=== PATIENT | male | born 1955 | race Caucasian/White ===

== ENCOUNTER 2016-04-16 08:49 | Inpatient (IN) | payer MEDICARE, OTHER ==
[2016-04-16] MEDS ORDERED: IPRATROPIUM 0.5 MG/2.5 ML NEBU INHALATION STA (09:00)
[2016-04-16] MEDS ORDERED: ALBUTEROL NEBULIZED 2.5 MG/3 ML INHALATION STA (09:00)
--- NOTE | 2016-04-16 09:02 | ED ---
General Adult HPI - General Stated complaint: TAWNY Time Seen by Provider: 04/16/16 08:50 Source: RN notes reviewed - History of Present Illness Initial comments: This is a 61-year-old male with past medical history significant for some chronic cellulitis on his legs as well as COPD. Patient states he has not been using his treatments as of late because he doesn't think they work. Patient states his difficulty breathing is gotten progressively worse over the last 3 days. Patient states she's had no chest pain or palpitations. Patient states had no fever chills or cough. Patient states the difficulty breathing is getting worse particularly with movement. Patient denies any abdominal pain. Patient denies nausea vomiting or diarrhea. Patient denies headache patient denies numbness weakness. Patient denies lightheadedness dizziness or near- syncopal episode. - Related Data Home Medications Medication Instructions Recorded Confirmed ARIPiprazole [Abilify] 2 mg PO DAILY 12/08/13 03/24/16 Albuterol Inhaler [Ventolin Hfa 2 puff INHALATION RT-QID PRN 12/08/13 03/24/16 Inhaler] Lisinopril [Zestril] 20 mg PO DAILY 12/08/13 03/24/16 Theophylline 24 Hour [Mark-24] 400 mg PO HS 12/08/13 03/24/16 Venlafaxine HCl ER [Effexor XR] 150 mg PO DAILY 12/08/13 03/24/16 Hydrochlorothiazide [Hydrodiuril] 50 mg PO DAILY 07/09/15 03/24/16 Allopurinol [Zyloprim] 300 mg PO DAILY 11/11/15 03/24/16 Diphenox-Atrop 2.5-0.025 mg 2 tab PO QID PRN 11/11/15 03/24/16 [Lomotil] Furosemide [Lasix] 40 mg PO DAILY 11/11/15 03/24/16 buPROPion HCL [Wellbutrin XL] 300 mg PO DAILY 11/11/15 03/24/16 clonazePAM [KlonoPIN] 0.5 mg PO QAM 12/09/15 03/24/16 clonazePAM [KlonoPIN] 2 mg PO HS 12/09/15 03/24/16 Ergocalciferol (Vitamin D2) 50,000 unit PO Q30D 01/12/16 03/24/16 [Drisdol] Butalbit/Acetamin/Caff/Codeine 1 cap PO Q6H PRN 03/24/16 03/24/16 [Fioricet-Cod 17-767-52-30 Cap] traZODone HCL 225 mg PO HS 03/24/16 03/24/16 Previous Rx's Medication Instructions Recorded HYDROcodone/APAP 7.5-325MG [[place] 1 tab PO Q6HR PRN #30 tab 07/12/15 7.5-325] QUEtiapine [SEROquel] 100 mg PO HS tab 08/24/15 predniSONE 10 mg PO DAILY tab 11/13/15 Doxazosin [Cardura] 1 mg PO DAILY tab 12/11/15 Ipratropium-Albuterol Nebulize 3 ml INHALATION RT-QID ampul.neb 12/11/15 [Duoneb 0.5 mg-3 mg/3 ml Soln] Allergies Allergy/AdvReac Type Severity Reaction Status Date / Time No Known Allergies Allergy Verified 04/16/16 09:45 Review of Systems ROS Statement: Those systems with pertinent positive or pertinent negative responses have been documented in the HPI. ROS Other: All systems not noted in ROS Statement are negative. Past Medical History Past Medical History: Asthma, Chest Pain / Angina, COPD, Hypertension, Osteoarthritis (OA), Respiratory Disorder Additional Past Medical History / Comment(s): O2 AT HOME 5 LITERS N/C CONT, MIGRAINES, obesity, KODI LOWER LEG CELLULITIS. History of Any Multi-Drug Resistant Organisms: None Reported Past Surgical History: Appendectomy, Orthopedic Surgery Additional Past Surgical History / Comment(s): RT EYE SX, RT ANKLE BROKEN 1977 HAD ORIF PLATE/PINS Past Anesthesia/Blood Transfusion Reactions: No Reported Reaction Additional Past Anesthesia/Blood Transfusion Reaction / Comment(s): CLAUSTERPHOBIA Past Psychological History: Anxiety, Depression Additional Psychological History / Comment(s): PT CURRENTLY LIVING AT [facility]. USES WALKER/POWER CHAIR BUT STATED ONLY ABLE TO AMBULATE VERY SHORT DISTANCES AND GETS SOB WITH EXERTION. PT IS RETIRED FROM [email or web address]. Smoking Status: Former smoker Past Alcohol Use History: None Reported Additional Past Alcohol Use History / Comment(s): STARTED SMOKING AT AGE 11 SMOKED 2 PPD QUIT 2010, HAS'NT DRANK ETOH SINCE AGE 28(STATED WAS AN ALCOHOLIC FROM AGE [age]) Past Drug Use History: None Reported - Past Family History Father Family Medical History: Diabetes Mellitus Additional Family Medical History / Comment(s): IN 2004 COMPLICATIONS FROM DIABETES Mother Additional Family Medical History / Comment(s): AGE 56 OF FEMALE [place] General Exam - General Exam Comments Initial Comments: GENERAL: Patient is well-developed and well-nourished. Patient is nontoxic and well- hydrated and is in mild distress. ENT: Neck is soft and supple. No significant lymphadenopathy is noted. Oropharynx is clear. Moist mucous membranes. Neck has full range of motion without eliciting any pain. EYES: The sclera were anicteric and conjunctiva were pink and moist. Extraocular movements were intact and pupils were equal round and reactive to light. Eyelids were unremarkable. PULMONARY: Patient has diminished breath sounds with some expiratory wheezing. CARDIOVASCULAR: There is a regular rate and rhythm without any murmurs gallops or rubs. ABDOMEN: Soft and nontender with normal bowel sounds. No palpable organomegaly was noted. There is no palpable pulsatile mass. SKIN: Skin is clear with no lesions or rashes and otherwise unremarkable. NEUROLOGIC: Patient is alert and oriented x3. Cranial nerves II through XII are grossly intact. Motor and sensory are also intact. Normal speech, volume and content. Symmetrical smile. MUSCULOSKELETAL: Normal extremities with adequate strength and full range of motion. No lower extremity swelling or edema. No calf tenderness. LYMPHATICS: No significant lymphadenopathy is noted PSYCHIATRIC: Normal psychiatric evaluation. Normal interpersonal interactions appears functionally intact in deals appropriately with others. No signs of depression. No signs of anxiety. Course Vital Signs 04/16/16 04/16/16 04/16/16 09:07 09:10 09:20 Temperature 97.3 F L Pulse Rate 89 88 Respiratory 18 18 Rate Blood Pressure 134/76 O2 Sat by Pulse 97 Oximetry 04/16/16 04/16/16 09:50 10:29 Temperature Pulse Rate 91 99 Respiratory 18 Rate Blood Pressure 139/71 O2 Sat by Pulse 95 Oximetry Medical Decision Making - Medical Decision Making According to EMS he was oxygenating in the mid 80s when they found him. Patient received breathing treatments in the emergency department after the treatment she still had an x-ray recent diminished breath sounds. I spoke Dr. Boyer and he wanted the patient admitted the patient. EKG shows normal sinus rhythm at 96 bpm PA interval is on a 56 QRS is 90 QT interval 366 QTC is 462. Patient's EKG shows no ST segment elevation or depression or T wave abnormalities are noted. - Lab Data Result diagrams: 04/16/16 09:35 04/16/16 09:35 Lab Results 04/16/16 04/16/16 04/16/16 Range/Units 09:35 09:35 09:35 WBC 9.2 (3.8-10.6) k/uL RBC 5.10 (4.30-5.90) m/uL Hgb 15.4 (13.0-17.5) gm/dL Hct 48.1 (39.0-53.0) % MCV 94.4 (80.0-100.0) fL MCH 30.3 (25.0-35.0) pg MCHC 32.1 (31.0-37.0) g/dL RDW 14.4 (11.5-15.5) % Plt Count 282 (150-450) k/uL Neutrophils % 72 % Lymphocytes % 10 % Monocytes % 10 % Eosinophils % 5 % Basophils % 1 % Neutrophils # 6.6 (1.3-7.7) k/uL Lymphocytes # 0.9 L (1.0-4.8) k/uL Monocytes # 0.9 (0-1.0) k/uL Eosinophils # 0.5 (0-0.7) k/uL Basophils # 0.1 (0-0.2) k/uL PT (9.0-12.0) sec INR (<1.1) APTT (22.0-30.0) sec Sodium 137 (137-145) mmol/L Potassium 4.2 (3.5-5.1) mmol/L Chloride 98 (98-107) mmol/L Carbon Dioxide 31 H (22-30) mmol/L Anion Gap 8 mmol/L BUN 9 (9-20) mg/dL Creatinine 0.80 (0.66-1.25) mg/dL Est GFR (MDRD) Af Amer >60 (>60 ml/min/1.73 sqM) Est GFR (MDRD) Non-Af >60 (>60 ml/min/1.73 sqM) Glucose 114 H (74-99) mg/dL Calcium 9.3 (8.4-10.2) mg/dL Magnesium 2.0 (1.6-2.3) mg/dL Total Bilirubin 0.3 (0.2-1.3) mg/dL AST 28 (17-59) U/L ALT 39 (21-72) U/L Alkaline Phosphatase 79 (38-126) U/L Total Creatine Kinase 68 (55-170) U/L CK-MB (CK-2) 1.5 (0.0-2.4) ng/mL CK-MB (CK-2) Rel Index 2.2 Troponin I <0.012 (0.000-0.034) ng/mL NT-Pro-B Natriuret Pep pg/mL Total Protein 6.3 (6.3-8.2) g/dL Albumin 3.9 (3.5-5.0) g/dL 04/16/16 04/16/16 Range/Units 09:35 09:35 WBC (3.8-10.6) k/uL RBC (4.30-5.90) m/uL Hgb (13.0-17.5) gm/dL Hct (39.0-53.0) % MCV (80.0-100.0) fL MCH (25.0-35.0) pg MCHC (31.0-37.0) g/dL RDW (11.5-15.5) % Plt Count (150-450) k/uL Neutrophils % % Lymphocytes % % Monocytes % % Eosinophils % % Basophils % % Neutrophils # (1.3-7.7) k/uL Lymphocytes # (1.0-4.8) k/uL Monocytes # (0-1.0) k/uL Eosinophils # (0-0.7) k/uL Basophils # (0-0.2) k/uL PT 10.2 (9.0-12.0) sec INR 1.0 (<1.1) APTT 25.1 (22.0-30.0) sec Sodium (137-145) mmol/L Potassium (3.5-5.1) mmol/L Chloride (98-107) mmol/L Carbon Dioxide (22-30) mmol/L Anion Gap mmol/L BUN (9-20) mg/dL Creatinine (0.66-1.25) mg/dL Est GFR (MDRD) Af Amer (>60 ml/min/1.73 sqM) Est GFR (MDRD) Non-Af (>60 ml/min/1.73 sqM) Glucose (74-99) mg/dL Calcium (8.4-10.2) mg/dL Magnesium (1.6-2.3) mg/dL Total Bilirubin (0.2-1.3) mg/dL AST (17-59) U/L ALT (21-72) U/L Alkaline Phosphatase (38-126) U/L Total Creatine Kinase (55-170) U/L CK-MB (CK-2) (0.0-2.4) ng/mL CK-MB (CK-2) Rel Index Troponin I (0.000-0.034) ng/mL NT-Pro-B Natriuret Pep 139 pg/mL Total Protein (6.3-8.2) g/dL Albumin (3.5-5.0) g/dL Disposition Clinical Impression: Acute exacerbation of chronic obstructive airways disease Disposition: ADMITTED IP TO THIS HOSP Referrals: Brien Simms MD [Primary Care Provider] - 1-2 days Time of Disposition: 11:45
[2016-04-16 09:59] LABS: Basophils # (A) 0.1 k/uL (0-0.2); Basophils % (A) 1 %; CH 30.8; CHCM 32.8; Eosinophils # (A) 0.5 k/uL (0-0.7); Eosinophils % (A) 5 %; HCT 48.1 % (39.0-53.0); HDW 2.67; HGB 15.4 gm/dL (13.0-17.5); Luc # (Auto) 0.25; Luc % (Auto) 3; Lymphocytes # (A) 0.9 k/uL (1.0-4.8); Lymphocytes % (A) 10 %; MCH 30.3 pg (25.0-35.0); MCHC 32.1 g/dL (31.0-37.0); MCV 94.4 fL (80.0-100.0); Mean Platelet Volume 8.2; Monocytes # (A) 0.9 k/uL (0-1.0); Monocytes % (A) 10 %; Neutrophils # (A) 6.6 k/uL (1.3-7.7); Neutrophils % (A) 72 %; RDW 14.4 % (11.5-15.5); WBC 9.2 k/uL (3.8-10.6); WBC (Perox) 9.12
[2016-04-16 10:11] LABS: ALT 39 U/L (21-72); AST 28 U/L (17-59); Alkaline Phosphatase 79 U/L (38-126); Anion Gap 8 mmol/L; Blood Urea Nitrogen 9 mg/dL (9-20); Calcium 9.3 mg/dL (8.4-10.2); Carbon Dioxide 31 mmol/L (22-30); Chloride 98 mmol/L (98-107); Glucose 114 mg/dL (74-99); Non-African American GFR(MDRD) >60 (>60 ml/min/1.73 sqM); Potassium 4.2 mmol/L (3.5-5.1); Sodium 137 mmol/L (137-145); Total Bilirubin 0.3 mg/dL (0.2-1.3); Total Protein 6.3 g/dL (6.3-8.2)
[2016-04-16 10:14] LABS: Partial Thromboplastin Time 25.1 sec (22.0-30.0); Prothrombin Time 10.2 sec (9.0-12.0)
--- NOTE | 2016-04-16 10:17 | XR ---
EXAMINATION TYPE: XR chest 2V DATE OF EXAM: 04/16/2016 10:10 AM COMPARISON: NONE INDICATION: Difficulty breathing COPD abnormal previous TECHNIQUE: Frontal and lateral views of the chest are obtained. FINDINGS: The heart size is normal. The pulmonary vasculature is normal. There are increased lung markings to the left midlung. Nodular density somewhat better visualized on the left infrahilar region. Small left pleural effusion likely remains present. Parapharyngeal increa sed lung markings at the right lung base, milder than on the left. Overall, the bilateral lung infilt rates have improved. IMPRESSION: 1. Pleural effusions, larger on the left. 2. Bibasilar infiltrates. There may be some improvement from prior examination. 3. Nodular density in the left infrahilar region is not excluded this would measure 1 cm in transvers e dimension
[2016-04-16 10:25] LABS: Creatine Kinase 68 U/L (55-170)
[2016-04-16 10:39] LABS: Creatine Kinase MB 1.5 ng/mL (0.0-2.4); Troponin I <0.012 ng/mL (0.000-0.034)
[2016-04-16] MEDS ORDERED: IPRATROPIUM-ALBUTEROL 3 ML NEB INHALATION PRN (11:45)
[2016-04-16] MEDS: methylPREDNISolone SOD SUCCI 125 MG/2 ML VIAL IV SCH ×4 (12:38→22:52)
[2016-04-16] MEDS ORDERED: DIPHENOX-ATROP 2.5-0.025 MG 1 EACH TAB PO PRN (14:40)
[2016-04-16] MEDS ORDERED: BUTA/APAP/CAF/COD 50-325-40-30 CAP PO PRN (14:40)
[2016-04-16] MEDS: HYDROcodone/APAP 7.5-325MG 1 EACH TAB PO PRN (15:32)
[2016-04-16] MEDS: IPRATROPIUM-ALBUTEROL 3 ML NEB INHALATION SCH ×2 (15:59→20:45)
[2016-04-16] MEDS: INSULIN LISPRO (humaLOG) 300 UNIT/3 ML VIAL SQ SCH ×2 (17:29→21:23)
--- NOTE | 2016-04-16 20:23 | HP ---
DATE OF ADMISSION: 04/16/2016 CHIEF COMPLAINT: Difficulty breathing. HISTORY OF PRESENT ILLNESS: This is another admission for this 61-year-old obese male with COPD. He is very noncompliant and takes poor care of himself and frequently develops respiratory failure and comes to the emergency room. He was just in the hospital a few weeks ago. In the ER he complained of no hemoptysis, chest pain, fever, chills, nausea, vomiting, etc. The emergency room physician felt that he should be admitted. REVIEW OF SYSTEMS: Otherwise unremarkable. He is having no headaches, neurologic problems, GI problems, etc. Past medical history, family history, and personal and social histories are all otherwise unremarkable and noncontributory and unchanged. ALLERGIES: ALLOPURINOL. MEDICATIONS: 1. Seroquel 100 mg at bedtime. 2. Lisinopril 20 mg once a day. 3. Lomotil 2 q.i.d. p.r.n. 4. Lasix 40 mg once a day. 5. Fioricet p.r.n. 6. Nasal oxygen and updrafts. 7. Vicodin 7.5/325. 8. Abilify 2 mg once a day. 9. Prednisone 10 mg once a day. 10. Hydrochlorothiazide 50 mg once a day. 11. Vitamin D 50,000 units a month. 12. Cardura 1 mg once a day. 13. Symbicort 160/4.5 one puff twice a day. 14. Wellbutrin 300 mg once a day. 15. Theophylline 400 mg once a night. 16. Effexor 150 mg once a day. 17. Metronidazole cream twice a day. 18. Updrafts with DuoNeb and Ventolin HFA. Remainder of history is unremarkable. He does not smoke any longer. PHYSICAL EXAMINATION: VITAL SIGNS: Blood pressure 126/84 with a pulse of 98, respirations of 38, temperature 99.6. In general he appeared to be short of breath and in no acute distress. Skin was dry. Lymph nodes are not enlarged. Head, ears, eyes, nose, mouth and throat were normal. The chest demonstrated poor breath sounds with wheezing and rhonchi. The cardiac exam was normal except for sinus tachycardia. The abdomen is protuberant and soft. Extremities demonstrated ( ) dermatitis on the legs and there was edema. IMPRESSION: 1. Acute respiratory failure. 2. Chronic obstructive pulmonary disease. 3. Schizophrenia. PLAN: 1. Bed rest. 2. IV fluids. 3. IV and inhaled steroids. 4. Updrafts.
[2016-04-16] MEDS: SYMBICORT 160-4.5 MCG INHALER INHALATION SCH (20:45)
[2016-04-16] MEDS ORDERED: THEOPHYLLINE 24 HOUR 400 MG CAP.ER.24H PO SCH (21:00)
[2016-04-16] MEDS ORDERED: clonazePAM 1 MG TAB PO SCH (21:00)
[2016-04-16] MEDS ORDERED: traZODone HCL 100 MG TAB PO SCH (21:00)
[2016-04-16] MEDS ORDERED: QUEtiapine 100 MG TAB PO SCH (21:00)
[2016-04-16] MEDS: AMMONIUM LACTATE 12% LOTION 225 GM BTL TOPICAL SCH (22:23)
[2016-04-16] MEDS ORDERED: traZODone HCL 50 MG TAB PO PRN (23:41)
[2016-04-17] MEDS: HYDROcodone/APAP 7.5-325MG 1 EACH TAB PO PRN (00:24)
[2016-04-17] MEDS: methylPREDNISolone SOD SUCCI 125 MG/2 ML VIAL IV SCH (05:03)
[2016-04-17] MEDS: IPRATROPIUM-ALBUTEROL 3 ML NEB INHALATION SCH ×2 (06:56→10:55)
[2016-04-17] MEDS: SYMBICORT 160-4.5 MCG INHALER INHALATION SCH (06:57)
[2016-04-17 07:50] VITALS: BP 149/70; PULSE 74; RESP 21; TEMP 97
[2016-04-17] MEDS: INSULIN LISPRO (humaLOG) 300 UNIT/3 ML VIAL SQ SCH (08:04)
[2016-04-17] MEDS: AMMONIUM LACTATE 12% LOTION 225 GM BTL TOPICAL SCH (08:09)
[2016-04-17 08:48] LABS: Basophils # (A) 0.1 k/uL (0-0.2); Basophils % (A) 1 %; CH 30.7; CHCM 32.2; Eosinophils # (A) 0.4 k/uL (0-0.7); Eosinophils % (A) 3 %; HCT 46.6 % (39.0-53.0); HDW 2.52; HGB 14.5 gm/dL (13.0-17.5); Luc # (Auto) 0.41; Luc % (Auto) 3; Lymphocytes # (A) 1.3 k/uL (1.0-4.8); Lymphocytes % (A) 10 %; MCHC 31.2 g/dL (31.0-37.0); MCV 95.9 fL (80.0-100.0); Mean Platelet Volume 8.4; Monocytes # (A) 0.4 k/uL (0-1.0); Monocytes % (A) 3 %; Neutrophils % (A) 80 %; RBC 4.85 m/uL (4.30-5.90); RDW 14.6 % (11.5-15.5); WBC 12.6 k/uL (3.8-10.6); WBC (Perox) 12.62
[2016-04-17 08:57] LABS: ALT 36 U/L (21-72); AST 32 U/L (17-59); Alkaline Phosphatase 81 U/L (38-126); Anion Gap 10 mmol/L; Blood Urea Nitrogen 15 mg/dL (9-20); Calcium 9.5 mg/dL (8.4-10.2); Carbon Dioxide 33 mmol/L (22-30); Chloride 97 mmol/L (98-107); Glucose 94 mg/dL (74-99); Non-African American GFR(MDRD) >60 (>60 ml/min/1.73 sqM); Potassium 4.6 mmol/L (3.5-5.1); Sodium 140 mmol/L (137-145); Total Bilirubin 0.4 mg/dL (0.2-1.3); Total Protein 6.3 g/dL (6.3-8.2)
[2016-04-17] MEDS ORDERED: HYDROCHLOROTHIAZIDE 50 MG TAB PO SCH (09:00)
[2016-04-17] MEDS ORDERED: LISINOPRIL 20 MG TAB PO SCH (09:00)
[2016-04-17] MEDS ORDERED: VENLAFAXINE HCL ER 150 MG CAP PO SCH (09:00)
[2016-04-17] MEDS ORDERED: FUROSEMIDE 40 MG TAB PO SCH (09:00)
[2016-04-17] MEDS ORDERED: ARIPiprazole 2 MG TAB PO SCH (09:00)
[2016-04-17] MEDS ORDERED: DOXAZOSIN 1 MG TAB PO SCH (09:00)
[2016-04-17] MEDS ORDERED: buPROPion XL 300 MG TAB.ER.24H PO SCH (09:00)
[2016-04-17] MEDS ORDERED: clonazePAM 0.5 MG TAB PO SCH (09:00)
[2016-04-17] MEDS ORDERED: ALLOPURINOL 300 MG TAB PO SCH (09:00)
--- NOTE | 2016-04-17 11:18 | P.DS ---
Providers Date of admission: 04/16/16 11:45 Expected date of discharge: 04/17/16 Attending physician: Brien Meyers Primary care physician: Brien Meyers [facility] Course: 61-year-old male presented on the day of admission to the emergency room for chief complaint of shortness of breath stated has gotten progressively worse over the last several days. Patient has known severe COPD. Additionally patient has chronic cellulitis involving the bilateral lower extremities. Patient stated that he had not been using his respiratory treatments for the past several days because he didn't think they were working for him. Patient denies any fever chills or cough. Patient denies any chest pain or heart palpitation. Patient denies any nausea vomiting. Patient stated his breathing seem to be getting worse with any movement. Patient has limited mobility uses a wheelchair motorized scooter. In the emergency room there was no evidence of a temp was 97.3 patient was afebrile patient has been very noncompliant with care follow-up visits in taking medication as directed. Patient was discharged on March 25 of this year for the same symptoms shortness of breath. Patient is not follow-up in the outpatient setting. It's noted that the patient has been refusing IV Solu-Medrol as well as respiratory treatments he feels they do not help him The chest x-ray obtained in the emergency room showed bilateral effusions larger on the left but basal infiltrate some improvement from prior patient refused all care insisted on going home Impression discharge diagnosis Present on admission shortness of breath noncompliant with using respiratory treatments at home Chronic dyspnea Advanced COPD supplemental oxygen home O2 5 L [id number] Morbid obesity BMI 43 Present on admission shortness of breath acute exacerbation asthma moderate persistent unable to determine the type Chest x-ray on admission pleural effusion larger on the left Chronic hypoxic respiratory failure home O2 supplement 5 L [id number] Chronic debilitated limited mobility uses a motorized scooter suspect due to deconditioning and advanced COPD Chronic pain opiate dependency Asthma with a COPD exacerbation Echocardiogram January 2016 left ventricular systolic function normal EF 55-60% no evidence of pulmonary hypertension Acute on chronic diastolic heart failure due to hypertensive heart disease with history of hypertension Frequent reoccurring admissions within the last 60 days suspect due to issues of noncompliance Bilateral chronic stasis dermatitis involving the bilateral lower extremities Present on admission chronic stasis dermatitis involving the bilateral lower extremities History of a mood disorder suspect bipolar The above dictated assessment and findings were discussed with dr meyers . Impression and the plan of care have been dictated as directed. [facility] [place] nurse practitioner acting as a scribe for dr meyers Plan - Discharge Summary Discharge Medication List ARIPiprazole [Abilify] 2 mg PO DAILY 12/08/13 [History] Albuterol Inhaler [Ventolin Hfa Inhaler] 2 puff INHALATION RT-QID PRN 12/08/13 [ History] Lisinopril [Zestril] 20 mg PO DAILY 12/08/13 [History] Theophylline 24 Hour [Mark-24] 400 mg PO HS 12/08/13 [History] Venlafaxine HCl ER [Effexor XR] 150 mg PO DAILY 12/08/13 [History] Hydrochlorothiazide [Hydrodiuril] 50 mg PO DAILY 07/09/15 [History] HYDROcodone/APAP 7.5-325MG [[place] 7.5-325] 1 tab PO Q6HR PRN #30 tab 07/12/15 [ Rx] QUEtiapine [SEROquel] 100 mg PO HS tab 08/24/15 [Rx] Allopurinol [Zyloprim] 300 mg PO DAILY 11/11/15 [History] Diphenox-Atrop 2.5-0.025 mg [Lomotil] 2 tab PO QID PRN 11/11/15 [History] Furosemide [Lasix] 40 mg PO DAILY 11/11/15 [History] buPROPion HCL [Wellbutrin XL] 300 mg PO DAILY 11/11/15 [History] clonazePAM [KlonoPIN] 0.5 mg PO QAM 12/09/15 [History] clonazePAM [KlonoPIN] 2 mg PO HS 12/09/15 [History] Doxazosin [Cardura] 1 mg PO DAILY tab 12/11/15 [Rx] Ipratropium-Albuterol Nebulize [Duoneb 0.5 mg-3 mg/3 ml Soln] 3 ml INHALATION RT -QID ampul.neb 12/11/15 [Rx] Ergocalciferol (Vitamin D2) [Drisdol] 50,000 unit PO Q30D 01/12/16 [History] Butalbit/Acetamin/Caff/Codeine [Fioricet-Cod 32-241-07-30 Cap] 1 cap PO Q6H PRN 03/24/16 [History] Budesonide/Formoterol Fumarate [Symbicort 160-4.5 Mcg Inhaler] 2 puff INHALATION RT-BID 04/16/16 [History] traZODone HCL 300 mg PO HS 04/16/16 [History] Follow up Appointment(s)/Referral(s): Brien Meyers MD [Primary Care Provider] - 1-2 days Discharge Disposition: HOME SELF-CARE
--- NOTE | 2016-04-17 19:13 | PN ---
DATE OF SERVICE: 04/17/2016 CHIEF COMPLAINT: Exacerbation of COPD. HISTORY OF PRESENT ILLNESS: This gentleman is doing well and he feels like he is completely cleared and could go back home. PHYSICAL EXAMINATION: His chest is clear but breath sounds are diminished due to his obesity and COPD. Cardiac exam is normal. The abdomen is soft and non-tender. Lower extremities remain erythematous and edematous, which is chronic. IMPRESSION: Exacerbation of chronic obstructive pulmonary disease. PLAN: Probably home today; this will be arranged by the nurse practitioner.
[2016-05-16] MEDS ORDERED: ERGOCALCIFEROL 50,000 UNIT CAP PO SCH (12:00)
== END 2016-04-17 13:48 | disposition home health service (06) | DRG 190 ==
LOC: EC 08:49 → 4MS4W 11:45
PROVIDERS: ADMIT Family Medicine; ATTEND Family Medicine
DX: J44.1 Chronic obstructive pulmonary disease with (acute) exacerbation (principal); I50.33 Acute on chronic diastolic (congestive) heart failure; J96.21 Acute and chronic respiratory failure with hypoxia; Z68.41 Body mass index [BMI] 40.0-44.9, adult; F11.20 Opioid dependence, uncomplicated; J45.41 Moderate persistent asthma with (acute) exacerbation; Z99.81 Dependence on supplemental oxygen; E66.01 Morbid (severe) obesity due to excess calories; I11.0 Hypertensive heart disease with heart failure; G89.29 Other chronic pain; M19.90 Unspecified osteoarthritis, unspecified site; I87.2 Venous insufficiency (chronic) (peripheral); F39 Unspecified mood [affective] disorder; Z91.19 Patient's noncompliance with other medical treatment and regimen; Z71.3 Dietary counseling and surveillance; Z90.49 Acquired absence of other specified parts of digestive tract; Z87.891 Personal history of nicotine dependence; Z79.51 Long term (current) use of inhaled steroids; Z79.899 Other long term (current) drug therapy; F41.9 Anxiety disorder, unspecified; G43.909 Migraine, unspecified, not intractable, without status migrainosus
CPT/HCPCS: 36415; 71020; 80053; 82550; 82553; 83735; 83880; 84484; 85025; 85610; 85730; 87040; 93005; 94640; 96374; 99285

== ENCOUNTER 2016-04-24 23:11 | Emergency (ER) | payer MEDICARE, OTHER ==
[2016-04-24 23:16] VITALS: TEMP 98.8
[2016-04-24] MEDS ORDERED: predniSONE 20 MG TAB PO STA (23:30)
[2016-04-24] MEDS ORDERED: IPRATROPIUM-ALBUTEROL 3 ML NEB INHALATION STA (23:30)
[2016-04-24 23:47] LABS: Aty Lym Flag Slight; CH 31.2; CHCM 33.2; HCT 46.4 % (39.0-53.0); HGB 14.9 gm/dL (13.0-17.5); MCH 30.2 pg (25.0-35.0); MCHC 32.1 g/dL (31.0-37.0); MCV 94.3 fL (80.0-100.0); Mean Platelet Volume 8.4; RBC 4.92 m/uL (4.30-5.90); RDW 14.7 % (11.5-15.5); WBC 10.5 k/uL (3.8-10.6); WBC (Perox) 10.55
--- NOTE | 2016-04-24 23:54 | ED ---
SOB HPI - General Chief Complaint: Shortness of Breath Stated Complaint: TAWNY Time Seen by Provider: 04/24/16 23:20 Source: patient, RN notes reviewed Mode of arrival: ambulatory - History of Present Illness Initial Comments: This patient is a 61-year-old man with previous history of COPD who presents with the complaint that his shortness of breath and flaring up for about 3-4 days now. The patient states that he had been trying albuterol at home but it doesn't seem to be helping much. He also is on home oxygen and states that it does not seem to be helping either. The patient is denying fevers or chills. He does have a cough with some yellow sputum for the past 2-3 days. He is not seeing any blood. Patient denies chest pain. He has not noted any change in urination. He does have some bilateral leg swelling but states that he has been having a flareup of cellulitis going on for about 3 weeks now. MD Complaint: shortness of breath, cough -: days(s) Known History Of: COPD Associated Symptoms: cough, sputum production - Related Data Home Medications Medication Instructions Recorded Confirmed ARIPiprazole [Abilify] 2 mg PO DAILY 12/08/13 04/24/16 Albuterol Inhaler [Ventolin Hfa 2 puff INHALATION RT-QID PRN 12/08/13 04/24/16 Inhaler] Lisinopril [Zestril] 20 mg PO DAILY 12/08/13 04/24/16 Theophylline 24 Hour [Mark-24] 400 mg PO HS 12/08/13 04/24/16 Venlafaxine HCl ER [Effexor XR] 150 mg PO DAILY 12/08/13 04/24/16 Hydrochlorothiazide [Hydrodiuril] 50 mg PO DAILY 07/09/15 04/24/16 Allopurinol [Zyloprim] 300 mg PO DAILY 11/11/15 04/24/16 Diphenox-Atrop 2.5-0.025 mg 2 tab PO QID PRN 11/11/15 04/24/16 [Lomotil] Furosemide [Lasix] 40 mg PO DAILY 11/11/15 04/24/16 buPROPion HCL [Wellbutrin XL] 300 mg PO DAILY 11/11/15 04/24/16 clonazePAM [KlonoPIN] 0.5 mg PO QAM 12/09/15 04/24/16 clonazePAM [KlonoPIN] 2 mg PO HS 12/09/15 04/24/16 Ergocalciferol (Vitamin D2) 50,000 unit PO Q30D 01/12/16 04/24/16 [Drisdol] Butalbit/Acetamin/Caff/Codeine 1 cap PO Q6H PRN 03/24/16 04/24/16 [Fioricet-Cod 42-896-20-30 Cap] Budesonide/Formoterol Fumarate 2 puff INHALATION RT-BID 04/16/16 04/24/16 [Symbicort 160-4.5 Mcg Inhaler] traZODone HCL 300 mg PO HS 04/16/16 04/24/16 Previous Rx's Medication Instructions Recorded HYDROcodone/APAP 7.5-325MG [[place] 1 tab PO Q6HR PRN #30 tab 07/12/15 7.5-325] QUEtiapine [SEROquel] 100 mg PO HS tab 08/24/15 Doxazosin [Cardura] 1 mg PO DAILY tab 12/11/15 Ipratropium-Albuterol Nebulize 3 ml INHALATION RT-QID ampul.neb 12/11/15 [Duoneb 0.5 mg-3 mg/3 ml Soln] Levofloxacin [Levaquin] 750 mg PO DAILY #7 tab 04/25/16 predniSONE 60 mg PO DAILY #30 tab 04/25/16 Allergies Allergy/AdvReac Type Severity Reaction Status Date / Time No Known Allergies Allergy Verified 04/24/16 23:33 Review of Systems ROS Statement: Those systems with pertinent positive or pertinent negative responses have been documented in the HPI. ROS Other: All systems not noted in ROS Statement are negative. Constitutional: Denies: fever, chills Respiratory: Reports: cough, dyspnea, wheezes. Denies: hemoptysis Cardiovascular: Reports: edema. Denies: chest pain, palpitations, syncope Gastrointestinal: Denies: abdominal pain, nausea, vomiting Genitourinary: Denies: dysuria, hematuria Musculoskeletal: Denies: back pain Skin: Reports: change in color, other (States he is having a flareup of cellulitis past 3 weeks). Denies: rash Neurological: Denies: headache, weakness, numbness Past Medical History Past Medical History: Asthma, Chest Pain / Angina, COPD, Hypertension, Osteoarthritis (OA), Respiratory Disorder Additional Past Medical History / Comment(s): O2 AT HOME 5 LITERS N/C CONT, MIGRAINES, obesity, KODI LOWER LEG CELLULITIS. History of Any Multi-Drug Resistant Organisms: None Reported Past Surgical History: Appendectomy, Orthopedic Surgery Additional Past Surgical History / Comment(s): RT EYE SX, RT ANKLE BROKEN 1977 HAD ORIF PLATE/PINS Past Anesthesia/Blood Transfusion Reactions: No Reported Reaction Additional Past Anesthesia/Blood Transfusion Reaction / Comment(s): CLAUSTERPHOBIA Past Psychological History: Anxiety, Depression Additional Psychological History / Comment(s): PT CURRENTLY LIVING AT [facility]. USES WALKER/POWER CHAIR BUT STATED ONLY ABLE TO AMBULATE VERY SHORT DISTANCES AND GETS SOB WITH EXERTION. PT IS RETIRED FROM [employer]. Smoking Status: Former smoker Past Alcohol Use History: None Reported Additional Past Alcohol Use History / Comment(s): STARTED SMOKING AT AGE 11 SMOKED 2 PPD QUIT 2010, HAS'NT DRANK ETOH SINCE AGE 28(STATED WAS AN ALCOHOLIC FROM AGE [age]) Past Drug Use History: None Reported - Past Family History Father Family Medical History: Diabetes Mellitus Additional Family Medical History / Comment(s): IN 2004 COMPLICATIONS FROM DIABETES Mother Additional Family Medical History / Comment(s): AGE 56 OF FEMALE [place] General Exam General appearance: alert, obese Head exam: Present: atraumatic, normocephalic Eye exam: Present: normal appearance. Absent: scleral icterus, conjunctival injection Respiratory exam: Present: respiratory distress (Mild tachypnea), wheezes. Absent: rales, rhonchi, stridor, decreased breath sounds, prolonged expiratory Cardiovascular Exam: Present: regular rate, normal rhythm, normal heart sounds. Absent: systolic murmur, diastolic murmur, rubs, gallop GI/Abdominal exam: Present: soft. Absent: distended, tenderness, guarding Extremities exam: Present: normal capillary refill, pedal edema. Absent: normal inspection, calf tenderness Back exam: Present: normal inspection. Absent: CVA tenderness (R), CVA tenderness (L) Neurological exam: Present: alert Skin exam: Present: warm, dry, intact, erythema, other (Patient does appear to have cellulitis to the bilateral pretibial areas.) Course Vital Signs 04/24/16 04/24/16 04/25/16 23:12 23:58 00:07 Temperature 98.8 F Pulse Rate 101 H 89 92 Respiratory 24 Rate Blood Pressure 137/67 O2 Sat by Pulse 94 L Oximetry 04/25/16 04/25/16 00:15 01:35 Temperature Pulse Rate 88 94 Respiratory 20 22 Rate Blood Pressure 127/68 123/75 O2 Sat by Pulse 97 94 L Oximetry Medical Decision Making - Lab Data Result diagrams: 04/24/16 23:27 04/24/16 23:27 Lab Results 04/24/16 04/24/16 04/24/16 Range/Units 00:43 23:27 23:27 WBC 10.5 (3.8-10.6) k/uL RBC 4.92 (4.30-5.90) m/uL Hgb 14.9 (13.0-17.5) gm/dL Hct 46.4 (39.0-53.0) % MCV 94.3 (80.0-100.0) fL MCH 30.2 (25.0-35.0) pg MCHC 32.1 (31.0-37.0) g/dL RDW 14.7 (11.5-15.5) % Plt Count 234 (150-450) k/uL Neutrophils % (Manual) 73.0 % Lymphocytes % (Manual) 7.0 % Monocytes % (Manual) 20.0 % Neutrophils # (Manual) 7.7 (1.3-7.7) k/uL Lymphocytes # (Manual) 0.7 L (1.0-4.8) k/uL Monocytes # (Manual) 2.1 H (0-1.0) k/uL Nucleated RBCs 0 (0-0) /100 WBC Manual Slide Review Performed Reactive Lymphocytes Present Large Platelets Present PT (9.0-12.0) sec INR (<1.1) APTT (22.0-30.0) sec D-Dimer (<0.60) mg/L FEU Sodium (137-145) mmol/L Potassium (3.5-5.1) mmol/L Chloride (98-107) mmol/L Carbon Dioxide (22-30) mmol/L Anion Gap mmol/L BUN (9-20) mg/dL Creatinine (0.66-1.25) mg/dL Est GFR (MDRD) Af Amer (>60 ml/min/1.73 sqM) Est GFR (MDRD) Non-Af (>60 ml/min/1.73 sqM) Glucose (74-99) mg/dL Calcium (8.4-10.2) mg/dL Total Bilirubin (0.2-1.3) mg/dL AST (17-59) U/L ALT (21-72) U/L Alkaline Phosphatase (38-126) U/L Total Creatine Kinase 97 (55-170) U/L CK-MB (CK-2) 2.2 (0.0-2.4) ng/mL CK-MB (CK-2) Rel Index 2.3 Troponin I <0.012 (0.000-0.034) ng/mL NT-Pro-B Natriuret Pep pg/mL Total Protein (6.3-8.2) g/dL Albumin (3.5-5.0) g/dL Urine Color Yellow Urine Appearance Clear (Clear) Urine pH 6.0 (5.0-8.0) Ur Specific [place] 1.011 (1.001-1.035) Urine Protein Negative (Negative) Urine Glucose (UA) Negative (Negative) Urine Ketones Negative (Negative) Urine Blood Negative (Negative) Urine Nitrate Negative (Negative) Urine Bilirubin Negative (Negative) Urine Urobilinogen <2.0 (<2.0) mg/dL Ur Leukocyte Esterase Negative (Negative) 04/24/16 04/24/16 04/24/16 Range/Units 23:27 23:27 23:27 WBC (3.8-10.6) k/uL RBC (4.30-5.90) m/uL Hgb (13.0-17.5) gm/dL Hct (39.0-53.0) % MCV (80.0-100.0) fL MCH (25.0-35.0) pg MCHC (31.0-37.0) g/dL RDW (11.5-15.5) % Plt Count (150-450) k/uL Neutrophils % (Manual) % Lymphocytes % (Manual) % Monocytes % (Manual) % Neutrophils # (Manual) (1.3-7.7) k/uL Lymphocytes # (Manual) (1.0-4.8) k/uL Monocytes # (Manual) (0-1.0) k/uL Nucleated RBCs (0-0) /100 WBC Manual Slide Review Reactive Lymphocytes Large Platelets PT 10.6 (9.0-12.0) sec INR 1.1 (<1.1) APTT 24.4 (22.0-30.0) sec D-Dimer 0.71 H (<0.60) mg/L FEU Sodium 133 L (137-145) mmol/L Potassium 4.3 (3.5-5.1) mmol/L Chloride 95 L (98-107) mmol/L Carbon Dioxide 29 (22-30) mmol/L Anion Gap 9 mmol/L BUN 17 (9-20) mg/dL Creatinine 0.90 (0.66-1.25) mg/dL Est GFR (MDRD) Af Amer >60 (>60 ml/min/1.73 sqM) Est GFR (MDRD) Non-Af >60 (>60 ml/min/1.73 sqM) Glucose 97 (74-99) mg/dL Calcium 8.9 (8.4-10.2) mg/dL Total Bilirubin 0.5 (0.2-1.3) mg/dL AST 35 (17-59) U/L ALT 43 (21-72) U/L Alkaline Phosphatase 92 (38-126) U/L Total Creatine Kinase (55-170) U/L CK-MB (CK-2) (0.0-2.4) ng/mL CK-MB (CK-2) Rel Index Troponin I (0.000-0.034) ng/mL NT-Pro-B Natriuret Pep 161 pg/mL Total Protein 6.7 (6.3-8.2) g/dL Albumin 4.1 (3.5-5.0) g/dL Urine Color Urine Appearance (Clear) Urine pH (5.0-8.0) Ur Specific [place] (1.001-1.035) Urine Protein (Negative) Urine Glucose (UA) (Negative) Urine Ketones (Negative) Urine Blood (Negative) Urine Nitrate (Negative) Urine Bilirubin (Negative) Urine Urobilinogen (<2.0) mg/dL Ur Leukocyte Esterase (Negative) - EKG Data -: EKG Interpreted by [facility] EKG shows normal: sinus rhythm, axis (Normal), intervals (Normal), QRS complexes (Low voltage QRS complexes), ST-T waves (Normal) Rate: normal (Rate 98 bpm) Disposition Clinical Impression: COPD (chronic obstructive pulmonary disease), Cellulitis, Pneumonia Disposition: HOME SELF-CARE Condition: Fair Instructions: Pneumonia (ED), Cellulitis (ED) Prescriptions: Levofloxacin [Levaquin] 750 mg PO DAILY #7 tab predniSONE 60 mg PO DAILY #30 tab Referrals: Brien Simms MD [Primary Care Provider] - 1-2 days
[2016-04-24 23:59] LABS: ALT 43 U/L (21-72); AST 35 U/L (17-59); Alkaline Phosphatase 92 U/L (38-126); Anion Gap 9 mmol/L; Blood Urea Nitrogen 17 mg/dL (9-20); Calcium 8.9 mg/dL (8.4-10.2); Carbon Dioxide 29 mmol/L (22-30); Chloride 95 mmol/L (98-107); Glucose 97 mg/dL (74-99); Non-African American GFR(MDRD) >60 (>60 ml/min/1.73 sqM); Potassium 4.3 mmol/L (3.5-5.1); Sodium 133 mmol/L (137-145); Total Bilirubin 0.5 mg/dL (0.2-1.3); Total Protein 6.7 g/dL (6.3-8.2)
[2016-04-25 00:04] LABS: INR 1.1 (<1.1); Partial Thromboplastin Time 24.4 sec (22.0-30.0); Prothrombin Time 10.6 sec (9.0-12.0)
[2016-04-25 00:09] LABS: Creatine Kinase 97 U/L (55-170)
[2016-04-25 00:21] LABS: Creatine Kinase MB 2.2 ng/mL (0.0-2.4); Troponin I <0.012 ng/mL (0.000-0.034)
[2016-04-25 00:22] LABS: Add Differential Manual Differential
[2016-04-25 00:24] LABS: Large Platelets Present; Manual Review Performed; Nucleated Red Blood Cells 0 /100 WBC (0-0); Reactive Lymphocytes Present; Total Cells Counted 100
--- NOTE | 2016-04-25 00:27 | XR ---
EXAMINATION TYPE: XR chest 1V portable DATE OF EXAM: 04/25/2016 12:12 AM COMPARISON: 04/16/2016 HISTORY: Shortness of breath history of COPD. TECHNIQUE: Single frontal view of the chest is obtained. FINDINGS: Mild opacities are noted in both lung bases with mild infiltrates and atelectasis. Large emphysematou s bullae is noted in the left lung base. Mild blunting of left costophrenic angle is noted with chron ic mild pleural thickening or pleural effusion. Heart is not enlarged. Thoracic aorta is tortuous and ectatic in the aortic arch. Moderate degenerative changes are present in the thoracic spine. COPD ch anges are suggested. 1 cm nodular density is again suggested in the left lung base. IMPRESSION: 1. Mild bibasilar lung infiltrates and atelectasis with emphysematous bullous changes in the left hesham g base. 2. COPD changes. 3. Left lower lobe lung nodule is again suggested.
[2016-04-25 01:06] LABS: Appearance,Urine Clear (Clear); Bilirubin,Urine Negative (Negative); Glucose,Urine (UA) Negative (Negative); Ketones,Urine Negative (Negative); Leukocyte Esterase,Urine Negative (Negative); Nitrite,Urine Negative (Negative); Protein,Urine Negative (Negative); Specific Gravity,Urine 1.011 (1.001-1.035); UA Billing (MACRO vs. MICRO) CHEM; Urobilinogen,Urine <2.0 mg/dL (<2.0)
[2016-04-25] MEDS ORDERED: LEVOFLOXACIN 750 MG TAB PO STA (01:20)
[2016-04-25] MEDS ORDERED: ALBUTEROL NEBULIZED 2.5 MG/3 ML INHALATION STA (01:21)
[2016-04-25 01:37] VITALS: RESP 22
[2016-04-25 02:15] VITALS: BP 124/71; PULSE 89
== END 2016-04-25 02:11 | disposition home or self-care (01) ==
LOC: EC 23:11
DX: L03.116 Cellulitis of left lower limb (principal); L03.115 Cellulitis of right lower limb; J44.0 Chronic obstructive pulmonary disease with (acute) lower respiratory infection; J18.9 Pneumonia, unspecified organism; J45.909 Unspecified asthma, uncomplicated; I10 Essential (primary) hypertension; F41.8 Other specified anxiety disorders; M19.90 Unspecified osteoarthritis, unspecified site; E66.9 Obesity, unspecified; Z99.81 Dependence on supplemental oxygen; Z86.69 Personal history of other diseases of the nervous system and sense organs; Z86.79 Personal history of other diseases of the circulatory system; Z87.891 Personal history of nicotine dependence; Z79.899 Other long term (current) drug therapy; Z79.51 Long term (current) use of inhaled steroids
CPT/HCPCS: 99285 ×2; 36415; 94640; 93005; 85379; 83880; 80053; 82550; 82553; 84484; 85025; 85610; 85730; 81003; 71010; J7512

== ENCOUNTER 2016-06-10 07:13 | Emergency (ER) | payer MEDICARE, OTHER ==
[2016-06-10] MEDS ORDERED: IPRATROPIUM-ALBUTEROL 3 ML NEB INHALATION STA (07:27)
[2016-06-10] MEDS ORDERED: methylPREDNISolone SOD SUCCI 125 MG/2 ML VIAL IV STA (07:39)
--- NOTE | 2016-06-10 07:42 | ED ---
General Adult HPI - General Chief complaint: Shortness of Breath Stated complaint: Sob Time Seen by Provider: 06/10/16 07:28 Source: patient, RN notes reviewed Mode of arrival: EMS Limitations: no limitations - History of Present Illness Initial comments: Patient is a pleasant 61-year-old male presenting to the emergency department and shortness of breath. Onset of symptoms was a past couple of days. Not much coughing. No fever. No chest pain. Patient does have similar symptoms previously associated with COPD. Patient does have chronic bilateral lower extremity cellulitis. Patient states there is some mild swelling. No pain. No fevers. - Related Data Home Medications Medication Instructions Recorded Confirmed ARIPiprazole [Abilify] 2 mg PO DAILY 12/08/13 04/24/16 Albuterol Inhaler [Ventolin Hfa 2 puff INHALATION RT-QID PRN 12/08/13 04/24/16 Inhaler] Lisinopril [Zestril] 20 mg PO DAILY 12/08/13 04/24/16 Theophylline 24 Hour [Mark-24] 400 mg PO HS 12/08/13 04/24/16 Venlafaxine HCl ER [Effexor XR] 150 mg PO DAILY 12/08/13 04/24/16 Hydrochlorothiazide [Hydrodiuril] 50 mg PO DAILY 07/09/15 04/24/16 Allopurinol [Zyloprim] 300 mg PO DAILY 11/11/15 04/24/16 Diphenox-Atrop 2.5-0.025 mg 2 tab PO QID PRN 11/11/15 04/24/16 [Lomotil] Furosemide [Lasix] 40 mg PO DAILY 11/11/15 04/24/16 buPROPion HCL [Wellbutrin XL] 300 mg PO DAILY 11/11/15 04/24/16 clonazePAM [KlonoPIN] 0.5 mg PO QAM 12/09/15 04/24/16 clonazePAM [KlonoPIN] 2 mg PO HS 12/09/15 04/24/16 Ergocalciferol (Vitamin D2) 50,000 unit PO Q30D 01/12/16 04/24/16 [Drisdol] Butalbit/Acetamin/Caff/Codeine 1 cap PO Q6H PRN 03/24/16 04/24/16 [Fioricet-Cod 78-198-13-30 Cap] Budesonide/Formoterol Fumarate 2 puff INHALATION RT-BID 04/16/16 04/24/16 [Symbicort 160-4.5 Mcg Inhaler] traZODone HCL 300 mg PO HS 04/16/16 04/24/16 Previous Rx's Medication Instructions Recorded HYDROcodone/APAP 7.5-325MG [[place] 1 tab PO Q6HR PRN #30 tab 07/12/15 7.5-325] QUEtiapine [SEROquel] 100 mg PO HS tab 08/24/15 Doxazosin [Cardura] 1 mg PO DAILY tab 12/11/15 Ipratropium-Albuterol Nebulize 3 ml INHALATION RT-QID ampul.neb 12/11/15 [Duoneb 0.5 mg-3 mg/3 ml Soln] Levofloxacin [Levaquin] 750 mg PO DAILY #7 tab 04/25/16 predniSONE 60 mg PO DAILY #30 tab 04/25/16 methylPREDNISolone Dose Pack 24 mg PO DAILY #1 tab 06/10/16 [Medrol Dose Pack] Allergies Allergy/AdvReac Type Severity Reaction Status Date / Time No Known Allergies Allergy Verified 04/24/16 23:33 Review of Systems ROS Statement: Those systems with pertinent positive or pertinent negative responses have been documented in the HPI. ROS Other: All systems not noted in ROS Statement are negative. Constitutional: Denies: fever Eyes: Denies: eye pain ENT: Denies: ear pain Respiratory: Reports: dyspnea. Denies: cough Cardiovascular: Denies: chest pain, palpitations Endocrine: Denies: fatigue Gastrointestinal: Denies: abdominal pain Genitourinary: Denies: dysuria Musculoskeletal: Denies: back pain Skin: Reports: rash (Bilateral leg cellulitis) Neurological: Denies: weakness Past Medical History Past Medical History: Asthma, Chest Pain / Angina, COPD, Hypertension, Osteoarthritis (OA), Respiratory Disorder Additional Past Medical History / Comment(s): O2 AT HOME 5 LITERS N/C CONT, MIGRAINES, obesity, KODI LOWER LEG CELLULITIS. History of Any Multi-Drug Resistant Organisms: None Reported Past Surgical History: Appendectomy, Orthopedic Surgery Additional Past Surgical History / Comment(s): RT EYE SX, RT ANKLE BROKEN 1977 HAD ORIF PLATE/PINS Past Anesthesia/Blood Transfusion Reactions: No Reported Reaction Additional Past Anesthesia/Blood Transfusion Reaction / Comment(s): CLAUSTERPHOBIA Past Psychological History: Anxiety, Depression Additional Psychological History / Comment(s): PT CURRENTLY LIVING AT [facility]. USES WALKER/POWER CHAIR BUT STATED ONLY ABLE TO AMBULATE VERY SHORT DISTANCES AND GETS SOB WITH EXERTION. PT IS RETIRED FROM [employer]. Smoking Status: Former smoker Past Alcohol Use History: None Reported Additional Past Alcohol Use History / Comment(s): STARTED SMOKING AT AGE 11 SMOKED 2 PPD QUIT 2010, HAS'NT DRANK ETOH SINCE AGE 28(STATED WAS AN ALCOHOLIC FROM AGE [age]) Past Drug Use History: None Reported - Past Family History Father Family Medical History: Diabetes Mellitus Additional Family Medical History / Comment(s): IN 2004 COMPLICATIONS FROM DIABETES Mother Additional Family Medical History / Comment(s): AGE 56 OF FEMALE [place] General Exam Limitations: no limitations General appearance: alert, in no apparent distress Head exam: Present: atraumatic Eye exam: Present: normal appearance, PERRL ENT exam: Present: normal oropharynx Neck exam: Present: normal inspection Respiratory exam: Present: wheezes Cardiovascular Exam: Present: regular rate, normal rhythm GI/Abdominal exam: Present: soft. Absent: tenderness Extremities exam: Present: pedal edema (+1 bilateral). Absent: calf tenderness Neurological exam: Present: alert Psychiatric exam: Present: normal affect, normal mood Skin exam: Present: erythema (Bilateral lower extremity erythema which a patient states is chronic.) Course Vital Signs 06/10/16 06/10/16 06/10/16 07:15 07:31 07:39 Temperature 97.3 F L Pulse Rate 93 90 88 Respiratory 24 Rate Blood Pressure 122/68 O2 Sat by Pulse 94 L Oximetry 06/10/16 06/10/16 08:26 08:29 Temperature 97.3 F L Pulse Rate 88 Respiratory 18 22 Rate Blood Pressure 130/61 O2 Sat by Pulse 94 L Oximetry EKG Findings - EKG Comments: EKG Findings:: Normal sinus rhythm at 89. Normal intervals. Normal axis. Normal QRS. Normal ST-T. Medical Decision Making - Medical Decision Making Patient reexamined and improved. Patient states he does use lotion for his legs. Patient states he is comfortable with his breathing and requests discharge home. - Lab Data Result diagrams: 06/10/16 07:45 06/10/16 07:45 Lab Results 06/10/16 06/10/16 06/10/16 Range/Units 07:45 07:45 07:45 WBC 12.0 H (3.8-10.6) k/uL RBC 4.82 (4.30-5.90) m/uL Hgb 14.3 (13.0-17.5) gm/dL Hct 44.9 (39.0-53.0) % MCV 93.2 (80.0-100.0) fL MCH 29.8 (25.0-35.0) pg MCHC 31.9 (31.0-37.0) g/dL RDW 14.3 (11.5-15.5) % Plt Count 298 (150-450) k/uL Neutrophils % 76 % Lymphocytes % 8 % Monocytes % 8 % Eosinophils % 4 % Basophils % 1 % Neutrophils # 9.1 H (1.3-7.7) k/uL Lymphocytes # 1.0 (1.0-4.8) k/uL Monocytes # 0.9 (0-1.0) k/uL Eosinophils # 0.5 (0-0.7) k/uL Basophils # 0.1 (0-0.2) k/uL PT (9.0-12.0) sec INR (<1.1) APTT (22.0-30.0) sec Sodium 139 (137-145) mmol/L Potassium 4.5 (3.5-5.1) mmol/L Chloride 100 (98-107) mmol/L Carbon Dioxide 29 (22-30) mmol/L Anion Gap 10 mmol/L BUN 11 (9-20) mg/dL Creatinine 0.82 (0.66-1.25) mg/dL Est GFR (MDRD) Af Amer >60 (>60 ml/min/1.73 sqM) Est GFR (MDRD) Non-Af >60 (>60 ml/min/1.73 sqM) Glucose 106 H (74-99) mg/dL Plasma Lactic Acid [place] (0.7-2.0) mmol/L Calcium 8.9 (8.4-10.2) mg/dL Magnesium 2.0 (1.6-2.3) mg/dL Total Bilirubin 0.4 (0.2-1.3) mg/dL AST 23 (17-59) U/L ALT 32 (21-72) U/L Alkaline Phosphatase 109 (38-126) U/L Total Creatine Kinase 49 L (55-170) U/L CK-MB (CK-2) 1.0 (0.0-2.4) ng/mL CK-MB (CK-2) Rel Index 2.0 Troponin I <0.012 (0.000-0.034) ng/mL NT-Pro-B Natriuret Pep pg/mL Total Protein 6.2 L (6.3-8.2) g/dL Albumin 3.6 (3.5-5.0) g/dL 06/10/16 06/10/16 06/10/16 Range/Units 07:45 07:45 07:45 WBC (3.8-10.6) k/uL RBC (4.30-5.90) m/uL Hgb (13.0-17.5) gm/dL Hct (39.0-53.0) % MCV (80.0-100.0) fL MCH (25.0-35.0) pg MCHC (31.0-37.0) g/dL RDW (11.5-15.5) % Plt Count (150-450) k/uL Neutrophils % % Lymphocytes % % Monocytes % % Eosinophils % % Basophils % % Neutrophils # (1.3-7.7) k/uL Lymphocytes # (1.0-4.8) k/uL Monocytes # (0-1.0) k/uL Eosinophils # (0-0.7) k/uL Basophils # (0-0.2) k/uL PT 9.7 (9.0-12.0) sec INR 0.9 (<1.1) APTT 24.6 (22.0-30.0) sec Sodium (137-145) mmol/L Potassium (3.5-5.1) mmol/L Chloride (98-107) mmol/L Carbon Dioxide (22-30) mmol/L Anion Gap mmol/L BUN (9-20) mg/dL Creatinine (0.66-1.25) mg/dL Est GFR (MDRD) Af Amer (>60 ml/min/1.73 sqM) Est GFR (MDRD) Non-Af (>60 ml/min/1.73 sqM) Glucose (74-99) mg/dL Plasma Lactic Acid [place] 1.1 (0.7-2.0) mmol/L Calcium (8.4-10.2) mg/dL Magnesium (1.6-2.3) mg/dL Total Bilirubin (0.2-1.3) mg/dL AST (17-59) U/L ALT (21-72) U/L Alkaline Phosphatase (38-126) U/L Total Creatine Kinase (55-170) U/L CK-MB (CK-2) (0.0-2.4) ng/mL CK-MB (CK-2) Rel Index Troponin I (0.000-0.034) ng/mL NT-Pro-B Natriuret Pep 251 pg/mL Total Protein (6.3-8.2) g/dL Albumin (3.5-5.0) g/dL - Radiology Data Radiology results: image reviewed (Chest x-ray shows advanced chronic emphysematous and fibrotic changes. No significant change from prior.) Disposition Clinical Impression: Acute exacerbation of COPD with asthma Disposition: HOME SELF-CARE Condition: Stable Instructions: COPD (Chronic Obstructive Pulmonary Disease) (ED) Additional Instructions: Please follow-up with your doctor this week. Return for difficulty in breathing , fevers, weakness, worsening symptoms or other concerns. Prescriptions: methylPREDNISolone Dose Pack [Medrol Dose Pack] 24 mg PO DAILY #1 tab Referrals: Emilie Webb DO [Primary Care Provider] - 1-2 days
--- NOTE | 2016-06-10 08:18 | XR ---
EXAMINATION TYPE: XR chest 2V DATE OF EXAM: 06/10/2016 8:12 AM COMPARISON: Chest x-ray from April 25, 2016. CTA chest January 12, 2016. HISTORY: History of COPD and asthma presents with difficulty in breathing. TECHNIQUE: Frontal and lateral views of the chest are obtained. FINDINGS: Cardiac silhouette size is stable and upper limits of normal. 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 There is right apical and left basilar scarring redemonstrat ed. Blunting of posterior costophrenic angles is consistent with some chronic pleural thickening. No new suspicious focal airspace opacity or pneumothorax is clearly seen bilaterally. Osseous structures are intact. IMPRESSION: Advanced chronic emphysematous and fibrotic change without suspicious acute infiltrate. No significant change from prior studies.
[2016-06-10 08:37] LABS: ALT 32 U/L (21-72); AST 23 U/L (17-59); Alkaline Phosphatase 109 U/L (38-126); Anion Gap 10 mmol/L; Blood Urea Nitrogen 11 mg/dL (9-20); Calcium 8.9 mg/dL (8.4-10.2); Carbon Dioxide 29 mmol/L (22-30); Chloride 100 mmol/L (98-107); Glucose 106 mg/dL (74-99); Non-African American GFR(MDRD) >60 (>60 ml/min/1.73 sqM); Potassium 4.5 mmol/L (3.5-5.1); Sodium 139 mmol/L (137-145); Total Bilirubin 0.4 mg/dL (0.2-1.3); Total Protein 6.2 g/dL (6.3-8.2)
[2016-06-10 08:44] LABS: INR 0.9 (<1.1); Partial Thromboplastin Time 24.6 sec (22.0-30.0); Prothrombin Time 9.7 sec (9.0-12.0)
[2016-06-10 08:55] LABS: Basophils # (A) 0.1 k/uL (0-0.2); Basophils % (A) 1 %; CH 30.1; CHCM 32.4; Eosinophils # (A) 0.5 k/uL (0-0.7); Eosinophils % (A) 4 %; HCT 44.9 % (39.0-53.0); HDW 2.49; HGB 14.3 gm/dL (13.0-17.5); Luc # (Auto) 0.47; Luc % (Auto) 4; Lymphocytes % (A) 8 %; MCH 29.8 pg (25.0-35.0); MCHC 31.9 g/dL (31.0-37.0); MCV 93.2 fL (80.0-100.0); Mean Platelet Volume 7.7; Monocytes # (A) 0.9 k/uL (0-1.0); Monocytes % (A) 8 %; Neutrophils # (A) 9.1 k/uL (1.3-7.7); Neutrophils % (A) 76 %; RBC 4.82 m/uL (4.30-5.90); RDW 14.3 % (11.5-15.5); WBC (Perox) 12.47
[2016-06-10 09:01] LABS: Creatine Kinase 49 U/L (55-170)
[2016-06-10 09:15] LABS: Troponin I <0.012 ng/mL (0.000-0.034)
[2016-06-10 09:38] VITALS: RESP 20
[2016-06-10 10:05] VITALS: BP 121/79; PULSE 83; TEMP 97.4
== END 2016-06-10 10:45 | disposition home or self-care (01) ==
LOC: EC 07:13
DX: J44.1 Chronic obstructive pulmonary disease with (acute) exacerbation (principal); J45.909 Unspecified asthma, uncomplicated; R60.0 Localized edema; I10 Essential (primary) hypertension; M19.90 Unspecified osteoarthritis, unspecified site; E66.9 Obesity, unspecified; Z68.42 Body mass index [BMI] 45.0-49.9, adult; F41.9 Anxiety disorder, unspecified; F32.9 Major depressive disorder, single episode, unspecified; Z87.891 Personal history of nicotine dependence; Z79.51 Long term (current) use of inhaled steroids; Z79.899 Other long term (current) drug therapy; Z86.19 Personal history of other infectious and parasitic diseases; Z98.890 Other specified postprocedural states; Z99.81 Dependence on supplemental oxygen
CPT/HCPCS: 36415; 94640; 93005; 83880; 80053; 82550; 82553; 83605; 83735; 84484; 85025; 85610; 85730; 87040; 71020; 99285; 96374; J2930

== ENCOUNTER 2016-06-12 19:34 | Inpatient (IN) | payer MEDICARE, OTHER ==
[2016-06-12] MEDS ORDERED: methylPREDNISolone SOD SUCCI 125 MG/2 ML VIAL IV STA (20:26)
[2016-06-12] MEDS ORDERED: IPRATROPIUM 0.5 MG/2.5 ML NEBU INHALATION STA (20:26)
[2016-06-12] MEDS ORDERED: FUROSEMIDE 10 MG/ML 4 ML VIAL IV STA (20:26)
[2016-06-12] MEDS ORDERED: ALBUTEROL NEBULIZED 2.5 MG/3 ML INHALATION STA (20:26)
[2016-06-12] MEDS ORDERED: SODIUM CHLORIDE 0.9% 1,000 ML IV STA (20:26)
--- NOTE | 2016-06-12 20:41 | ED ---
SOB HPI - General Chief Complaint: Shortness of Breath Stated Complaint: anxiety,SOB Time Seen by Provider: 06/12/16 20:02 Source: patient Mode of arrival: ambulatory Limitations: no limitations - History of Present Illness Initial Comments: c/o about shortness of breath him a he has a long-standing history of COPD also complaining about down chest pain he feels like pain as versus pressure on the left chest denies any nausea or vomiting or cold sweats chest pain gets worse with deep breaths. Denies any fever no chills he isn't quite oxygen dependent fever oxygen at home 24 hours a day. Denies any headache no neck neck stiffness does have a chest pain and shortness of breath denies any abdominal pain frequency urgency dysuria complaining about redness affecting the both legs he has a history of cellulitis and he thinks it is cellulitis is back, is requesting to be In the hospital tonight because of breathing and the leg cellulitis - Related Data Home Medications Medication Instructions Recorded Confirmed ARIPiprazole [Abilify] 2 mg PO DAILY 12/08/13 06/12/16 Albuterol Inhaler [Ventolin Hfa 2 puff INHALATION RT-QID 12/08/13 06/12/16 Inhaler] Lisinopril [Zestril] 20 mg PO DAILY 12/08/13 06/12/16 Theophylline 24 Hour [Mark-24] 400 mg PO HS 12/08/13 06/12/16 Venlafaxine HCl ER [Effexor XR] 150 mg PO DAILY 12/08/13 06/12/16 Hydrochlorothiazide [Hydrodiuril] 50 mg PO DAILY 07/09/15 06/12/16 Allopurinol [Zyloprim] 300 mg PO DAILY 11/11/15 06/12/16 Diphenox-Atrop 2.5-0.025 mg 2 tab PO QID PRN 11/11/15 06/12/16 [Lomotil] Furosemide [Lasix] 40 mg PO DAILY 11/11/15 06/12/16 buPROPion HCL [Wellbutrin XL] 300 mg PO DAILY 11/11/15 06/12/16 clonazePAM [KlonoPIN] 0.5 mg PO QAM 12/09/15 06/12/16 clonazePAM [KlonoPIN] 2 mg PO HS 12/09/15 06/12/16 Ergocalciferol (Vitamin D2) 50,000 unit PO Q30D 01/12/16 06/12/16 [Drisdol] Butalbit/Acetamin/Caff/Codeine 1 cap PO Q6H PRN 03/24/16 06/12/16 [Fioricet-Cod 29-829-51-30 Cap] Hydrocortisone Cream 1 applic TOPICAL QID 06/12/16 06/12/16 [Hydrocortisone 2.5% Cream] Triamcinolone 0.1% Cream [Kenalog] 1 applicatio TOPICAL BID 06/12/16 06/12/16 methylPREDNISolone Dose Pack See Taper PO DAILY 06/12/16 06/12/16 [Medrol Dose Pack] metroNIDAZOLE 0.75% CREAM 1 applic TOPICAL BID 06/12/16 06/12/16 traZODone HCL 300 mg PO HS 06/12/16 06/12/16 Previous Rx's Medication Instructions Recorded HYDROcodone/APAP 7.5-325MG [[place] 1 tab PO Q6HR PRN #30 tab 07/12/15 7.5-325] QUEtiapine [SEROquel] 100 mg PO HS tab 08/24/15 Doxazosin [Cardura] 1 mg PO DAILY tab 12/11/15 Allergies Allergy/AdvReac Type Severity Reaction Status Date / Time No Known Allergies Allergy Verified 06/12/16 20:00 Review of Systems ROS Statement: Those systems with pertinent positive or pertinent negative responses have been documented in the HPI. ROS Other: All systems not noted in ROS Statement are negative. Past Medical History Past Medical History: Asthma, Chest Pain / Angina, COPD, Hypertension, Osteoarthritis (OA), Respiratory Disorder Additional Past Medical History / Comment(s): O2 AT HOME 5 LITERS N/C CONT, MIGRAINES, obesity, KODI LOWER LEG CELLULITIS. History of Any Multi-Drug Resistant Organisms: None Reported Past Surgical History: Appendectomy, Orthopedic Surgery Additional Past Surgical History / Comment(s): RT EYE SX, RT ANKLE BROKEN 1977 HAD ORIF PLATE/PINS Past Anesthesia/Blood Transfusion Reactions: No Reported Reaction Additional Past Anesthesia/Blood Transfusion Reaction / Comment(s): CLAUSTERPHOBIA Past Psychological History: Anxiety, Depression Additional Psychological History / Comment(s): PT CURRENTLY LIVING AT [facility]. USES WALKER/POWER CHAIR BUT STATED ONLY ABLE TO AMBULATE VERY SHORT DISTANCES AND GETS SOB WITH EXERTION. PT IS RETIRED FROM [employer]. Smoking Status: Former smoker Past Alcohol Use History: None Reported Additional Past Alcohol Use History / Comment(s): STARTED SMOKING AT AGE 11 SMOKED 2 PPD QUIT 2010, HAS'NT DRANK ETOH SINCE AGE 28(STATED WAS AN ALCOHOLIC FROM AGE [age]) Past Drug Use History: None Reported - Past Family History Father Family Medical History: Diabetes Mellitus Additional Family Medical History / Comment(s): IN 2004 COMPLICATIONS FROM DIABETES Mother Additional Family Medical History / Comment(s): AGE 56 OF FEMALE [place] General Exam - General Exam Comments Initial Comments: General: The patient is awake and alert, in mild distress and he is anxious as well Skin: Skin is warm and dry and no rashes or lesions are noted. Eye: Pupils are equal, round and reactive to light, extra-ocular movements are intact; there is normal conjunctiva bilaterally. Ears, nose, mouth and throat: There are moist mucous membranes and no oral lesions. Neck: The neck is supple, there is no tenderness Cardiovascular: There is a regular rate and rhythm. No murmur, rub or gallop is appreciated. Respiratory: To auscultation bilateral, family is consistent with a moderate to severe COPD, poor air exchange bilaterally Gastrointestinal: Soft, non-distended, non-tender abdomen without masses or organomegaly noted. There is no rebound or guarding present. Bowel sounds are unremarkable. Back: There is no tenderness to palpation in the midline. There is no obvious deformity. Musculoskeletal: Noticed +2 edema bilaterally, cellulitis to the distal two third of the legs below the knee Neurological: CN II-XII intact, Cranial nerves III through XII are intact. There are no obvious motor or sensory deficits. Coordination appears grossly intact. Speech is normal. Psychiatric: Cooperative, appropriate mood & affect, normal judgment. Limitations: no limitations Course Vital Signs 06/12/16 06/12/16 06/12/16 19:56 21:16 21:47 Temperature 98.2 F Pulse Rate 102 H 91 116 H Respiratory 26 H Rate Blood Pressure 129/87 O2 Sat by Pulse 94 L Oximetry KG is a sinus tachycardia with ventricular rate of 103 NV interval is 170 QRS duration is 74 QT/QTc is 362/474, degree of this EKG showed some artifacts in leads 3 and aVF do not see any ST elevation or ST depression noticed some artifacts in lead V1 as well - Reevaluation(s) Reevaluation #1: 06/12/16 23:05 Patient was reassessed at 2300, his CT chest pain GI O is negative, I venous Doppler of bilateral is negative, his CBC is 16 d-dimer is elevated elevated venous blood gases or normal-sized the troponin. I informed him that I have admitted him for acute exacerbation of COPD and her leg cellulitis as well as pedal edema, he is happy with the Medical Decision Making - Lab Data Result diagrams: 06/12/16 20:06 06/12/16 20:06 Lab Results 06/12/16 06/12/16 06/12/16 Range/Units 20:06 20:06 20:06 WBC 15.9 H (3.8-10.6) k/uL RBC 4.93 (4.30-5.90) m/uL Hgb 14.7 (13.0-17.5) gm/dL Hct 46.4 (39.0-53.0) % MCV 94.2 (80.0-100.0) fL MCH 29.8 (25.0-35.0) pg MCHC 31.7 (31.0-37.0) g/dL RDW 14.6 (11.5-15.5) % Plt Count 319 (150-450) k/uL Neutrophils % 79 % Lymphocytes % 7 % Monocytes % 7 % Eosinophils % 3 % Basophils % 1 % Neutrophils # 12.5 H (1.3-7.7) k/uL Lymphocytes # 1.1 (1.0-4.8) k/uL Monocytes # 1.1 H (0-1.0) k/uL Eosinophils # 0.5 (0-0.7) k/uL Basophils # 0.1 (0-0.2) k/uL PT (9.0-12.0) sec INR (<1.1) APTT (22.0-30.0) sec D-Dimer (<0.60) mg/L FEU VBG pH (7.31-7.41) VBG pCO2 (37-51) mmHg VBG HCO3 (24-28) mmol/L Sodium 138 (137-145) mmol/L Potassium 4.7 (3.5-5.1) mmol/L Chloride 101 (98-107) mmol/L Carbon Dioxide 29 (22-30) mmol/L Anion Gap 8 mmol/L BUN 17 (9-20) mg/dL Creatinine 0.90 (0.66-1.25) mg/dL Est GFR (MDRD) Af Amer >60 (>60 ml/min/1.73 sqM) Est GFR (MDRD) Non-Af >60 (>60 ml/min/1.73 sqM) Glucose 81 (74-99) mg/dL Plasma Lactic Acid [place] (0.7-2.0) mmol/L Calcium 8.9 (8.4-10.2) mg/dL Total Bilirubin 0.3 (0.2-1.3) mg/dL AST 24 (17-59) U/L ALT 42 (21-72) U/L Alkaline Phosphatase 90 (38-126) U/L Total Creatine Kinase 44 L (55-170) U/L CK-MB (CK-2) 1.2 (0.0-2.4) ng/mL CK-MB (CK-2) Rel Index 2.7 Troponin I <0.012 (0.000-0.034) ng/mL NT-Pro-B Natriuret Pep pg/mL Total Protein 6.1 L (6.3-8.2) g/dL Albumin 3.6 (3.5-5.0) g/dL 06/12/16 06/12/16 06/12/16 Range/Units 20:06 20:06 20:06 WBC (3.8-10.6) k/uL RBC (4.30-5.90) m/uL Hgb (13.0-17.5) gm/dL Hct (39.0-53.0) % MCV (80.0-100.0) fL MCH (25.0-35.0) pg MCHC (31.0-37.0) g/dL RDW (11.5-15.5) % Plt Count (150-450) k/uL Neutrophils % % Lymphocytes % % Monocytes % % Eosinophils % % Basophils % % Neutrophils # (1.3-7.7) k/uL Lymphocytes # (1.0-4.8) k/uL Monocytes # (0-1.0) k/uL Eosinophils # (0-0.7) k/uL Basophils # (0-0.2) k/uL PT 10.2 (9.0-12.0) sec INR 1.0 (<1.1) APTT 24.9 (22.0-30.0) sec D-Dimer 0.91 H (<0.60) mg/L FEU VBG pH (7.31-7.41) VBG pCO2 (37-51) mmHg VBG HCO3 (24-28) mmol/L Sodium (137-145) mmol/L Potassium (3.5-5.1) mmol/L Chloride (98-107) mmol/L Carbon Dioxide (22-30) mmol/L Anion Gap mmol/L BUN (9-20) mg/dL Creatinine (0.66-1.25) mg/dL Est GFR (MDRD) Af Amer (>60 ml/min/1.73 sqM) Est GFR (MDRD) Non-Af (>60 ml/min/1.73 sqM) Glucose (74-99) mg/dL Plasma Lactic Acid [place] 1.0 (0.7-2.0) mmol/L Calcium (8.4-10.2) mg/dL Total Bilirubin (0.2-1.3) mg/dL AST (17-59) U/L ALT (21-72) U/L Alkaline Phosphatase (38-126) U/L Total Creatine Kinase (55-170) U/L CK-MB (CK-2) (0.0-2.4) ng/mL CK-MB (CK-2) Rel Index Troponin I (0.000-0.034) ng/mL NT-Pro-B Natriuret Pep 193 pg/mL Total Protein (6.3-8.2) g/dL Albumin (3.5-5.0) g/dL 06/12/16 Range/Units 20:51 WBC (3.8-10.6) k/uL RBC (4.30-5.90) m/uL Hgb (13.0-17.5) gm/dL Hct (39.0-53.0) % MCV (80.0-100.0) fL MCH (25.0-35.0) pg MCHC (31.0-37.0) g/dL RDW (11.5-15.5) % Plt Count (150-450) k/uL Neutrophils % % Lymphocytes % % Monocytes % % Eosinophils % % Basophils % % Neutrophils # (1.3-7.7) k/uL Lymphocytes # (1.0-4.8) k/uL Monocytes # (0-1.0) k/uL Eosinophils # (0-0.7) k/uL Basophils # (0-0.2) k/uL PT (9.0-12.0) sec INR (<1.1) APTT (22.0-30.0) sec D-Dimer (<0.60) mg/L FEU VBG pH 7.40 (7.31-7.41) VBG pCO2 50 (37-51) mmHg VBG HCO3 30 H (24-28) mmol/L Sodium (137-145) mmol/L Potassium (3.5-5.1) mmol/L Chloride (98-107) mmol/L Carbon Dioxide (22-30) mmol/L Anion Gap mmol/L BUN (9-20) mg/dL Creatinine (0.66-1.25) mg/dL Est GFR (MDRD) Af Amer (>60 ml/min/1.73 sqM) Est GFR (MDRD) Non-Af (>60 ml/min/1.73 sqM) Glucose (74-99) mg/dL Plasma Lactic Acid [place] (0.7-2.0) mmol/L Calcium (8.4-10.2) mg/dL Total Bilirubin (0.2-1.3) mg/dL AST (17-59) U/L ALT (21-72) U/L Alkaline Phosphatase (38-126) U/L Total Creatine Kinase (55-170) U/L CK-MB (CK-2) (0.0-2.4) ng/mL CK-MB (CK-2) Rel Index Troponin I (0.000-0.034) ng/mL NT-Pro-B Natriuret Pep pg/mL Total Protein (6.3-8.2) g/dL Albumin (3.5-5.0) g/dL Disposition Clinical Impression: Tachypnea, Tachycardia, Acute bronchitis with chronic obstructive pulmonary disease (COPD), Cellulitis, leg Clinical Impression: (Ruled Out): Acute exacerbation of COPD with asthma Disposition: ADMITTED IP TO THIS HOSP Condition: Good Referrals: Emilie Webb DO [Primary Care Provider] - 1-2 days
[2016-06-12 20:53] LABS: Basophils # (A) 0.1 k/uL (0-0.2); Basophils % (A) 1 %; CH 30.2; CHCM 32.2; Eosinophils # (A) 0.5 k/uL (0-0.7); Eosinophils % (A) 3 %; HCT 46.4 % (39.0-53.0); HDW 2.48; HGB 14.7 gm/dL (13.0-17.5); Luc # (Auto) 0.65; Luc % (Auto) 4; Lymphocytes # (A) 1.1 k/uL (1.0-4.8); Lymphocytes % (A) 7 %; MCH 29.8 pg (25.0-35.0); MCHC 31.7 g/dL (31.0-37.0); MCV 94.2 fL (80.0-100.0); Mean Platelet Volume 8.2; Monocytes # (A) 1.1 k/uL (0-1.0); Monocytes % (A) 7 %; Neutrophils # (A) 12.5 k/uL (1.3-7.7); Neutrophils % (A) 79 %; RBC 4.93 m/uL (4.30-5.90); RDW 14.6 % (11.5-15.5); WBC 15.9 k/uL (3.8-10.6); WBC (Perox) 15.07
[2016-06-12 21:05] LABS: Partial Thromboplastin Time 24.9 sec (22.0-30.0); Prothrombin Time 10.2 sec (9.0-12.0)
[2016-06-12 21:09] LABS: VBG PH 7.4 (7.31-7.41)
[2016-06-12 21:12] LABS: Creatine Kinase 44 U/L (55-170)
[2016-06-12 21:14] LABS: ALT 42 U/L (21-72); AST 24 U/L (17-59); Alkaline Phosphatase 90 U/L (38-126); Anion Gap 8 mmol/L; Blood Urea Nitrogen 17 mg/dL (9-20); Calcium 8.9 mg/dL (8.4-10.2); Carbon Dioxide 29 mmol/L (22-30); Chloride 101 mmol/L (98-107); Glucose 81 mg/dL (74-99); Non-African American GFR(MDRD) >60 (>60 ml/min/1.73 sqM); Potassium 4.7 mmol/L (3.5-5.1); Sodium 138 mmol/L (137-145); Total Bilirubin 0.3 mg/dL (0.2-1.3); Total Protein 6.1 g/dL (6.3-8.2)
--- NOTE | 2016-06-12 21:22 | XR ---
EXAMINATION TYPE: XR chest 2V DATE OF EXAM: 06/12/2016 9:10 PM COMPARISON: 06/10/2016 HISTORY: Difficulty breathing TECHNIQUE: Frontal and lateral views of the chest are obtained. FINDINGS: There is mild coarsening of interstitial markings. There is no heart failure. Heart size i s normal. There are no hilar masses. There are chest leads. There is some flattening of the diaphragm . IMPRESSION: Fibrotic changes in the mid and lower lung marie. No acute lung disease. Normal heart. No change compared to old exam. COPD.
[2016-06-12 21:26] LABS: Creatine Kinase MB 1.2 ng/mL (0.0-2.4); Troponin I <0.012 ng/mL (0.000-0.034)
[2016-06-12] MEDS ORDERED: RX INFO: IV CONTRAST WAS GIVEN 1 EACH MISC MISCELLANE PRN (21:41)
[2016-06-12] MEDS ORDERED: DIPHENOX-ATROP 2.5-0.025 MG 1 EACH TAB PO PRN (22:36)
[2016-06-12] MEDS ORDERED: BUTA/APAP/CAF/COD 50-325-40-30 CAP PO PRN (22:36)
--- NOTE | 2016-06-12 22:38 | CT ---
EXAMINATION TYPE: CT angio chest DATE OF EXAM: 06/12/2016 10:25 PM COMPARISON: 01/12/2016 HISTORY: Pt states of SOB and anxiety today. Hx of COPD. CT DLP: 989.9 mGycm Automated exposure control for dose reduction was used. CONTRAST: CTA scan of the thorax is performed with IV Contrast, patient injected with 80 mL of Omnipaque 350, p ulmonary embolism protocol. . FINDINGS: There are 3-D post processed images. There is diffuse bullous emphysema. There are large bullae in nan th lungs throughout. Heart size is normal. There is no evidence of aortic aneurysm or dissection. I s ee no filling defects in the pulmonary arteries. There is no mediastinal adenopathy. There are no hil ar masses. There is no pleural effusion. The bony thorax appears intact. IMPRESSION: BULLOUS EMPHYSEMA. NO EVIDENCE OF PULMONARY EMBOLISM. THERE IS CLEARING OF THE PLEURAL THICKENING IN THE RIGHT LUNG COMPARED TO OLD EXAM.
--- NOTE | 2016-06-12 23:04 | US ---
EXAMINATION TYPE: US venous doppler duplex LE BI DATE OF EXAM: 06/12/2016 10:39 PM COMPARISON: Prior in PACS CLINICAL HISTORY: Bilateral leg pain and swelling, SOB. SIDE PERFORMED: Bilateral VESSELS IMAGED: External Iliac Vein (EIV) Common Femoral Vein Deep Femoral Vein Greater Saphenous Vein * Femoral Vein Popliteal Vein Small Saphenous Vein * Proximal Calf Veins (* superficial vessels) TECHNOLOGIST IMPRESSION: Right Leg: Negative for DVT Left Leg: Negative for DVT IMPRESSION: Normal exam. No evidence of deep venous thrombosis in both legs.
[2016-06-12] MEDS ORDERED: traZODone HCL 50 MG TAB PO STA (23:50)
[2016-06-12] MEDS ORDERED: clonazePAM 1 MG TAB PO STA (23:50)
[2016-06-12] MEDS ORDERED: THEOPHYLLINE 24 HOUR 300 MG CAP.ER.24H PO STA (23:50)
[2016-06-12] MEDS ORDERED: QUEtiapine 100 MG TAB PO STA (23:50)
[2016-06-13] MEDS ORDERED: traZODone HCL 100 MG TAB PO STA (00:13)
[2016-06-13] MEDS: AMPICILLIN-SULBACTAM 3 GM in SODIUM CHLORIDE 0.9% 100 ML IVPB SCH ×3 (00:40→16:04)
[2016-06-13] MEDS: methylPREDNISolone SOD SUCCI 125 MG/2 ML VIAL IV SCH ×4 (03:10→17:51)
[2016-06-13] MEDS: ALBUTEROL NEBULIZED 2.5 MG/3 ML INHALATION SCH ×4 (07:32→19:38)
[2016-06-13] MEDS: BUDESONIDE 0.5 MG/2 ML NEBU INHALATION SCH ×2 (07:32→19:35)
[2016-06-13 07:45] VITALS: BMI 49.7
[2016-06-13] MEDS: VENLAFAXINE HCL ER 150 MG CAP PO SCH (08:23)
[2016-06-13] MEDS: ARIPiprazole 2 MG TAB PO SCH (08:23)
[2016-06-13] MEDS: ALLOPURINOL 300 MG TAB PO SCH (08:23)
[2016-06-13] MEDS: clonazePAM 0.5 MG TAB PO SCH (08:24)
[2016-06-13] MEDS: HYDROCHLOROTHIAZIDE 50 MG TAB PO SCH (08:25)
[2016-06-13] MEDS: FUROSEMIDE 40 MG TAB PO SCH (08:25)
[2016-06-13] MEDS: buPROPion XL 300 MG TAB.ER.24H PO SCH (08:25)
[2016-06-13] MEDS: LISINOPRIL 20 MG TAB PO SCH (08:27)
[2016-06-13] MEDS: HYDROcodone/APAP 7.5-325MG 1 EACH TAB PO PRN ×3 (08:27→22:14)
[2016-06-13] MEDS ORDERED: HYDROCORTISONE 1% CREAM 30 GM TUBE TOPICAL SCH (09:00)
[2016-06-13] MEDS ORDERED: ERGOCALCIFEROL 50,000 UNIT CAP PO SCH (09:00)
[2016-06-13] MEDS: DOXAZOSIN 1 MG TAB PO SCH (09:07)
[2016-06-13] MEDS: HYDROCORTISONE 1% CREAM 454 GM JAR TOPICAL SCH ×3 (13:20→21:49)
--- NOTE | 2016-06-13 13:53 | HP ---
DATE OF ADMISSION: CHIEF COMPLAINT: Cellulitis lower extremities and difficulty breathing. HISTORY OF PRESENT ILLNESS: This is another admission for this 61-year-old white male who was in the hospital with exacerbation of COPD and he also has frequent and recurrent episodes of cellulitis of both lower extremities. Both problems were bothering him and he came to the emergency room and was admitted. REVIEW OF SYSTEMS: He has had no focal neurologic deficits, headaches, etc. He has had no hemoptysis. He has had no abdominal pain, vomiting, diarrhea, melena, etc. Past medical history, family history, and personal and social histories are all otherwise unremarkable and noncontributory or unchanged. PHYSICAL EXAMINATION: GENERAL: He appeared to be disheveled. Head, ears, eyes, nose, mouth, and throat were normal except for strabismus. Vital signs were normal. Chest demonstrated increased AP diameter with poor breath sounds. There is occasional rales and rhonchi. There was wheezing on expiration. Cardiac exam demonstrated sinus tachycardia. ABDOMEN: Soft and nontender. Extremities demonstrated cellulitis in both lower legs. Neurologically, he is intact. He is admitted to the hospital with diagnoses: 1. Exacerbation of chronic obstructive pulmonary disease. 2. Cellulitis of both lower extremities. PLAN: 1. Updrafts. 2. Antibiotics.
--- NOTE | 2016-06-13 13:57 | PN ---
DATE OF SERVICE: 06/13/2016 CHIEF COMPLAINT: Exacerbation of COPD and cellulitis of the legs. HISTORY OF PRESENT ILLNESS: This gentleman is doing a little better, but the legs are still bothering him quite a bit. He has been quite agitated and difficult for the nurses to work with. On exam, chest demonstrates very poor breath sounds. Cardiac exam is normal. EXTREMITIES: Unchanged and there is still marked cellulitis of the lower legs. IMPRESSION: 1. Exacerbation of chronic obstructive pulmonary disease. 2. Personality disorder. 3. Cellulitis of the lower extremities. PLAN: No change in program, but continue with updrafts and antibiotics.
[2016-06-13] MEDS: clonazePAM 1 MG TAB PO SCH (20:24)
[2016-06-13] MEDS: QUEtiapine 100 MG TAB PO SCH (20:25)
[2016-06-13] MEDS: THEOPHYLLINE 24 HOUR 400 MG CAP.ER.24H PO SCH (20:26)
[2016-06-13] MEDS: traZODone HCL 100 MG TAB PO SCH (20:26)
[2016-06-14] MEDS: methylPREDNISolone SOD SUCCI 125 MG/2 ML VIAL IV SCH ×4 (04:37→17:45)
[2016-06-14] MEDS: AMPICILLIN-SULBACTAM 3 GM in SODIUM CHLORIDE 0.9% 100 ML IVPB SCH ×3 (04:37→15:34)
[2016-06-14] MEDS: BUDESONIDE 0.5 MG/2 ML NEBU INHALATION SCH ×2 (07:07→20:34)
[2016-06-14] MEDS: IPRATROPIUM-ALBUTEROL 3 ML NEB INHALATION PRN ×2 (07:07→15:54)
[2016-06-14] MEDS: ALBUTEROL NEBULIZED 2.5 MG/3 ML INHALATION SCH ×4 (07:13→20:34)
[2016-06-14] MEDS: HYDROcodone/APAP 7.5-325MG 1 EACH TAB PO PRN ×3 (07:35→22:15)
[2016-06-14] MEDS: ALLOPURINOL 300 MG TAB PO SCH (07:38)
[2016-06-14] MEDS: HYDROCHLOROTHIAZIDE 50 MG TAB PO SCH (07:38)
[2016-06-14] MEDS: FUROSEMIDE 40 MG TAB PO SCH (07:39)
[2016-06-14] MEDS: DOXAZOSIN 1 MG TAB PO SCH (07:39)
[2016-06-14] MEDS: LISINOPRIL 20 MG TAB PO SCH (07:39)
[2016-06-14] MEDS: VENLAFAXINE HCL ER 150 MG CAP PO SCH (07:40)
[2016-06-14] MEDS: ARIPiprazole 2 MG TAB PO SCH (07:40)
[2016-06-14] MEDS: buPROPion XL 300 MG TAB.ER.24H PO SCH (07:41)
[2016-06-14] MEDS: clonazePAM 0.5 MG TAB PO SCH (07:47)
[2016-06-14] MEDS: HYDROCORTISONE 1% CREAM 454 GM JAR TOPICAL SCH ×3 (07:47→17:18)
--- NOTE | 2016-06-14 18:26 | PN ---
DATE OF SERVICE: 06/14/2016 CHIEF COMPLAINT: Respiratory failure and cellulitis lower extremities. HISTORY OF PRESENT ILLNESS: This gentleman is doing fairly well, his legs are wrapped and he is afebrile. Breathing is better. PHYSICAL EXAMINATION: CHEST: Clear. CARDIAC: Normal. ABDOMEN: Soft and nontender. EXTREMITIES: Normal. IMPRESSION: 1. Exacerbation with exacerbation of chronic obstructive pulmonary disease. 2. Cellulitis lower extremities. PLAN: Continue with bed rest and IV antibiotics as well as updrafts.
[2016-06-14] MEDS: QUEtiapine 100 MG TAB PO SCH (21:17)
[2016-06-14] MEDS: THEOPHYLLINE 24 HOUR 400 MG CAP.ER.24H PO SCH (21:17)
[2016-06-14] MEDS: traZODone HCL 100 MG TAB PO SCH (21:17)
[2016-06-14] MEDS: clonazePAM 1 MG TAB PO SCH (21:17)
[2016-06-15] MEDS: methylPREDNISolone SOD SUCCI 125 MG/2 ML VIAL IV SCH ×4 (00:01→17:52)
[2016-06-15] MEDS: AMPICILLIN-SULBACTAM 3 GM in SODIUM CHLORIDE 0.9% 100 ML IVPB SCH ×3 (00:01→16:45)
[2016-06-15] MEDS: HYDROCORTISONE 1% CREAM 454 GM JAR TOPICAL SCH ×5 (00:01→22:54)
[2016-06-15] MEDS: HYDROcodone/APAP 7.5-325MG 1 EACH TAB PO PRN ×2 (05:44→20:01)
[2016-06-15] MEDS: ALLOPURINOL 300 MG TAB PO SCH (07:49)
[2016-06-15] MEDS: ARIPiprazole 2 MG TAB PO SCH (07:49)
[2016-06-15] MEDS: DOXAZOSIN 1 MG TAB PO SCH (07:50)
[2016-06-15] MEDS: buPROPion XL 300 MG TAB.ER.24H PO SCH (07:50)
[2016-06-15] MEDS: FUROSEMIDE 40 MG TAB PO SCH (07:50)
[2016-06-15] MEDS: VENLAFAXINE HCL ER 150 MG CAP PO SCH (07:51)
[2016-06-15] MEDS: HYDROCHLOROTHIAZIDE 50 MG TAB PO SCH (07:51)
[2016-06-15] MEDS: LISINOPRIL 20 MG TAB PO SCH (07:51)
[2016-06-15] MEDS: clonazePAM 0.5 MG TAB PO SCH (07:56)
[2016-06-15] MEDS: ALBUTEROL NEBULIZED 2.5 MG/3 ML INHALATION SCH ×4 (08:15→20:22)
[2016-06-15] MEDS: BUDESONIDE 0.5 MG/2 ML NEBU INHALATION SCH ×2 (08:15→20:22)
[2016-06-15] MEDS ORDERED: SODIUM CHLORIDE 0.9% 1,000 ML IV SCH (16:30)
[2016-06-15] MEDS: THEOPHYLLINE 24 HOUR 400 MG CAP.ER.24H PO SCH (20:01)
[2016-06-15] MEDS: traZODone HCL 100 MG TAB PO SCH (20:01)
[2016-06-15] MEDS: clonazePAM 1 MG TAB PO SCH (20:01)
[2016-06-15] MEDS: QUEtiapine 100 MG TAB PO SCH (21:07)
--- NOTE | 2016-06-15 22:33 | PN ---
CHIEF COMPLAINT: Cellulitis of both legs and exacerbation of chronic obstructive pulmonary disease. HISTORY OF PRESENT ILLNESS: This gentleman is doing well and breathing is improving. PHYSICAL EXAMINATION: Edema in the legs is going down. CHEST: Clear. CARDIAC: Normal. IMPRESSION: 1. Cellulitis of both legs. 2. Improving chronic obstructive pulmonary disease. PLAN: Continue current treatment.
[2016-06-16 00:28] VITALS: TEMP 97.4
[2016-06-16 07:47] VITALS: BP 120/77; RESP 17
[2016-06-16] MEDS: ALBUTEROL NEBULIZED 2.5 MG/3 ML INHALATION SCH (08:04)
[2016-06-16] MEDS: BUDESONIDE 0.5 MG/2 ML NEBU INHALATION SCH (08:04)
[2016-06-16 08:19] VITALS: PULSE 76
[2016-06-16] MEDS: DOXAZOSIN 1 MG TAB PO SCH (08:32)
[2016-06-16] MEDS: LISINOPRIL 20 MG TAB PO SCH (08:32)
[2016-06-16] MEDS: VENLAFAXINE HCL ER 150 MG CAP PO SCH (08:32)
[2016-06-16] MEDS: ALLOPURINOL 300 MG TAB PO SCH (08:32)
[2016-06-16] MEDS: ARIPiprazole 2 MG TAB PO SCH (08:32)
[2016-06-16] MEDS: FUROSEMIDE 40 MG TAB PO SCH (08:32)
[2016-06-16] MEDS: HYDROCHLOROTHIAZIDE 50 MG TAB PO SCH (08:32)
[2016-06-16] MEDS: buPROPion XL 300 MG TAB.ER.24H PO SCH (08:32)
[2016-06-16] MEDS: HYDROcodone/APAP 7.5-325MG 1 EACH TAB PO PRN (08:33)
[2016-06-16] MEDS: clonazePAM 0.5 MG TAB PO SCH (08:37)
[2016-06-16] MEDS: HYDROCORTISONE 1% CREAM 454 GM JAR TOPICAL SCH (08:39)
[2016-06-16] MEDS ORDERED: AMOXIC-POT CLAV 875-125MG 1 EACH TAB PO SCH (09:00)
[2016-06-16] MEDS ORDERED: methylPREDNISolone 4 MG TAB TAPER PO SCH (09:00)
--- NOTE | 2016-06-16 10:24 | P.DS ---
Providers Date of admission: 06/16/16 08:56 Expected date of discharge: 06/16/16 Attending physician: Brien Meyers Primary care physician: [facility] Course: A 61-year-old who presented to the emergency room with a chief complaint of developing shortness of breath patient stated seem to get worse with a deep breath. Patient denied any fever chills. Patient stated he was developing chest discomfort as well additionally patient was complaining of having redness affecting both lower extremities does have a history of cellulitis. Patient stated that he was concerned and came into the emergency room to be evaluated for the above-mentioned symptoms. Patient states he does use oxygen at home 2 L [id number] a CAT scan of the chest was obtained there was no evidence of a pulmonary emboli. There was clearing of the pleural thickening in the right lung compared to an old exam. There was diffuse emphysema changes Dopplers to the lower extremities were negative as well. Patient has limited mobility and uses a wheelchair motorized scooter. Patient's last admission was in April 2016 at that time the patient was treated for an exacerbation of COPD. Patient has a known history of severe COPD. This admission patient was started on updrafts and IV Solu-Medrol was followed closely. Additionally patient has been noted to be noncompliant with care and follow-up visits and taking medication as directed. The course of the hospitalization the symptoms improve patient was felt to be appropriate to be discharged Impression discharge diagnosis Present on admission shortness of breath due to an acute exacerbation of COPD moderate to severe persistent type unable to determine Acute on chronic diastolic heart failure due to hypertensive heart disease with a history of hypertension Frequent reoccurring admissions within the last 60 days suspect due to issues of noncompliant with taking medication and follow-up Bilateral chronic stasis dermatitis involving the bilateral lower extremities A mood disorder suspect bipolar Chronic pain opiate dependency Chronic debilitated limited mobility uses a motorized scooter suspect due to deconditioning advanced COPD Present on admission shortness of breath suspect due to acute exacerbation of asthma moderate persistent unable to determine the type Advanced COPD supplemental home oxygen 2 L [id number] Morbid obesity BMI 49 Present on admission cellulitis to the bilateral lower extremities with a negative Doppler study for evidence of a DVT not detected Chronic hypoxic respiratory failure supplemental home O2 Chronic dyspnea Echocardiogram January 2016 left ventricular systolic function EF 55-60% The above dictated assessment and findings were discussed with dr ruthven Impression and the plan of care have been dictated as directed. [place] [place] nurse practitioner acting as a scribe for dr meyers Patient Condition at Discharge: Good Plan - Discharge Summary New Discharge Prescriptions: Amoxic-Pot Clav 875-125Mg [Augmentin 875-125] 1 each PO Q12HR #14 tab Discharge Medication List ARIPiprazole [Abilify] 2 mg PO DAILY 12/08/13 [History] Albuterol Inhaler [Ventolin Hfa Inhaler] 2 puff INHALATION RT-QID 12/08/13 [ History] Lisinopril [Zestril] 20 mg PO DAILY 12/08/13 [History] Theophylline 24 Hour [Amrk-24] 400 mg PO HS 12/08/13 [History] Venlafaxine HCl ER [Effexor XR] 150 mg PO DAILY 12/08/13 [History] Hydrochlorothiazide [Hydrodiuril] 50 mg PO DAILY 07/09/15 [History] HYDROcodone/APAP 7.5-325MG [[place] 7.5-325] 1 tab PO Q6HR PRN #30 tab 07/12/15 [ Rx] QUEtiapine [SEROquel] 100 mg PO HS tab 08/24/15 [Rx] Allopurinol [Zyloprim] 300 mg PO DAILY 11/11/15 [History] Diphenox-Atrop 2.5-0.025 mg [Lomotil] 2 tab PO QID PRN 11/11/15 [History] Furosemide [Lasix] 40 mg PO DAILY 11/11/15 [History] buPROPion HCL [Wellbutrin XL] 300 mg PO DAILY 11/11/15 [History] clonazePAM [KlonoPIN] 0.5 mg PO QAM 12/09/15 [History] clonazePAM [KlonoPIN] 2 mg PO HS 12/09/15 [History] Doxazosin [Cardura] 1 mg PO DAILY tab 12/11/15 [Rx] Ergocalciferol (Vitamin D2) [Drisdol] 50,000 unit PO Q30D 01/12/16 [History] Butalbit/Acetamin/Caff/Codeine [Fioricet-Cod 02-852-33-30 Cap] 1 cap PO Q6H PRN 03/24/16 [History] Hydrocortisone Cream [Hydrocortisone 2.5% Cream] 1 applic TOPICAL QID 06/12/16 [ History] Triamcinolone 0.1% Cream [Kenalog] 1 applicatio TOPICAL BID 06/12/16 [History] methylPREDNISolone Dose Pack [Medrol Dose Pack] See Taper PO DAILY 06/12/16 [ History] metroNIDAZOLE 0.75% CREAM 1 applic TOPICAL BID 06/12/16 [History] traZODone HCL 300 mg PO HS 06/12/16 [History] Albuterol Nebulized [Ventolin Nebulized] 2.5 mg INHALATION RT-QID nebu [Rx] Amoxic-Pot Clav 875-125Mg [Augmentin 875-125] 1 each PO Q12HR #14 tab 06/16/16 [ Rx] Follow up Appointment(s)/Referral(s): Brien Meyers MD [STAFF PHYSICIAN] - 3 Days Emilie Webb DO [Primary Care Provider] - 1-2 days Patient Instructions/Handouts: Cellulitis (DC), COPD (Chronic Obstructive Pulmonary Disease) (DC) Activity/Diet/Wound Care/Special Instructions: Resume [facility] Discharge Disposition: HOME WITH HOME HEALTH SERVICES
--- NOTE | 2016-06-16 14:44 | PN ---
CHIEF COMPLAINT: Exacerbation of COPD and cellulitis of the lower extremities. HISTORY OF PRESENT ILLNESS: This gentleman is doing well with his breathing and legs are wrapped and responding to treatment and he can probably go home. PHYSICAL EXAM: Breath sounds are poor but they are clear. There is no wheezing. There are no rales or rhonchi. Cardiac exam is normal and the abdomen is protuberant. Extremities look good with very little edema or cellulitis. IMPRESSION: 1. Exacerbation of chronic obstructive pulmonary disease. 2. Cellulitis of both lower extremities. PLAN: Probably home today and this will be arranged by the nurse practitioner.
== END 2016-06-16 11:30 | disposition home health service (06) | DRG 190 ==
LOC: EC 19:34 → 4MS4W 22:25 → 5MS5E 23:55 → OBSVTOIN 06-16 08:56
PROVIDERS: ADMIT Family Medicine; ATTEND Family Medicine
DX: J44.1 Chronic obstructive pulmonary disease with (acute) exacerbation (principal); I50.33 Acute on chronic diastolic (congestive) heart failure; J96.11 Chronic respiratory failure with hypoxia; L03.115 Cellulitis of right lower limb; F11.20 Opioid dependence, uncomplicated; J45.41 Moderate persistent asthma with (acute) exacerbation; L03.116 Cellulitis of left lower limb; Z99.81 Dependence on supplemental oxygen; E66.01 Morbid (severe) obesity due to excess calories; I11.0 Hypertensive heart disease with heart failure; F41.9 Anxiety disorder, unspecified; F60.9 Personality disorder, unspecified; G89.29 Other chronic pain; G43.909 Migraine, unspecified, not intractable, without status migrainosus; M19.90 Unspecified osteoarthritis, unspecified site; F40.240 Claustrophobia; I87.2 Venous insufficiency (chronic) (peripheral); F31.9 Bipolar disorder, unspecified; Z68.42 Body mass index [BMI] 45.0-49.9, adult; Z79.899 Other long term (current) drug therapy; Z87.891 Personal history of nicotine dependence; Z91.19 Patient's noncompliance with other medical treatment and regimen
CPT/HCPCS: 36415; 71020; 71275; 80053; 82550; 82553; 82803; 83605; 83880; 84484; 85025; 85379; 85610; 85730; 87040; 93005; 93970; 94640; 94760; 96365; 96366; 96367; 96375; 96376; 99285

== ENCOUNTER 2016-06-19 13:16 | Inpatient (IN) | payer MEDICARE, OTHER ==
[2016-06-19] MEDS ORDERED: SODIUM CHLORIDE 0.9% 1,000 ML IV ONE (14:18)
[2016-06-19 15:04] LABS: CH 30.1; CHCM 31.8; HCT 51.5 % (39.0-53.0); HDW 2.34; HGB 16.3 gm/dL (13.0-17.5); Immature Gran Flag Slight; MCH 30.1 pg (25.0-35.0); MCHC 31.7 g/dL (31.0-37.0); Mean Platelet Volume 9.1; RBC 5.42 m/uL (4.30-5.90); RDW 14.8 % (11.5-15.5); WBC (Perox) 30.06
[2016-06-19 15:27] LABS: WBC 28.1 k/uL (3.8-10.6)
--- NOTE | 2016-06-19 15:32 | ED ---
Abdominal Pain HPI - General Chief Complaint: Abdominal Pain Stated Complaint: diarreha Time Seen by Provider: 06/19/16 13:35 Source: patient, RN notes reviewed Mode of arrival: EMS Limitations: no limitations - History of Present Illness Initial Comments: Patient 61-year-old male presents to the emergency room for evaluation of diarrhea. Patient states he was admitted here a few days ago for COPD exacerbation and bilateral leg cellulitis. Patient states he was sent home on Augmentin and was warned that it may cause diarrhea. Patient states the day after he came home, he began having excessive diarrhea. Patient states he is exhausted from going back and forth to the bathroom and cleaning himself up. Patient denies abdominal pain. Patient denies chest pain. Patient denies any worsening shortness of breath from usual. Patient states he refuses to take Augmentin anymore. Patient denies fevers or chills. Patient denies nausea or vomiting. Patient states bilateral leg cellulitis has significantly improved since being discharged. Patient denies any pain. Patient states the nurse comes to his house and changes his bandages regularly. - Related Data Home Medications Medication Instructions Recorded Confirmed ARIPiprazole [Abilify] 2 mg PO DAILY 12/08/13 06/19/16 Albuterol Inhaler [Ventolin Hfa 2 puff INHALATION RT-QID 12/08/13 06/19/16 Inhaler] Lisinopril [Zestril] 20 mg PO DAILY 12/08/13 06/19/16 Theophylline 24 Hour [Mark-24] 400 mg PO HS 12/08/13 06/19/16 Venlafaxine HCl ER [Effexor XR] 150 mg PO DAILY 12/08/13 06/19/16 Hydrochlorothiazide [Hydrodiuril] 50 mg PO DAILY 07/09/15 06/19/16 Allopurinol [Zyloprim] 300 mg PO DAILY 11/11/15 06/19/16 Diphenox-Atrop 2.5-0.025 mg 2 tab PO QID PRN 11/11/15 06/19/16 [Lomotil] Furosemide [Lasix] 40 mg PO DAILY 11/11/15 06/19/16 buPROPion HCL [Wellbutrin XL] 300 mg PO DAILY 11/11/15 06/19/16 clonazePAM [KlonoPIN] 0.5 mg PO QAM 12/09/15 06/19/16 clonazePAM [KlonoPIN] 2 mg PO HS 12/09/15 06/19/16 Ergocalciferol (Vitamin D2) 50,000 unit PO Q30D 01/12/16 06/19/16 [Drisdol] Butalbit/Acetamin/Caff/Codeine 1 cap PO Q6H PRN 03/24/16 06/19/16 [Fioricet-Cod 34-512-63-30 Cap] Hydrocortisone Cream 1 applic TOPICAL QID 06/12/16 06/19/16 [Hydrocortisone 2.5% Cream] Triamcinolone 0.1% Cream [Kenalog] 1 applicatio TOPICAL BID 06/12/16 06/19/16 metroNIDAZOLE 0.75% CREAM 1 applic TOPICAL BID 06/12/16 06/19/16 traZODone HCL 300 mg PO HS 06/12/16 06/19/16 Previous Rx's Medication Instructions Recorded HYDROcodone/APAP 7.5-325MG [[place] 1 tab PO Q6HR PRN #30 tab 07/12/15 7.5-325] QUEtiapine [SEROquel] 100 mg PO HS tab 08/24/15 Doxazosin [Cardura] 1 mg PO DAILY tab 12/11/15 Albuterol Nebulized [Ventolin 2.5 mg INHALATION RT-QID nebu 06/16/16 Nebulized] Allergies Allergy/AdvReac Type Severity Reaction Status Date / Time No Known Allergies Allergy Verified 06/19/16 14:49 Review of Systems ROS Statement: Those systems with pertinent positive or pertinent negative responses have been documented in the HPI. ROS Other: All systems not noted in ROS Statement are negative. Past Medical History Past Medical History: Asthma, Chest Pain / Angina, COPD, Hypertension, Osteoarthritis (OA), Respiratory Disorder Additional Past Medical History / Comment(s): O2 AT HOME 5 LITERS N/C CONT, MIGRAINES, obesity, KODI LOWER LEG CELLULITIS. History of Any Multi-Drug Resistant Organisms: None Reported Past Surgical History: Appendectomy, Orthopedic Surgery Additional Past Surgical History / Comment(s): RT EYE SX, RT ANKLE BROKEN 1977 HAD ORIF PLATE/PINS Past Anesthesia/Blood Transfusion Reactions: No Reported Reaction Additional Past Anesthesia/Blood Transfusion Reaction / Comment(s): CLAUSTERPHOBIA Past Psychological History: Anxiety, Depression Additional Psychological History / Comment(s): PT CURRENTLY LIVING AT [facility]. USES WALKER/POWER CHAIR BUT STATED ONLY ABLE TO AMBULATE VERY SHORT DISTANCES AND GETS SOB WITH EXERTION. PT IS RETIRED FROM [employer]. Smoking Status: Former smoker Past Alcohol Use History: None Reported Additional Past Alcohol Use History / Comment(s): STARTED SMOKING AT AGE 11 SMOKED 2 PPD QUIT 2010, HASN'T CONSUMED ETOH SINCE AGE 28(STATED WAS AN ALCOHOLIC FROM AGE [age]) Past Drug Use History: None Reported - Past Family History Father Family Medical History: Diabetes Mellitus Additional Family Medical History / Comment(s): IN 2004 COMPLICATIONS FROM DIABETES Mother Additional Family Medical History / Comment(s): AGE 56 OF FEMALE [place] General Exam - General Exam Comments Initial Comments: Sitting in exam room, no acute distress. Limitations: no limitations General appearance: alert, in no apparent distress Head exam: Present: atraumatic, normocephalic, normal inspection Eye exam: Present: normal appearance ENT exam: Present: normal exam Neck exam: Present: normal inspection Respiratory exam: Present: wheezes. Absent: respiratory distress Cardiovascular Exam: Present: regular rate, normal rhythm, normal heart sounds GI/Abdominal exam: Present: soft, normal bowel sounds. Absent: distended, tenderness, guarding, rebound, rigid Extremities exam: Present: normal inspection, full ROM, normal capillary refill , other (Bilateral leg cellulitis). Absent: tenderness, calf tenderness Back exam: Present: normal inspection Neurological exam: Present: alert, oriented X3, CN II-XII intact Psychiatric exam: Present: normal affect, normal mood Skin exam: Present: warm, dry, intact, normal color. Absent: rash Course Vital Signs 06/19/16 06/19/16 06/19/16 13:32 15:40 19:04 Temperature 98.3 F 97.1 F L Pulse Rate 107 H 86 83 Respiratory 18 18 18 Rate Blood Pressure 124/78 134/67 130/84 O2 Sat by Pulse 95 97 99 Oximetry 06/19/16 19:52 Temperature 97.6 F Pulse Rate 84 Respiratory 18 Rate Blood Pressure 116/64 O2 Sat by Pulse 98 Oximetry Medical Decision Making - Medical Decision Making Patient is 61-year-old male presents emergency room for evaluation of diarrhea. Patient had no episode of diarrhea since he has been here. WBC is significantly elevated. Questionable pneumonia on chest x-ray. Given patient' s history of COPD and elevated white count will admit patient for further evaluation. Case discussed with Dr. Chacon. Dr. Chacon discussed case with Dr. Simms who agreed to admit patient. - Lab Data Result diagrams: 06/19/16 14:52 06/19/16 15:44 Lab Results 06/19/16 06/19/16 06/19/16 Range/Units 14:52 15:44 15:44 WBC 28.1 H* (3.8-10.6) k/uL RBC 5.42 (4.30-5.90) m/uL Hgb 16.3 (13.0-17.5) gm/dL Hct 51.5 (39.0-53.0) % MCV 95.0 (80.0-100.0) fL MCH 30.1 (25.0-35.0) pg MCHC 31.7 (31.0-37.0) g/dL RDW 14.8 (11.5-15.5) % Plt Count 266 (150-450) k/uL Neutrophils % (Manual) 83.5 % Lymphocytes % (Manual) 7.0 % Monocytes % (Manual) 6.5 % Eosinophils % (Manual) 1.5 % Metamyelocytes % 0.5 % Myelocytes % 1.0 % Neutrophils # (Manual) 23.5 H (1.3-7.7) k/uL Lymphocytes # (Manual) 2.0 (1.0-4.8) k/uL Monocytes # (Manual) 1.8 H (0-1.0) k/uL Eosinophils # (Manual) 0.4 (0-0.7) k/uL Nucleated RBCs 0 (0-0) /100 WBC Manual Slide Review Performed Toxic Vacuolation Present Large Platelets Present Sodium 134 L (137-145) mmol/L Potassium 4.3 (3.5-5.1) mmol/L Chloride 93 L (98-107) mmol/L Carbon Dioxide 33 H (22-30) mmol/L Anion Gap 8 mmol/L BUN 27 H (9-20) mg/dL Creatinine 0.98 (0.66-1.25) mg/dL Est GFR (MDRD) Af Amer >60 (>60 ml/min/1.73 sqM) Est GFR (MDRD) Non-Af >60 (>60 ml/min/1.73 sqM) Glucose 81 (74-99) mg/dL Plasma Lactic Acid [place] 1.3 (0.7-2.0) mmol/L Calcium 9.2 (8.4-10.2) mg/dL Magnesium (1.6-2.3) mg/dL Total Bilirubin 0.5 (0.2-1.3) mg/dL AST 24 (17-59) U/L ALT 53 (21-72) U/L Alkaline Phosphatase 88 (38-126) U/L Total Protein 6.6 (6.3-8.2) g/dL Albumin 4.0 (3.5-5.0) g/dL Urine Color Urine Appearance (Clear) Urine pH (5.0-8.0) Ur Specific [place] (1.001-1.035) Urine Protein (Negative) Urine Glucose (UA) (Negative) Urine Ketones (Negative) Urine Blood (Negative) Urine Nitrite (Negative) Urine Bilirubin (Negative) Urine Urobilinogen (<2.0) mg/dL Ur Leukocyte Esterase (Negative) Influenza Type A RNA (Not Detectd) Influenza Type B (PCR) (Not Detectd) 06/19/16 06/19/16 06/19/16 Range/Units 17:37 18:00 18:02 WBC (3.8-10.6) k/uL RBC (4.30-5.90) m/uL Hgb (13.0-17.5) gm/dL Hct (39.0-53.0) % MCV (80.0-100.0) fL MCH (25.0-35.0) pg MCHC (31.0-37.0) g/dL RDW (11.5-15.5) % Plt Count (150-450) k/uL Neutrophils % (Manual) % Lymphocytes % (Manual) % Monocytes % (Manual) % Eosinophils % (Manual) % Metamyelocytes % % Myelocytes % % Neutrophils # (Manual) (1.3-7.7) k/uL Lymphocytes # (Manual) (1.0-4.8) k/uL Monocytes # (Manual) (0-1.0) k/uL Eosinophils # (Manual) (0-0.7) k/uL Nucleated RBCs (0-0) /100 WBC Manual Slide Review Toxic Vacuolation Large Platelets Sodium (137-145) mmol/L Potassium (3.5-5.1) mmol/L Chloride (98-107) mmol/L Carbon Dioxide (22-30) mmol/L Anion Gap mmol/L BUN (9-20) mg/dL Creatinine (0.66-1.25) mg/dL Est GFR (MDRD) Af Amer (>60 ml/min/1.73 sqM) Est GFR (MDRD) Non-Af (>60 ml/min/1.73 sqM) Glucose (74-99) mg/dL Plasma Lactic Acid [place] (0.7-2.0) mmol/L Calcium (8.4-10.2) mg/dL Magnesium 1.9 (1.6-2.3) mg/dL Total Bilirubin (0.2-1.3) mg/dL AST (17-59) U/L ALT (21-72) U/L Alkaline Phosphatase (38-126) U/L Total Protein (6.3-8.2) g/dL Albumin (3.5-5.0) g/dL Urine Color Light Yellow Urine Appearance Clear (Clear) Urine pH 5.5 (5.0-8.0) Ur Specific [place] 1.009 (1.001-1.035) Urine Protein Negative (Negative) Urine Glucose (UA) Negative (Negative) Urine Ketones Negative (Negative) Urine Blood Negative (Negative) Urine Nitrite Negative (Negative) Urine Bilirubin Negative (Negative) Urine Urobilinogen <2.0 (<2.0) mg/dL Ur Leukocyte Esterase Negative (Negative) Influenza Type A RNA Not Detected (Not Detectd) Influenza Type B (PCR) Not Detected (Not Detectd) - Radiology Data Radiology results: report reviewed, image reviewed Disposition Clinical Impression: Pneumonia, Leukocytosis Disposition: ADMITTED IP TO THIS HOSP Condition: Stable Decision Date: 06/19/16
[2016-06-19 16:14] LABS: ALT 53 U/L (21-72); AST 24 U/L (17-59); Alkaline Phosphatase 88 U/L (38-126); Anion Gap 8 mmol/L; Blood Urea Nitrogen 27 mg/dL (9-20); Calcium 9.2 mg/dL (8.4-10.2); Carbon Dioxide 33 mmol/L (22-30); Chloride 93 mmol/L (98-107); Glucose 81 mg/dL (74-99); Non-African American GFR(MDRD) >60 (>60 ml/min/1.73 sqM); Potassium 4.3 mmol/L (3.5-5.1); Sodium 134 mmol/L (137-145); Total Bilirubin 0.5 mg/dL (0.2-1.3); Total Protein 6.6 g/dL (6.3-8.2)
[2016-06-19 16:42] LABS: Add Differential Manual Differential
[2016-06-19 16:45] LABS: Manual Review Performed; Metamyelocytes % 0.5 %; Nucleated Red Blood Cells 0 /100 WBC (0-0); Total Cells Counted 200; Toxic Vacuolation Present
[2016-06-19 16:46] LABS: Large Platelets Present
--- NOTE | 2016-06-19 17:55 | XR ---
EXAMINATION TYPE: XR abdomen acute w cxr DATE OF EXAM: 06/19/2016 5:39 PM COMPARISON: CT angiography of the chest dated 06/12/2016. HISTORY: Diarrhea and COPD. TECHNIQUE: Frontal chest radiograph, supine abdominal radiograph and upright abdominal radiograph ar e obtained. FINDINGS: There are bilateral small pleural effusions blunting the costophrenic angles as well as scattered criss ear subsegmental atelectasis. The patient's body habitus and overpenetration limit the exam, however the bowel gas pattern is nonobstructive with no evidence of bowel dilation or overt evidence of pneum operitoneum. There are degenerative changes of the thoracolumbar and lumbosacral spine. Osseous struc tures appear intact. No sizable differential air-fluid levels are noted. IMPRESSION: 1. Slightly limited exam due to patient body habitus and technique, however the bowel gas pattern is nonobstructive. 2. Small bilateral pleural effusions and scattered linear subsegmental atelectasis.
[2016-06-19 18:12] LABS: Appearance,Urine Clear (Clear); Bilirubin,Urine Negative (Negative); Glucose,Urine (UA) Negative (Negative); Ketones,Urine Negative (Negative); Leukocyte Esterase,Urine Negative (Negative); Nitrite,Urine Negative (Negative); PH, Urine 5.5 (5.0-8.0); Protein,Urine Negative (Negative); Specific Gravity,Urine 1.009 (1.001-1.035); UA Billing (MACRO vs. MICRO) CHEM; Urobilinogen,Urine <2.0 mg/dL (<2.0)
[2016-06-19] MEDS ORDERED: NALOXONE 0.4 MG/ML 1 ML VIAL IV PRN (18:34)
[2016-06-19] MEDS ORDERED: ONDANSETRON 4 MG/2 ML VIAL IVP PRN (18:34)
[2016-06-19] MEDS ORDERED: BUTA/APAP/CAF/COD 50-325-40-30 CAP PO PRN (18:43)
[2016-06-19] MEDS ORDERED: ERGOCALCIFEROL 50,000 UNIT CAP PO SCH (19:00)
[2016-06-19] MEDS: SODIUM CHLORIDE 0.9% 1,000 ML IV SCH (19:03)
[2016-06-19] MEDS ORDERED: ALBUTEROL INHALER 60 PUFF/8 GM INHALER INHALATION SCH (20:00)
[2016-06-19] MEDS: ALBUTEROL NEBULIZED 2.5 MG/3 ML INHALATION SCH (20:16)
[2016-06-19] MEDS: THEOPHYLLINE 24 HOUR 400 MG CAP.ER.24H PO SCH (21:09)
[2016-06-19] MEDS: HYDROcodone/APAP 5-325MG 1 EACH TAB PO PRN (21:10)
[2016-06-19] MEDS: clonazePAM 1 MG TAB PO SCH (21:50)
[2016-06-19] MEDS: HYDROCORTISONE 1% CREAM 30 GM TUBE TOPICAL SCH (21:51)
[2016-06-19] MEDS: QUEtiapine 100 MG TAB PO SCH (21:51)
[2016-06-19] MEDS: TRIAMCINOLONE 0.1% CREAM 80 GM TUBE TOPICAL SCH (21:51)
[2016-06-19] MEDS: traZODone HCL 100 MG TAB PO SCH (21:52)
[2016-06-19 21:59] LABS: Glucose,Whole Blood 140 mg/dL (75-99)
[2016-06-19 22:56] VITALS: BMI 47.2
[2016-06-20] MEDS: HYDROcodone/APAP 5-325MG 1 EACH TAB PO PRN ×5 (04:23→20:58)
[2016-06-20] MEDS: ALBUTEROL NEBULIZED 2.5 MG/3 ML INHALATION SCH ×4 (07:13→18:53)
[2016-06-20 07:44] LABS: Glucose,Whole Blood 78 mg/dL (75-99)
[2016-06-20] MEDS: LISINOPRIL 20 MG TAB PO SCH (08:17)
[2016-06-20] MEDS: VENLAFAXINE HCL ER 150 MG CAP PO SCH (08:17)
[2016-06-20] MEDS: ARIPiprazole 2 MG TAB PO SCH (08:17)
[2016-06-20] MEDS: HYDROCHLOROTHIAZIDE 50 MG TAB PO SCH (08:17)
[2016-06-20] MEDS: ALLOPURINOL 300 MG TAB PO SCH (08:17)
[2016-06-20] MEDS: TRIAMCINOLONE 0.1% CREAM 80 GM TUBE TOPICAL SCH ×2 (08:17→21:01)
[2016-06-20] MEDS: buPROPion XL 300 MG TAB.ER.24H PO SCH (08:17)
[2016-06-20] MEDS: DOXAZOSIN 1 MG TAB PO SCH (08:17)
[2016-06-20] MEDS: FUROSEMIDE 40 MG TAB PO SCH (08:17)
[2016-06-20] MEDS: HYDROCORTISONE 1% CREAM 30 GM TUBE TOPICAL SCH ×4 (08:18→21:01)
[2016-06-20] MEDS: clonazePAM 0.5 MG TAB PO SCH (08:22)
[2016-06-20 09:33] LABS: CH 30.3; CHCM 31.1; HCT 49.8 % (39.0-53.0); Hypochromasia Slight; Immature Gran Flag Moderate; MCH 29.6 pg (25.0-35.0); MCHC 30.2 g/dL (31.0-37.0); MCV 98.1 fL (80.0-100.0); Mean Platelet Volume 8.8; RBC 5.08 m/uL (4.30-5.90); RDW 14.7 % (11.5-15.5); WBC 19.5 k/uL (3.8-10.6); WBC (Perox) 20.09
[2016-06-20 10:52] LABS: Add Differential Manual Differential
[2016-06-20 10:57] LABS: Metamyelocytes % 1.5 %; Myelocytes % 0.5 %; Nucleated Red Blood Cells 0 /100 WBC (0-0); Total Cells Counted 200
[2016-06-20 10:59] LABS: Manual Review Performed
[2016-06-20 12:03] LABS: Glucose,Whole Blood 109 mg/dL (75-99)
[2016-06-20] MEDS ORDERED: LOPERAMIDE 2 MG CAP PO PRN (12:49)
[2016-06-20] MEDS: SODIUM CHLORIDE 0.9% 1,000 ML IV SCH (15:40)
[2016-06-20 17:00] LABS: Glucose,Whole Blood 100 mg/dL (75-99)
[2016-06-20] MEDS: CHOLESTYRAMINE (WITH SUGAR) 4 GM PACKET PO SCH (17:01)
[2016-06-20 20:57] LABS: Glucose,Whole Blood 93 mg/dL (75-99)
[2016-06-20] MEDS: THEOPHYLLINE 24 HOUR 400 MG CAP.ER.24H PO SCH (20:57)
[2016-06-20] MEDS: traZODone HCL 100 MG TAB PO SCH (20:57)
[2016-06-20] MEDS: QUEtiapine 100 MG TAB PO SCH (20:58)
[2016-06-20] MEDS: clonazePAM 1 MG TAB PO SCH (20:59)
--- NOTE | 2016-06-20 21:01 | HP ---
DATE OF ADMISSION: 06/19/2016 CHIEF COMPLAINT: Difficulty breathing. HISTORY OF PRESENT ILLNESS: This is another admission for this 61-year-old white male. He just left the hospital. He went home and started having trouble with breathing and came back to the emergency room. His white count was elevated at this time. He has had no fever, chills, etc. REVIEW OF SYSTEMS: Otherwise unremarkable. Past medical history, family history, and personal and social histories are all unchanged. PHYSICAL EXAMINATION: Blood pressure is 143/88 with a pulse of 92, respirations of 46. He is afebrile. In general he appeared to be somewhat dyspneic. Head, ears, eyes, nose, mouth and throat were normal. Chest demonstrated increased AP diameter with poor breath sounds. There are wheezes, rales and rhonchi heard throughout. Cardiac exam demonstrated sinus tachycardia. The abdomen is protuberant, soft, and there are no masses. Extremities were normal and his cellulitis was improved. IMPRESSION: 1. Exacerbation of chronic obstructive pulmonary disease. 2. Leukocytosis. 3. Cellulitis of the lower extremities. 4. Personality disorder. PLAN: 1. Bed rest. 2. IV fluids. 3. Updrafts. 4. Work up white count.
--- NOTE | 2016-06-20 21:03 | PN ---
DATE OF SERVICE: 06/20/2016 CHIEF COMPLAINT: Exacerbation of COPD. HISTORY OF PRESENT ILLNESS: This gentleman is doing fairly well, but now he has diarrhea. He has had no melena or hematochezia. Breathing is slightly improved. PHYSICAL EXAMINATION: Breath sounds are poor throughout. No wheezes or rales. There are rhonchi scattered throughout. He has prolonged expiratory phase. Cardiac exam is normal. His abdomen is soft and protuberant. Extremities are improved. Neurologically he is intact. PLAN: Continue treatment and follow white count.
[2016-06-21] MEDS: HYDROcodone/APAP 5-325MG 1 EACH TAB PO PRN ×4 (05:33→15:36)
[2016-06-21] MEDS: ALBUTEROL NEBULIZED 2.5 MG/3 ML INHALATION SCH ×4 (07:12→19:40)
[2016-06-21 07:34] LABS: Glucose,Whole Blood 124 mg/dL (75-99)
[2016-06-21] MEDS: clonazePAM 0.5 MG TAB PO SCH (08:57)
[2016-06-21] MEDS: CHOLESTYRAMINE (WITH SUGAR) 4 GM PACKET PO SCH ×2 (08:57→17:39)
[2016-06-21] MEDS: DOXAZOSIN 1 MG TAB PO SCH (08:57)
[2016-06-21] MEDS: HYDROCHLOROTHIAZIDE 50 MG TAB PO SCH (08:57)
[2016-06-21] MEDS: ALLOPURINOL 300 MG TAB PO SCH (08:57)
[2016-06-21] MEDS: FUROSEMIDE 40 MG TAB PO SCH (08:58)
[2016-06-21] MEDS: LISINOPRIL 20 MG TAB PO SCH (08:58)
[2016-06-21] MEDS: buPROPion XL 300 MG TAB.ER.24H PO SCH (08:58)
[2016-06-21] MEDS: ARIPiprazole 2 MG TAB PO SCH (08:58)
[2016-06-21] MEDS: VENLAFAXINE HCL ER 150 MG CAP PO SCH (08:58)
[2016-06-21] MEDS: TRIAMCINOLONE 0.1% CREAM 80 GM TUBE TOPICAL SCH ×2 (08:59→22:48)
[2016-06-21] MEDS: HYDROCORTISONE 1% CREAM 30 GM TUBE TOPICAL SCH ×4 (09:06→20:43)
[2016-06-21 09:22] LABS: Basophils # (A) 0.2 k/uL (0-0.2); Basophils % (A) 1 %; CH 30.2; Eosinophils # (A) 0.7 k/uL (0-0.7); Eosinophils % (A) 3 %; HCT 49.1 % (39.0-53.0); HDW 2.36; HGB 15.5 gm/dL (13.0-17.5); Luc # (Auto) 0.44; Luc % (Auto) 2; Lymphocytes # (A) 0.7 k/uL (1.0-4.8); Lymphocytes % (A) 3 %; MCH 29.9 pg (25.0-35.0); MCHC 31.6 g/dL (31.0-37.0); MCV 94.5 fL (80.0-100.0); Monocytes # (A) 1.3 k/uL (0-1.0); Monocytes % (A) 6 %; Neutrophils # (A) 18.1 k/uL (1.3-7.7); Neutrophils % (A) 85 %; RDW 14.8 % (11.5-15.5); WBC 21.3 k/uL (3.8-10.6)
[2016-06-21 09:24] LABS: ALT 43 U/L (21-72); AST 21 U/L (17-59); Alkaline Phosphatase 105 U/L (38-126); Anion Gap 10 mmol/L; Blood Urea Nitrogen 20 mg/dL (9-20); Calcium 8.8 mg/dL (8.4-10.2); Carbon Dioxide 28 mmol/L (22-30); Chloride 91 mmol/L (98-107); Glucose 164 mg/dL (74-99); Non-African American GFR(MDRD) >60 (>60 ml/min/1.73 sqM); Potassium 4.3 mmol/L (3.5-5.1); Sodium 129 mmol/L (137-145); Total Bilirubin 0.6 mg/dL (0.2-1.3); Total Protein 6.1 g/dL (6.3-8.2)
[2016-06-21] MEDS: SODIUM CHLORIDE 0.9% 1,000 ML IV SCH (11:48)
[2016-06-21 12:28] LABS: Glucose,Whole Blood 132 mg/dL (75-99)
--- NOTE | 2016-06-21 17:04 | PN ---
DATE OF SERVICE: 06/21/2016 CHIEF COMPLAINT: Exacerbation of chronic obstructive pulmonary disease and cellulitis of the legs. HISTORY OF PRESENT ILLNESS: This gentleman is improved. Breathing is doing a little bit better. PHYSICAL EXAMINATION: He still has poor breath sounds and there are occasional rales in the bases. There is wheezing on expiration. Cardiac exam is normal. Abdomen is soft and protuberant. IMPRESSION: 1. Bronchopneumonia. 2. Chronic obstructive pulmonary disease. 3. Cellulitis of the legs. PLAN: Continue with current treatment and try to increase his activity.
[2016-06-21] MEDS: THEOPHYLLINE 24 HOUR 400 MG CAP.ER.24H PO SCH (20:48)
[2016-06-21] MEDS: clonazePAM 1 MG TAB PO SCH (20:48)
[2016-06-21] MEDS: traZODone HCL 100 MG TAB PO SCH (20:48)
[2016-06-21] MEDS: QUEtiapine 100 MG TAB PO SCH (20:48)
[2016-06-22] MEDS: SODIUM CHLORIDE 0.9% 1,000 ML IV SCH (05:58)
[2016-06-22] MEDS: ALBUTEROL NEBULIZED 2.5 MG/3 ML INHALATION SCH ×4 (07:38→21:11)
[2016-06-22] MEDS: LISINOPRIL 20 MG TAB PO SCH (09:55)
[2016-06-22] MEDS: VENLAFAXINE HCL ER 150 MG CAP PO SCH (09:55)
[2016-06-22] MEDS: buPROPion XL 300 MG TAB.ER.24H PO SCH (09:55)
[2016-06-22] MEDS: ALLOPURINOL 300 MG TAB PO SCH (09:55)
[2016-06-22] MEDS: FUROSEMIDE 40 MG TAB PO SCH (09:55)
[2016-06-22] MEDS: DOXAZOSIN 1 MG TAB PO SCH (09:55)
[2016-06-22] MEDS: HYDROCHLOROTHIAZIDE 50 MG TAB PO SCH (09:55)
[2016-06-22] MEDS: ARIPiprazole 2 MG TAB PO SCH (09:55)
[2016-06-22] MEDS: clonazePAM 0.5 MG TAB PO SCH (09:55)
[2016-06-22] MEDS: CHOLESTYRAMINE (WITH SUGAR) 4 GM PACKET PO SCH ×2 (09:55→17:19)
[2016-06-22] MEDS: HYDROCORTISONE 1% CREAM 30 GM TUBE TOPICAL SCH ×4 (14:24→22:27)
[2016-06-22] MEDS: TRIAMCINOLONE 0.1% CREAM 80 GM TUBE TOPICAL SCH ×2 (15:17→22:26)
[2016-06-22] MEDS: THEOPHYLLINE 24 HOUR 400 MG CAP.ER.24H PO SCH (22:00)
[2016-06-22] MEDS: traZODone HCL 100 MG TAB PO SCH (22:26)
[2016-06-22] MEDS: QUEtiapine 100 MG TAB PO SCH (22:26)
[2016-06-22] MEDS: clonazePAM 1 MG TAB PO SCH (22:26)
[2016-06-23] MEDS: SODIUM CHLORIDE 0.9% 1,000 ML IV SCH (03:45)
[2016-06-23 08:03] VITALS: BP 128/76; RESP 22; TEMP 96.1
[2016-06-23] MEDS: ARIPiprazole 2 MG TAB PO SCH (08:04)
[2016-06-23] MEDS: buPROPion XL 300 MG TAB.ER.24H PO SCH (08:04)
[2016-06-23] MEDS: VENLAFAXINE HCL ER 150 MG CAP PO SCH (08:04)
[2016-06-23] MEDS: FUROSEMIDE 40 MG TAB PO SCH (08:04)
[2016-06-23] MEDS: DOXAZOSIN 1 MG TAB PO SCH (08:04)
[2016-06-23] MEDS: clonazePAM 0.5 MG TAB PO SCH (08:04)
[2016-06-23] MEDS: ALLOPURINOL 300 MG TAB PO SCH (08:04)
[2016-06-23] MEDS: LISINOPRIL 20 MG TAB PO SCH (08:04)
[2016-06-23] MEDS: HYDROCHLOROTHIAZIDE 50 MG TAB PO SCH (08:04)
[2016-06-23] MEDS: HYDROCORTISONE 1% CREAM 30 GM TUBE TOPICAL SCH ×2 (08:05→13:29)
[2016-06-23] MEDS: TRIAMCINOLONE 0.1% CREAM 80 GM TUBE TOPICAL SCH (08:05)
[2016-06-23] MEDS: ALBUTEROL NEBULIZED 2.5 MG/3 ML INHALATION SCH ×2 (09:16→13:23)
[2016-06-23] MEDS: CHOLESTYRAMINE (WITH SUGAR) 4 GM PACKET PO SCH (11:00)
[2016-06-23] MEDS ORDERED: DIPHENOX-ATROP 2.5-0.025 MG 1 EACH TAB PO STA (12:18)
--- NOTE | 2016-06-23 12:28 | P.DS ---
Providers Date of admission: 06/19/16 18:32 Expected date of discharge: 06/23/16 Attending physician: Brien Meyers Primary care physician: [facility] Course: 61-year-old male looking older than stated age presented to the emergency room with a chief complaint of having loose stools patient was just discharged on June 16 at that time the patient was hospitalized and treated for acute COPD exacerbation with bilateral cellulitis to the lower extremities it was noted at that time the patient was discharged on Augmentin and was warned that it could cause loose stools patient stated the day after he came home he began having excessive diarrhea and decided that he was not going to take the Augmentin he stopped the Augmentin. Patient denied any shortness of breath chest pain dizziness or lightheadedness and continues to refuse Augmentin. Subsequently the patient states that the nurse came out to his house he was set up last admission for visiting nurse to come out to the house for home care visits and did change his dressings to the lower extremities stool was negative for occult blood. Influenza A and B were negative the stool the patient was experiencing was to formed to test for C. diff at the time of discharge patient was having less stooling the white count on admission was 28.1 down to 21.3 on the was started on Questran and Lomotil frequent loose stooling client account manager did pursue the discharge in the home situation the plan is for [place] social services manager to go out to the house and investigate the home in attempt to be a resource to keep the patient from frequent readmissions reinforce the need to comply with taking medication and follow-up as directed Impression discharge diagnosis Mood disorder suspect bipolar Acute exacerbation COPD Present on admission leukocytosis Bilateral cellulitis to the lower extremities chronic Frequent stooling with stool for occult blood negative Abdominal x-ray no acute findings Frequent readmissions issues of noncompliant with taking medication stopped his Augmentin last admission on his own was being treated for bilateral cellulitis refusing to take Augmentin Echocardiogram January 2016 left ventricular systolic function EF 55-60% Chronic hypoxic respiratory failure supplemental home O2 2 L [id number] Chronic dyspnea Morbid obesity BMI 49 Present on admission shortness of breath suspect due to an acute exacerbation of asthma with moderate persistent unable to determine the type chronic Chronic pain opiate dependency Reoccurring frequent admissions within the last 60 days suspect due to issues of noncompliance with taking medication and poor follow-up Bilateral chronic stasis dermatitis involving the bilateral lower extremities Chronic debilitated limited mobility uses a motorized scooter suspect due to deconditioning and advanced COPD and body habitus Chronic diastolic heart failure due to hypertensive heart disease with a history of hypertension Essential hypertension Present on admission frequent stooling shortness of breath influenza A and B- The above dictated assessment and findings were discussed with dr meyers. Impression and the plan of care have been dictated as directed. [facility] [place] nurse practitioner acting as a scribe for dr meyers Patient Condition at Discharge: Stable Plan - Discharge Summary New Discharge Prescriptions: Cholestyramine (with Sugar) [Questran Packet] 4 gm PO TID BETWEEN MEALS #90 packet Diphenox-Atrop 2.5-0.025 mg [Lomotil] 1 tab PO QID PRN #30 tablet PRN Reason: Diarrhea Discharge Medication List ARIPiprazole [Abilify] 2 mg PO DAILY 12/08/13 [History] Albuterol Inhaler [Ventolin Hfa Inhaler] 2 puff INHALATION RT-QID 12/08/13 [ History] Lisinopril [Zestril] 20 mg PO DAILY 12/08/13 [History] Theophylline 24 Hour [Mark-24] 400 mg PO HS 12/08/13 [History] Venlafaxine HCl ER [Effexor XR] 150 mg PO DAILY 12/08/13 [History] Hydrochlorothiazide [Hydrodiuril] 50 mg PO DAILY 07/09/15 [History] HYDROcodone/APAP 7.5-325MG [[place] 7.5-325] 1 tab PO Q6HR PRN #30 tab 07/12/15 [ Rx] QUEtiapine [SEROquel] 100 mg PO HS tab 08/24/15 [Rx] Allopurinol [Zyloprim] 300 mg PO DAILY 11/11/15 [History] Diphenox-Atrop 2.5-0.025 mg [Lomotil] 2 tab PO QID PRN 11/11/15 [History] Furosemide [Lasix] 40 mg PO DAILY 11/11/15 [History] buPROPion HCL [Wellbutrin XL] 300 mg PO DAILY 11/11/15 [History] clonazePAM [KlonoPIN] 0.5 mg PO QAM 12/09/15 [History] clonazePAM [KlonoPIN] 2 mg PO HS 12/09/15 [History] Doxazosin [Cardura] 1 mg PO DAILY tab 12/11/15 [Rx] Ergocalciferol (Vitamin D2) [Drisdol] 50,000 unit PO Q30D 01/12/16 [History] Butalbit/Acetamin/Caff/Codeine [Fioricet-Cod 19-808-65-30 Cap] 1 cap PO Q6H PRN 03/24/16 [History] Hydrocortisone Cream [Hydrocortisone 2.5% Cream] 1 applic TOPICAL QID 06/12/16 [ History] Triamcinolone 0.1% Cream [Kenalog] 1 applicatio TOPICAL BID 06/12/16 [History] metroNIDAZOLE 0.75% CREAM 1 applic TOPICAL BID 06/12/16 [History] traZODone HCL 300 mg PO HS 06/12/16 [History] Albuterol Nebulized [Ventolin Nebulized] 2.5 mg INHALATION RT-QID nebu [Rx] Cholestyramine (with Sugar) [Questran Packet] 4 gm PO TID BETWEEN MEALS #90 packet 06/23/16 [Rx] Diphenox-Atrop 2.5-0.025 mg [Lomotil] 1 tab PO QID PRN #30 tablet 06/23/16 [Rx] Follow up Appointment(s)/Referral(s): [facility], [NON-STAFF] - Emilie Webb DO [Primary Care Provider] - 1-2 days Discharge Disposition: HOME WITH HOME HEALTH SERVICES
[2016-06-23 13:24] LABS: Basophils # (A) 0.1 k/uL (0-0.2); Basophils % (A) 1 %; CH 30.1; Eosinophils # (A) 0.5 k/uL (0-0.7); Eosinophils % (A) 3 %; HCT 48.1 % (39.0-53.0); HDW 2.38; HGB 15.2 gm/dL (13.0-17.5); Luc # (Auto) 0.53; Luc % (Auto) 3; Lymphocytes # (A) 0.7 k/uL (1.0-4.8); Lymphocytes % (A) 4 %; MCH 29.9 pg (25.0-35.0); MCHC 31.6 g/dL (31.0-37.0); MCV 94.5 fL (80.0-100.0); Mean Platelet Volume 7.8; Monocytes % (A) 6 %; Neutrophils # (A) 14.6 k/uL (1.3-7.7); Neutrophils % (A) 84 %; RBC 5.09 m/uL (4.30-5.90); RDW 14.5 % (11.5-15.5); WBC 17.4 k/uL (3.8-10.6)
[2016-06-23 13:26] VITALS: PULSE 88
[2016-06-23 13:26] LABS: Anion Gap 8 mmol/L; Calcium 8.5 mg/dL (8.4-10.2); Carbon Dioxide 30 mmol/L (22-30); Chloride 92 mmol/L (98-107); Glucose 92 mg/dL (74-99); Non-African American GFR(MDRD) >60 (>60 ml/min/1.73 sqM); Sodium 130 mmol/L (137-145); Total Bilirubin 0.6 mg/dL (0.2-1.3)
[2016-06-23 13:31] LABS: ALT 40 U/L (21-72); AST 31 U/L (17-59); Alkaline Phosphatase 99 U/L (38-126); Blood Urea Nitrogen 18 mg/dL (9-20); Potassium 4.6 mmol/L (3.5-5.1); Total Protein 6.4 g/dL (6.3-8.2)
[2016-06-23] MEDS ORDERED: CHOLESTYRAMINE (WITH SUGAR) 4 GM PACKET PO SCH (15:00)
--- NOTE | 2016-06-23 21:31 | PN ---
DATE OF SERVICE: 06/22/2016 CHIEF COMPLAINT: Exacerbation of chronic obstructive pulmonary disease and cellulitis of the legs. HISTORY OF PRESENT ILLNESS: This gentleman is doing fairly well. The bleeding is improved. He can probably go home in a day or two. PHYSICAL EXAMINATION: CHEST: Fairly clear now. There are no rales or rhonchi. ABDOMEN: Soft and protuberant. EXTREMITIES: Improved. IMPRESSION: 1. Exacerbation of chronic obstructive pulmonary disease. 2. Cellulitis of the lower extremities and personality disorder. PLAN: Probably home in the next 2 or 3 days.
--- NOTE | 2016-06-23 22:07 | PN ---
DATE OF SERVICE: 06/23/2016 CHIEF COMPLAINT: Difficulty breathing and cellulitis of the legs. HISTORY OF PRESENT ILLNESS: This gentleman is doing well and thinks he can go home. Breathing has been quite good. PHYSICAL EXAMINATION: Chest is clear. CARDIAC: Normal. ABDOMEN: Soft, nontender. EXTREMITIES: Improved. IMPRESSION: 1. Bronchopneumonia. 2. Cellulitis of the legs. 3. Mental incapacitation. PLAN: Probably home today.
== END 2016-06-23 14:42 | disposition home health service (06) | DRG 190 ==
LOC: EC 13:16 → 4MS4W 18:32
PROVIDERS: ADMIT Family Medicine; ATTEND Family Medicine
DX: J44.0 Chronic obstructive pulmonary disease with (acute) lower respiratory infection (principal); J18.0 Bronchopneumonia, unspecified organism; J96.11 Chronic respiratory failure with hypoxia; L03.115 Cellulitis of right lower limb; J45.41 Moderate persistent asthma with (acute) exacerbation; I50.32 Chronic diastolic (congestive) heart failure; F11.20 Opioid dependence, uncomplicated; L03.116 Cellulitis of left lower limb; L03.119 Cellulitis of unspecified part of limb; I11.0 Hypertensive heart disease with heart failure; E66.01 Morbid (severe) obesity due to excess calories; J44.1 Chronic obstructive pulmonary disease with (acute) exacerbation; F60.9 Personality disorder, unspecified; I87.2 Venous insufficiency (chronic) (peripheral); F41.9 Anxiety disorder, unspecified; G43.909 Migraine, unspecified, not intractable, without status migrainosus; R19.7 Diarrhea, unspecified; F40.240 Claustrophobia; F31.9 Bipolar disorder, unspecified; Z79.899 Other long term (current) drug therapy; Z68.42 Body mass index [BMI] 45.0-49.9, adult; Z87.891 Personal history of nicotine dependence; Z91.19 Patient's noncompliance with other medical treatment and regimen; Z99.81 Dependence on supplemental oxygen
CPT/HCPCS: 36415; 74022; 80053; 81003; 82272; 83605; 83735; 85025; 87040; 87502; 89055; 94640; 94760; 96360; 96361; 99285

== ENCOUNTER 2016-07-03 00:06 | Emergency (ER) | payer MEDICARE, OTHER ==
[2016-07-03] MEDS ORDERED: ALBUTEROL NEBULIZED 2.5 MG/3 ML INHALATION STA (00:09)
[2016-07-03] MEDS ORDERED: IPRATROPIUM 0.5 MG/2.5 ML NEBU INHALATION STA (00:09)
[2016-07-03] MEDS ORDERED: SODIUM CHLORIDE 0.9% 1,000 ML IV STA (00:09)
[2016-07-03 00:13] VITALS: RESP 18
--- NOTE | 2016-07-03 00:20 | ED ---
General Adult HPI - General Chief complaint: Shortness of Breath Stated complaint: TAWNY Time Seen by Provider: 07/03/16 00:08 Source: EMS, RN notes reviewed, old records reviewed Mode of arrival: EMS Limitations: no limitations - History of Present Illness Initial comments: This is a 61-year-old out of the ER for evaluation per patient longest facility for shortness of breath. Patient coming in with increased shortness of breath. Patient's significant medical history for lung disease heart disease. Patient does have positive recent hospital admission for pneumonia. - Related Data Home Medications Medication Instructions Recorded Confirmed ARIPiprazole [Abilify] 2 mg PO DAILY 12/08/13 06/19/16 Albuterol Inhaler [Ventolin Hfa 2 puff INHALATION RT-QID 12/08/13 06/19/16 Inhaler] Lisinopril [Zestril] 20 mg PO DAILY 12/08/13 06/19/16 Theophylline 24 Hour [Mark-24] 400 mg PO HS 12/08/13 06/19/16 Venlafaxine HCl ER [Effexor XR] 150 mg PO DAILY 12/08/13 06/19/16 Hydrochlorothiazide [Hydrodiuril] 50 mg PO DAILY 07/09/15 06/19/16 Allopurinol [Zyloprim] 300 mg PO DAILY 11/11/15 06/19/16 Diphenox-Atrop 2.5-0.025 mg 2 tab PO QID PRN 11/11/15 06/19/16 [Lomotil] Furosemide [Lasix] 40 mg PO DAILY 11/11/15 06/19/16 buPROPion HCL [Wellbutrin XL] 300 mg PO DAILY 11/11/15 06/19/16 clonazePAM [KlonoPIN] 0.5 mg PO QAM 12/09/15 06/19/16 clonazePAM [KlonoPIN] 2 mg PO HS 12/09/15 06/19/16 Ergocalciferol (Vitamin D2) 50,000 unit PO Q30D 01/12/16 06/19/16 [Drisdol] Butalbit/Acetamin/Caff/Codeine 1 cap PO Q6H PRN 03/24/16 06/19/16 [Fioricet-Cod 72-071-54-30 Cap] Hydrocortisone Cream 1 applic TOPICAL QID 06/12/16 06/19/16 [Hydrocortisone 2.5% Cream] Triamcinolone 0.1% Cream [Kenalog] 1 applicatio TOPICAL BID 06/12/16 06/19/16 metroNIDAZOLE 0.75% CREAM 1 applic TOPICAL BID 06/12/16 06/19/16 traZODone HCL 300 mg PO HS 06/12/16 06/19/16 Previous Rx's Medication Instructions Recorded HYDROcodone/APAP 7.5-325MG [[place] 1 tab PO Q6HR PRN #30 tab 07/12/15 7.5-325] QUEtiapine [SEROquel] 100 mg PO HS tab 08/24/15 Doxazosin [Cardura] 1 mg PO DAILY tab 12/11/15 Albuterol Nebulized [Ventolin 2.5 mg INHALATION RT-QID nebu 06/16/16 Nebulized] Cholestyramine (with Sugar) 4 gm PO TID BETWEEN MEALS #90 06/23/16 [Questran Packet] packet Diphenox-Atrop 2.5-0.025 mg 1 tab PO QID PRN #30 tablet 06/23/16 [Lomotil] Allergies Allergy/AdvReac Type Severity Reaction Status Date / Time No Known Allergies Allergy Verified 07/03/16 00:14 Review of Systems ROS Statement: Those systems with pertinent positive or pertinent negative responses have been documented in the HPI. ROS Other: All systems not noted in ROS Statement are negative. Past Medical History Past Medical History: Asthma, Chest Pain / Angina, COPD, Hypertension, Osteoarthritis (OA), Respiratory Disorder Additional Past Medical History / Comment(s): O2 AT HOME 5 LITERS N/C CONT, MIGRAINES, obesity, KODI LOWER LEG CELLULITIS. History of Any Multi-Drug Resistant Organisms: None Reported Past Surgical History: Appendectomy, Orthopedic Surgery Additional Past Surgical History / Comment(s): RT EYE SX, RT ANKLE BROKEN 1977 HAD ORIF PLATE/PINS Past Anesthesia/Blood Transfusion Reactions: No Reported Reaction Additional Past Anesthesia/Blood Transfusion Reaction / Comment(s): CLAUSTERPHOBIA Past Psychological History: Anxiety, Depression Additional Psychological History / Comment(s): PT CURRENTLY LIVING AT [facility]. USES WALKER/POWER CHAIR BUT STATED ONLY ABLE TO AMBULATE VERY SHORT DISTANCES AND GETS SOB WITH EXERTION. PT IS RETIRED FROM [employer]. Smoking Status: Former smoker Past Alcohol Use History: None Reported Additional Past Alcohol Use History / Comment(s): STARTED SMOKING AT AGE 11 SMOKED 2 PPD QUIT 2010, HASN'T CONSUMED ETOH SINCE AGE 28(STATED WAS AN ALCOHOLIC FROM AGE [age]) Past Drug Use History: None Reported - Past Family History Father Family Medical History: Diabetes Mellitus Additional Family Medical History / Comment(s): IN 2004 COMPLICATIONS FROM DIABETES Mother Additional Family Medical History / Comment(s): AGE 56 OF FEMALE [place] General Exam Limitations: no limitations General appearance: alert, in no apparent distress Head exam: Present: atraumatic, normocephalic, normal inspection Eye exam: Present: normal appearance, PERRL, EOMI. Absent: scleral icterus, conjunctival injection, periorbital swelling ENT exam: Present: normal exam, mucous membranes moist Neck exam: Present: normal inspection. Absent: tenderness, meningismus, lymphadenopathy Respiratory exam: Present: normal lung sounds bilaterally. Absent: respiratory distress, wheezes, rales, rhonchi, stridor Cardiovascular Exam: Present: regular rate, normal rhythm, normal heart sounds. Absent: systolic murmur, diastolic murmur, rubs, gallop, clicks GI/Abdominal exam: Present: soft, normal bowel sounds. Absent: distended, tenderness, guarding, rebound, rigid Extremities exam: Present: normal inspection, full ROM, normal capillary refill. Absent: tenderness, pedal edema, joint swelling, calf tenderness Back exam: Present: normal inspection Neurological exam: Present: alert, oriented X3, CN II-XII intact Psychiatric exam: Present: normal affect, normal mood Skin exam: Present: warm, dry, intact, normal color. Absent: rash Course Vital Signs 07/03/16 07/03/16 07/03/16 00:10 00:31 00:46 Temperature 98.3 F Pulse Rate 90 88 90 Respiratory 18 Rate Blood Pressure 99/58 O2 Sat by Pulse 94 L Oximetry 07/03/16 01:23 Temperature Pulse Rate 85 Respiratory Rate Blood Pressure O2 Sat by Pulse Oximetry - Reevaluation(s) Reevaluation #1: 07/03/16 00:20 Prior hospitalization and discharge is reviewed Reevaluation #2: 07/03/16 01:57 Patient's symptoms improved after predating treatment EKG Findings - EKG Comments: EKG Findings:: EKG shows normal sinus rate of 83, LA 154, QRS 80, QTC 458 Medical Decision Making - Medical Decision Making 61 malady F reevaluation of exertional shortness of breath. Patient had 2 enemas calls earlier today, he was feeling better after the first. She went the first EMS gave him but the second time they called debarment emergency. Patient feeling better after treatments here in the emergency room. Patient spoken with again for 15 minutes and questions answered regarding exertional dyspnea and future placement. Patient states currently going through evaluation for long-term acute care. Patient would like to be discharged home, patient is in no acute distress resting in bed - Lab Data Result diagrams: 07/03/16 00:20 07/03/16 00:20 Lab Results 07/03/16 07/03/16 07/03/16 Range/Units 00:20 00:20 00:20 WBC 13.9 H (3.8-10.6) k/uL RBC 4.36 (4.30-5.90) m/uL Hgb 13.0 (13.0-17.5) gm/dL Hct 40.7 (39.0-53.0) % MCV 93.4 (80.0-100.0) fL MCH 29.9 (25.0-35.0) pg MCHC 32.0 (31.0-37.0) g/dL RDW 14.7 (11.5-15.5) % Plt Count 311 (150-450) k/uL Neutrophils % 81 % Lymphocytes % 6 % Monocytes % 5 % Eosinophils % 5 % Basophils % 1 % Neutrophils # 11.2 H (1.3-7.7) k/uL Lymphocytes # 0.8 L (1.0-4.8) k/uL Monocytes # 0.7 (0-1.0) k/uL Eosinophils # 0.7 (0-0.7) k/uL Basophils # 0.1 (0-0.2) k/uL PT (9.0-12.0) sec INR (<1.1) APTT (22.0-30.0) sec Sodium 132 L (137-145) mmol/L Potassium 4.4 (3.5-5.1) mmol/L Chloride 98 (98-107) mmol/L Carbon Dioxide 29 (22-30) mmol/L Anion Gap 5 mmol/L BUN 15 (9-20) mg/dL Creatinine 0.80 (0.66-1.25) mg/dL Est GFR (MDRD) Af Amer >60 (>60 ml/min/1.73 sqM) Est GFR (MDRD) Non-Af >60 (>60 ml/min/1.73 sqM) Glucose 118 H (74-99) mg/dL Calcium 8.5 (8.4-10.2) mg/dL Magnesium 1.8 (1.6-2.3) mg/dL Total Bilirubin 0.5 (0.2-1.3) mg/dL AST 19 (17-59) U/L ALT 33 (21-72) U/L Alkaline Phosphatase 93 (38-126) U/L Total Creatine Kinase 43 L (55-170) U/L CK-MB (CK-2) 1.1 (0.0-2.4) ng/mL CK-MB (CK-2) Rel Index 2.6 Troponin I <0.012 (0.000-0.034) ng/mL NT-Pro-B Natriuret Pep pg/mL Total Protein 5.7 L (6.3-8.2) g/dL Albumin 3.1 L (3.5-5.0) g/dL 07/03/16 07/03/16 Range/Units 00:20 00:20 WBC (3.8-10.6) k/uL RBC (4.30-5.90) m/uL Hgb (13.0-17.5) gm/dL Hct (39.0-53.0) % MCV (80.0-100.0) fL MCH (25.0-35.0) pg MCHC (31.0-37.0) g/dL RDW (11.5-15.5) % Plt Count (150-450) k/uL Neutrophils % % Lymphocytes % % Monocytes % % Eosinophils % % Basophils % % Neutrophils # (1.3-7.7) k/uL Lymphocytes # (1.0-4.8) k/uL Monocytes # (0-1.0) k/uL Eosinophils # (0-0.7) k/uL Basophils # (0-0.2) k/uL PT 10.2 (9.0-12.0) sec INR 1.0 (<1.1) APTT 25.3 (22.0-30.0) sec Sodium (137-145) mmol/L Potassium (3.5-5.1) mmol/L Chloride (98-107) mmol/L Carbon Dioxide (22-30) mmol/L Anion Gap mmol/L BUN (9-20) mg/dL Creatinine (0.66-1.25) mg/dL Est GFR (MDRD) Af Amer (>60 ml/min/1.73 sqM) Est GFR (MDRD) Non-Af (>60 ml/min/1.73 sqM) Glucose (74-99) mg/dL Calcium (8.4-10.2) mg/dL Magnesium (1.6-2.3) mg/dL Total Bilirubin (0.2-1.3) mg/dL AST (17-59) U/L ALT (21-72) U/L Alkaline Phosphatase (38-126) U/L Total Creatine Kinase (55-170) U/L CK-MB (CK-2) (0.0-2.4) ng/mL CK-MB (CK-2) Rel Index Troponin I (0.000-0.034) ng/mL NT-Pro-B Natriuret Pep 151 pg/mL Total Protein (6.3-8.2) g/dL Albumin (3.5-5.0) g/dL - Radiology Data Radiology results: report reviewed (Chest x-ray is negative for acute disease), image reviewed Disposition Clinical Impression: Acute exacerbation of chronic obstructive airways disease Narrative: Exertional dyspnea Disposition: HOME SELF-CARE Condition: Good Instructions: Chronic Bronchitis (ED) Referrals: Emilie Webb DO [Primary Care Provider] - 1-2 days
[2016-07-03 00:37] LABS: Basophils # (A) 0.1 k/uL (0-0.2); Basophils % (A) 1 %; CH 29.9; CHCM 32.2; Eosinophils # (A) 0.7 k/uL (0-0.7); Eosinophils % (A) 5 %; HCT 40.7 % (39.0-53.0); HDW 2.45; Luc # (Auto) 0.37; Luc % (Auto) 3; Lymphocytes # (A) 0.8 k/uL (1.0-4.8); Lymphocytes % (A) 6 %; MCH 29.9 pg (25.0-35.0); MCV 93.4 fL (80.0-100.0); Mean Platelet Volume 6.8; Monocytes # (A) 0.7 k/uL (0-1.0); Monocytes % (A) 5 %; Neutrophils # (A) 11.2 k/uL (1.3-7.7); Neutrophils % (A) 81 %; RBC 4.36 m/uL (4.30-5.90); RDW 14.7 % (11.5-15.5); WBC 13.9 k/uL (3.8-10.6); WBC (Perox) 13.86
[2016-07-03 00:48] LABS: ALT 33 U/L (21-72); AST 19 U/L (17-59); Alkaline Phosphatase 93 U/L (38-126); Anion Gap 5 mmol/L; Blood Urea Nitrogen 15 mg/dL (9-20); Calcium 8.5 mg/dL (8.4-10.2); Carbon Dioxide 29 mmol/L (22-30); Chloride 98 mmol/L (98-107); Glucose 118 mg/dL (74-99); Magnesium 1.8 mg/dL (1.6-2.3); Non-African American GFR(MDRD) >60 (>60 ml/min/1.73 sqM); Potassium 4.4 mmol/L (3.5-5.1); Sodium 132 mmol/L (137-145); Total Bilirubin 0.5 mg/dL (0.2-1.3); Total Protein 5.7 g/dL (6.3-8.2)
[2016-07-03 00:50] LABS: Partial Thromboplastin Time 25.3 sec (22.0-30.0); Prothrombin Time 10.2 sec (9.0-12.0)
[2016-07-03 01:02] LABS: Creatine Kinase 43 U/L (55-170)
[2016-07-03 01:15] LABS: Creatine Kinase MB 1.1 ng/mL (0.0-2.4); Troponin I <0.012 ng/mL (0.000-0.034)
--- NOTE | 2016-07-03 01:42 | XR ---
EXAM: XR Chest, 2 Views. CLINICAL HISTORY: Reason: difficulty breathing TECHNIQUE: Frontal and lateral views of the chest. COMPARISON: CT of 06/12/16. FINDINGS/IMPRESSION: Bullous emphysema. Superimposed pleural/parenchymal scarring. Cannot exclude acute infection in the left upper lobe.
[2016-07-03 02:14] VITALS: BP 104/63; PULSE 78; TEMP 97.3
== END 2016-07-03 02:15 | disposition home or self-care (01) ==
LOC: EC 00:06
DX: J44.1 Chronic obstructive pulmonary disease with (acute) exacerbation (principal); I10 Essential (primary) hypertension; J45.909 Unspecified asthma, uncomplicated; M19.90 Unspecified osteoarthritis, unspecified site; F32.9 Major depressive disorder, single episode, unspecified; F41.9 Anxiety disorder, unspecified; E66.9 Obesity, unspecified; Z68.31 Body mass index [BMI] 31.0-31.9, adult; Z87.891 Personal history of nicotine dependence; Z79.899 Other long term (current) drug therapy; Z87.01 Personal history of pneumonia (recurrent); Z99.81 Dependence on supplemental oxygen
CPT/HCPCS: 36415; 71020; 71260; 80048; 80053; 81001; 82103; 82550; 82553; 83735; 83880; 84484; 85025; 85610; 85730; 87040; 87502; 93005; 94640; 94644; 94760; 96361; 96374; 96375; 99285

== ENCOUNTER 2016-07-06 09:56 | Inpatient (IN) | payer MEDICARE, OTHER ==
[2016-07-06] MEDS ORDERED: methylPREDNISolone SOD SUCCI 125 MG/2 ML VIAL IV STA (11:04)
[2016-07-06] MEDS ORDERED: LEVOFLOXACIN 750 MG TAB PO STA (11:04)
[2016-07-06] MEDS ORDERED: IPRATROPIUM-ALBUTEROL 3 ML NEB INHALATION STA ×2 (11:04→15:13)
--- NOTE | 2016-07-06 11:13 | ED ---
SOB HPI - General Chief Complaint: Shortness of Breath Stated Complaint: TAWNY Time Seen by Provider: 07/06/16 10:00 Source: patient Mode of arrival: EMS Limitations: no limitations - History of Present Illness Initial Comments: Complaining about redness of breath, he has a history of COPD this morning he was trying to do some chores inside the house he fell felt that he almost passed out he said he had a hard time breathing and we called the ambulance. He denies any chest pain it's not worse with a deep breaths denies any fever no chills he has been coughing up some phlegm does have a history of COPD and he has a chronic cough. Review of system is negative otherwise initially he didn' t mention anything about swelling of the legs - Related Data Home Medications Medication Instructions Recorded Confirmed ARIPiprazole [Abilify] 2 mg PO DAILY 12/08/13 07/06/16 Albuterol Inhaler [Ventolin Hfa 2 puff INHALATION RT-QID 12/08/13 07/06/16 Inhaler] Lisinopril [Zestril] 20 mg PO DAILY 12/08/13 07/06/16 Theophylline 24 Hour [Mark-24] 400 mg PO HS 12/08/13 07/06/16 Venlafaxine HCl ER [Effexor XR] 150 mg PO DAILY 12/08/13 07/06/16 Hydrochlorothiazide [Hydrodiuril] 50 mg PO DAILY 07/09/15 07/06/16 Allopurinol [Zyloprim] 300 mg PO DAILY 11/11/15 07/06/16 Furosemide [Lasix] 40 mg PO DAILY 11/11/15 07/06/16 buPROPion HCL [Wellbutrin XL] 300 mg PO DAILY 11/11/15 07/06/16 clonazePAM [KlonoPIN] 0.5 mg PO QAM 12/09/15 07/06/16 clonazePAM [KlonoPIN] 2 mg PO HS 12/09/15 07/06/16 Ergocalciferol (Vitamin D2) 50,000 unit PO Q30D 01/12/16 06/19/16 [Drisdol] Butalbit/Acetamin/Caff/Codeine 1 cap PO Q6H PRN 03/24/16 06/19/16 [Fioricet-Cod 74-169-28-30 Cap] Hydrocortisone Cream 1 applic TOPICAL QID 06/12/16 07/06/16 [Hydrocortisone 2.5% Cream] Triamcinolone 0.1% Cream [Kenalog] 1 applicatio TOPICAL BID 06/12/16 07/06/16 metroNIDAZOLE 0.75% CREAM 1 applic TOPICAL BID 06/12/16 07/06/16 traZODone HCL 300 mg PO HS 06/12/16 07/06/16 Previous Rx's Medication Instructions Recorded HYDROcodone/APAP 7.5-325MG [[place]com 1 tab PO Q6HR PRN #30 tab 07/12/15 7.5-325] QUEtiapine [SEROquel] 100 mg PO HS tab 08/24/15 Doxazosin [Cardura] 1 mg PO DAILY tab 12/11/15 Albuterol Nebulized [Ventolin 2.5 mg INHALATION RT-QID nebu 06/16/16 Nebulized] Cholestyramine (with Sugar) 4 gm PO TID BETWEEN MEALS #90 06/23/16 [Questran Packet] packet Diphenox-Atrop 2.5-0.025 mg 1 tab PO QID PRN #30 tablet 06/23/16 [Lomotil] Allergies Allergy/AdvReac Type Severity Reaction Status Date / Time No Known Allergies Allergy Verified 07/06/16 13:10 Review of Systems ROS Statement: Those systems with pertinent positive or pertinent negative responses have been documented in the HPI. ROS Other: All systems not noted in ROS Statement are negative. Past Medical History Past Medical History: Asthma, Chest Pain / Angina, COPD, Hypertension, Osteoarthritis (OA), Respiratory Disorder Additional Past Medical History / Comment(s): O2 AT HOME 5 LITERS N/C CONT, MIGRAINES, obesity, KODI LOWER LEG CELLULITIS. History of Any Multi-Drug Resistant Organisms: None Reported Past Surgical History: Appendectomy, Orthopedic Surgery Additional Past Surgical History / Comment(s): RT EYE SX, RT ANKLE BROKEN 1977 HAD ORIF PLATE/PINS Past Anesthesia/Blood Transfusion Reactions: No Reported Reaction Additional Past Anesthesia/Blood Transfusion Reaction / Comment(s): CLAUSTERPHOBIA Past Psychological History: Anxiety, Depression Additional Psychological History / Comment(s): PT CURRENTLY LIVING AT [facility]. USES WALKER/POWER CHAIR BUT STATED ONLY ABLE TO AMBULATE VERY SHORT DISTANCES AND GETS SOB WITH EXERTION. PT IS RETIRED FROM [employer]. Smoking Status: Former smoker Past Alcohol Use History: None Reported Additional Past Alcohol Use History / Comment(s): STARTED SMOKING AT AGE 11 SMOKED 2 PPD QUIT 2010, HASN'T CONSUMED ETOH SINCE AGE 28(STATED WAS AN ALCOHOLIC FROM AGE [age]) Past Drug Use History: None Reported - Past Family History Father Family Medical History: Diabetes Mellitus Additional Family Medical History / Comment(s): IN 2004 COMPLICATIONS FROM DIABETES Mother Additional Family Medical History / Comment(s): AGE 56 OF FEMALE [place] General Exam - General Exam Comments Initial Comments: General: The patient is awake and alert, in no distress, and does not appear acutely ill. GCS is 15 Skin: Skin is warm and dry and no rashes or lesions are noted. Eye: Pupils are equal, round and reactive to light, extra-ocular movements are intact; there is normal conjunctiva bilaterally. Ears, nose, mouth and throat: There are moist mucous membranes and no oral lesions. Neck: The neck is supple, there is no tenderness or JVD. Cardiovascular: There is a regular rate and rhythm. No murmur, rub or gallop is appreciated. Respiratory: To auscultation bilateral, poor air exchange bilaterally Gastrointestinal: Soft, non-distended, non-tender abdomen without masses or organomegaly noted. There is no rebound or guarding present. Bowel sounds are unremarkable. Back: There is no tenderness to palpation in the midline. There is no obvious deformity. Musculoskeletal: Normal ROM, no tenderness, both legs have some chronic changes 2-3+ edema bilaterally in the venous stasis him a iron pigment deposits and some blisters which are oozing fluid and findings also consistent with a cellulitis Neurological: CN II-XII intact, Cranial nerves III through XII are intact. There are no obvious motor or sensory deficits. Coordination appears grossly intact. Speech is normal. Psychiatric: Cooperative, appropriate mood & affect, normal judgment. Limitations: no limitations Course Vital Signs 07/06/16 07/06/16 07/06/16 10:03 11:19 11:26 Temperature 97.4 F L Pulse Rate 86 93 96 Respiratory 25 H Rate Blood Pressure 135/59 O2 Sat by Pulse 93 L Oximetry 07/06/16 07/06/16 07/06/16 11:54 13:24 14:56 Temperature 98.1 F 97.6 F Pulse Rate 90 93 106 H Respiratory 25 H 16 20 Rate Blood Pressure 138/78 135/59 122/77 O2 Sat by Pulse 97 97 90 L Oximetry 07/06/16 07/06/16 07/06/16 15:30 15:40 17:00 Temperature 98 F Pulse Rate 93 95 106 H Respiratory 20 Rate Blood Pressure 134/71 O2 Sat by Pulse 94 L Oximetry EKG is sinus rhythm medical rate is 86 WA interval is 170 QRS duration is 74 QT/ QTC 368/440 review of this EKG does not reveal any ST elevation or ST depression Medical Decision Making - Lab Data Result diagrams: 07/06/16 10:14 07/06/16 10:14 Lab Results 07/06/16 07/06/16 07/06/16 Range/Units 10:14 10:14 10:14 WBC 12.4 H (3.8-10.6) k/uL RBC 4.81 (4.30-5.90) m/uL Hgb 14.3 (13.0-17.5) gm/dL Hct 45.2 (39.0-53.0) % MCV 94.1 (80.0-100.0) fL MCH 29.7 (25.0-35.0) pg MCHC 31.6 (31.0-37.0) g/dL RDW 14.6 (11.5-15.5) % Plt Count 320 (150-450) k/uL Neutrophils % 78 % Lymphocytes % 6 % Monocytes % 6 % Eosinophils % 5 % Basophils % 1 % Neutrophils # 9.7 H (1.3-7.7) k/uL Lymphocytes # 0.8 L (1.0-4.8) k/uL Monocytes # 0.7 (0-1.0) k/uL Eosinophils # 0.7 (0-0.7) k/uL Basophils # 0.1 (0-0.2) k/uL PT (9.0-12.0) sec INR (<1.1) APTT (22.0-30.0) sec Sodium 137 (137-145) mmol/L Potassium 4.6 (3.5-5.1) mmol/L Chloride 96 L (98-107) mmol/L Carbon Dioxide 34 H (22-30) mmol/L Anion Gap 7 mmol/L BUN 16 (9-20) mg/dL Creatinine 0.88 (0.66-1.25) mg/dL Est GFR (MDRD) Af Amer >60 (>60 ml/min/1.73 sqM) Est GFR (MDRD) Non-Af >60 (>60 ml/min/1.73 sqM) Glucose 103 H (74-99) mg/dL Calcium 9.0 (8.4-10.2) mg/dL Total Bilirubin 0.5 (0.2-1.3) mg/dL AST 20 (17-59) U/L ALT 29 (21-72) U/L Alkaline Phosphatase 110 (38-126) U/L Total Creatine Kinase 31 L (55-170) U/L CK-MB (CK-2) 0.7 (0.0-2.4) ng/mL CK-MB (CK-2) Rel Index 2.3 Troponin I <0.012 (0.000-0.034) ng/mL NT-Pro-B Natriuret Pep pg/mL Total Protein 6.4 (6.3-8.2) g/dL Albumin 3.5 (3.5-5.0) g/dL 07/06/16 07/06/16 Range/Units 10:14 10:14 WBC (3.8-10.6) k/uL RBC (4.30-5.90) m/uL Hgb (13.0-17.5) gm/dL Hct (39.0-53.0) % MCV (80.0-100.0) fL MCH (25.0-35.0) pg MCHC (31.0-37.0) g/dL RDW (11.5-15.5) % Plt Count (150-450) k/uL Neutrophils % % Lymphocytes % % Monocytes % % Eosinophils % % Basophils % % Neutrophils # (1.3-7.7) k/uL Lymphocytes # (1.0-4.8) k/uL Monocytes # (0-1.0) k/uL Eosinophils # (0-0.7) k/uL Basophils # (0-0.2) k/uL PT 10.2 (9.0-12.0) sec INR 1.0 (<1.1) APTT 25.6 (22.0-30.0) sec Sodium (137-145) mmol/L Potassium (3.5-5.1) mmol/L Chloride (98-107) mmol/L Carbon Dioxide (22-30) mmol/L Anion Gap mmol/L BUN (9-20) mg/dL Creatinine (0.66-1.25) mg/dL Est GFR (MDRD) Af Amer (>60 ml/min/1.73 sqM) Est GFR (MDRD) Non-Af (>60 ml/min/1.73 sqM) Glucose (74-99) mg/dL Calcium (8.4-10.2) mg/dL Total Bilirubin (0.2-1.3) mg/dL AST (17-59) U/L ALT (21-72) U/L Alkaline Phosphatase (38-126) U/L Total Creatine Kinase (55-170) U/L CK-MB (CK-2) (0.0-2.4) ng/mL CK-MB (CK-2) Rel Index Troponin I (0.000-0.034) ng/mL NT-Pro-B Natriuret Pep 213 pg/mL Total Protein (6.3-8.2) g/dL Albumin (3.5-5.0) g/dL Disposition Clinical Impression: Acute exacerbation of COPD with asthma, Lung nodule, Cellulitis, leg Disposition: ADMITTED IP TO THIS HOSP Condition: Fair
[2016-07-06] MEDS: SODIUM CHLORIDE 0.9% 1,000 ML IV STA (11:14)
[2016-07-06 11:18] LABS: Basophils # (A) 0.1 k/uL (0-0.2); Basophils % (A) 1 %; CH 29.8; CHCM 31.8; Eosinophils # (A) 0.7 k/uL (0-0.7); Eosinophils % (A) 5 %; HCT 45.2 % (39.0-53.0); HDW 2.48; HGB 14.3 gm/dL (13.0-17.5); Luc # (Auto) 0.45; Luc % (Auto) 4; Lymphocytes # (A) 0.8 k/uL (1.0-4.8); Lymphocytes % (A) 6 %; MCH 29.7 pg (25.0-35.0); MCHC 31.6 g/dL (31.0-37.0); MCV 94.1 fL (80.0-100.0); Mean Platelet Volume 7.2; Monocytes # (A) 0.7 k/uL (0-1.0); Monocytes % (A) 6 %; Neutrophils # (A) 9.7 k/uL (1.3-7.7); Neutrophils % (A) 78 %; RBC 4.81 m/uL (4.30-5.90); RDW 14.6 % (11.5-15.5); WBC 12.4 k/uL (3.8-10.6); WBC (Perox) 12.33
[2016-07-06 11:27] LABS: Partial Thromboplastin Time 25.6 sec (22.0-30.0); Prothrombin Time 10.2 sec (9.0-12.0)
[2016-07-06 11:28] LABS: ALT 29 U/L (21-72); AST 20 U/L (17-59); Alkaline Phosphatase 110 U/L (38-126); Anion Gap 7 mmol/L; Blood Urea Nitrogen 16 mg/dL (9-20); Carbon Dioxide 34 mmol/L (22-30); Chloride 96 mmol/L (98-107); Glucose 103 mg/dL (74-99); Non-African American GFR(MDRD) >60 (>60 ml/min/1.73 sqM); Potassium 4.6 mmol/L (3.5-5.1); Sodium 137 mmol/L (137-145); Total Bilirubin 0.5 mg/dL (0.2-1.3); Total Protein 6.4 g/dL (6.3-8.2)
[2016-07-06 11:39] LABS: Creatine Kinase 31 U/L (55-170)
[2016-07-06 11:52] LABS: Creatine Kinase MB 0.7 ng/mL (0.0-2.4); Troponin I <0.012 ng/mL (0.000-0.034)
--- NOTE | 2016-07-06 12:27 | XR ---
EXAMINATION TYPE: XR chest 2V DATE OF EXAM: 07/06/2016 12:15 PM COMPARISON: 07/03/2016 TECHNIQUE: PA and lateral views submitted. HISTORY: Abnormal x-ray FINDINGS: Emphysematous changes are seen with chronic appearing pleural thickening or small effusions bilateral ly. Subsegmental perihilar changes are noted. Findings suspicious for pulmonary nodule right upper lo be measuring 1.2 cm. Findings suggest chronic interstitial pulmonary fibrosis. Arthropathy of the karl ulder. IMPRESSION: 1. Chronic pleural-parenchymal changes. There is a small left pleural effusion. Findings are suspicio us for a 1 cm nodule or mass right upper lobe CT chest recommended.
[2016-07-06] MEDS ORDERED: RX INFO: IV CONTRAST WAS GIVEN 1 EACH MISC MISCELLANE PRN (13:10)
--- NOTE | 2016-07-06 13:58 | CT ---
EXAMINATION TYPE: CT chest w con DATE OF EXAM: 07/06/2016 1:48 PM COMPARISON: 06/12/2016 HISTORY: SOB CT DLP: 656.4 mGycm Automated exposure control for dose reduction was used. CONTRAST: CT scan of the chest is performed with IV Contrast, patient injected with 100 mL of Omnipaque 300. FINDINGS: LUNGS: Severe emphysematous changes are seen. Left lower lobe subsegmental consolidation and tiny eff usion. No pneumothorax. Nodular density seen by chest x-ray not well seen by CT scan therefore likely related superimposed structures. MEDIASTINUM: There are no greater than 1 cm hilar or mediastinal lymph nodes. No pericardial effusi on is seen. Aorta of normal caliber. Pulmonary arteries 7 optimally enhanced for evaluation for pulm onary embolism by standard CT technique. OTHER: Hypertrophic and multilevel severe degenerative disc disease noted. Chronic appearing rib def ormities noted suggestive of previous trauma. 4.5 cm left renal mass noted measures 15 [place] uni ts suggestive of cyst. IMPRESSION: 1. Severe emphysematous changes with no suspicious consolidation or mass identified
[2016-07-06] MEDS ORDERED: HYDROcodone/APAP 7.5-325MG 1 EACH TAB PO ONE (15:23)
[2016-07-06] MEDS ORDERED: IPRATROPIUM-ALBUTEROL 3 ML NEB INHALATION PRN (18:12)
[2016-07-06] MEDS ORDERED: FUROSEMIDE 10 MG/ML 4 ML VIAL IV STA (18:21)
[2016-07-06 19:37] VITALS: BMI 44.4
[2016-07-06] MEDS: ALBUTEROL NEBULIZED 2.5 MG/3 ML INHALATION SCH (19:49)
[2016-07-06] MEDS: BUDESONIDE 0.5 MG/2 ML NEBU INHALATION SCH (19:50)
[2016-07-06] MEDS ORDERED: ALBUTEROL INHALER 60 PUFF/8 GM INHALER INHALATION SCH (20:00)
[2016-07-06] MEDS: BUTA/APAP/CAF/COD 50-325-40-30 CAP PO PRN (22:05)
[2016-07-06] MEDS: clonazePAM 1 MG TAB PO SCH (22:05)
[2016-07-06] MEDS: HYDROcodone/APAP 7.5-325MG 1 EACH TAB PO PRN (22:05)
[2016-07-06] MEDS: TRIAMCINOLONE 0.1% CREAM 80 GM TUBE TOPICAL SCH (22:06)
[2016-07-06] MEDS: QUEtiapine 100 MG TAB PO SCH (22:06)
[2016-07-06] MEDS: HYDROCORTISONE 1% CREAM 30 GM TUBE TOPICAL SCH (22:06)
[2016-07-06] MEDS: THEOPHYLLINE 24 HOUR 400 MG CAP.ER.24H PO SCH (22:06)
[2016-07-06] MEDS: traZODone HCL 100 MG TAB PO SCH (22:06)
[2016-07-06] MEDS: FUROSEMIDE 10 MG/ML 4 ML VIAL IV SCH (22:06)
[2016-07-06 23:15] LABS: Glucose,Whole Blood 126 mg/dL (75-99)
[2016-07-06] MEDS: methylPREDNISolone SOD SUCCI 125 MG/2 ML VIAL IV SCH (23:49)
[2016-07-06] MEDS: ceFAZolin 2 GM in SODIUM CHLORIDE 0.9% 100 ML IVPB SCH (23:49)
[2016-07-07] MEDS: BUTA/APAP/CAF/COD 50-325-40-30 CAP PO PRN (04:12)
[2016-07-07] MEDS: HYDROcodone/APAP 7.5-325MG 1 EACH TAB PO PRN ×2 (04:13→17:14)
[2016-07-07] MEDS: methylPREDNISolone SOD SUCCI 125 MG/2 ML VIAL IV SCH ×4 (05:43→22:59)
[2016-07-07] MEDS: BUDESONIDE 0.5 MG/2 ML NEBU INHALATION SCH (07:07)
[2016-07-07] MEDS: ALBUTEROL NEBULIZED 2.5 MG/3 ML INHALATION SCH ×4 (07:07→21:43)
[2016-07-07 08:04] VITALS: RESP 18
[2016-07-07] MEDS: VENLAFAXINE HCL ER 150 MG CAP PO SCH (08:56)
[2016-07-07] MEDS: ARIPiprazole 2 MG TAB PO SCH (08:56)
[2016-07-07] MEDS: LISINOPRIL 20 MG TAB PO SCH (08:56)
[2016-07-07] MEDS: ceFAZolin 2 GM in SODIUM CHLORIDE 0.9% 100 ML IVPB SCH ×3 (08:56→22:59)
[2016-07-07] MEDS: CHOLESTYRAMINE (WITH SUGAR) 4 GM PACKET PO SCH ×4 (08:56→17:04)
[2016-07-07] MEDS: buPROPion XL 300 MG TAB.ER.24H PO SCH (08:56)
[2016-07-07] MEDS: DOXAZOSIN 1 MG TAB PO SCH (08:56)
[2016-07-07] MEDS: clonazePAM 0.5 MG TAB PO SCH (08:56)
[2016-07-07] MEDS: ALLOPURINOL 300 MG TAB PO SCH (08:56)
[2016-07-07] MEDS: FUROSEMIDE 10 MG/ML 4 ML VIAL IV SCH ×2 (08:56→21:20)
[2016-07-07] MEDS: HYDROCHLOROTHIAZIDE 50 MG TAB PO SCH (08:57)
[2016-07-07] MEDS: TRIAMCINOLONE 0.1% CREAM 80 GM TUBE TOPICAL SCH ×2 (08:58→21:21)
[2016-07-07] MEDS: HYDROCORTISONE 1% CREAM 30 GM TUBE TOPICAL SCH ×4 (08:58→21:21)
[2016-07-07] MEDS ORDERED: LEVOFLOXACIN 500 MG TAB PO SCH (09:00)
[2016-07-07] MEDS ORDERED: ERGOCALCIFEROL 50,000 UNIT CAP PO SCH (09:00)
[2016-07-07] MEDS ORDERED: DIPHENOX-ATROP 2.5-0.025 MG 1 EACH TAB PO PRN (10:28)
[2016-07-07] MEDS ORDERED: ALPRAZolam 0.25 MG TAB PO PRN (10:29)
[2016-07-07] MEDS ORDERED: TEMAZEPAM 15 MG CAP PO PRN (10:29)
[2016-07-07 11:46] LABS: Glucose,Whole Blood 131 mg/dL (75-99)
[2016-07-07] MEDS: INSULIN LISPRO (humaLOG) 300 UNIT/3 ML VIAL SQ SCH ×3 (12:31→21:20)
--- NOTE | 2016-07-07 13:33 | P.CNPUL ---
History of Present Illness Consult date: 07/07/16 Requesting physician: Crystal Jean Reason for consult: COPD Chief complaint: Shortness of breath History of present illness: This is a 61-year-old male being evaluated and examined today for pulmonary services on the fifth floor. This patient came into the emergency room initially with shortness of breath, and he felt like he was given a pass out at home. Patient has a known history of extensive COPD with a chronic cough. Patient also presented with bilateral lower extremity cellulitis. A CT of the chest was performed and revealed severe emphysema, and extensive bullous lung disease. Upon examination the patient is resting up in bed denies any productive cough at this time. States his breathing has improved slowly in the last 24 hours. Review of Systems 14 point review of systems was completed and is negative other than what is noted in the HPI. Past Medical History Past Medical History: Asthma, Chest Pain / Angina, COPD, Hypertension, Osteoarthritis (OA), Respiratory Disorder Additional Past Medical History / Comment(s): O2 AT HOME 5 LITERS N/C CONT, MIGRAINES, obesity, KODI LOWER LEG CELLULITIS. History of Any Multi-Drug Resistant Organisms: None Reported Past Surgical History: Appendectomy, Orthopedic Surgery Additional Past Surgical History / Comment(s): RT EYE SX, RT ANKLE BROKEN 1977 HAD ORIF PLATE/PINS Past Anesthesia/Blood Transfusion Reactions: No Reported Reaction Additional Past Anesthesia/Blood Transfusion Reaction / Comment(s): CLAUSTERPHOBIA Past Psychological History: Anxiety, Depression Additional Psychological History / Comment(s): PT CURRENTLY LIVING AT [facility]. USES WALKER/POWER CHAIR BUT STATED ONLY ABLE TO AMBULATE VERY SHORT DISTANCES AND GETS SOB WITH EXERTION. PT IS RETIRED FROM [employer]. Smoking Status: Former smoker Past Alcohol Use History: None Reported Additional Past Alcohol Use History / Comment(s): STARTED SMOKING AT AGE 11 SMOKED 2 PPD QUIT 2010, HASN'T CONSUMED ETOH SINCE AGE 28(STATED WAS AN ALCOHOLIC FROM AGE [age]) Past Drug Use History: None Reported - Past Family History Father Family Medical History: Diabetes Mellitus Additional Family Medical History / Comment(s): IN 2004 COMPLICATIONS FROM DIABETES Mother Family Medical History: Unable to Obtain Additional Family Medical History / Comment(s): AGE 56 OF FEMALE CA Medications and Allergies Home Medications Medication Instructions Recorded Confirmed Type ARIPiprazole [Abilify] 2 mg PO DAILY 12/08/13 07/06/16 History Albuterol Inhaler [Ventolin Hfa 2 puff INHALATION RT-QID 12/08/13 07/06/16 History Inhaler] Lisinopril [Zestril] 20 mg PO DAILY 12/08/13 07/06/16 History Theophylline 24 Hour [Mark-24] 400 mg PO HS 12/08/13 07/06/16 History Venlafaxine HCl ER [Effexor XR] 150 mg PO DAILY 12/08/13 07/06/16 History Hydrochlorothiazide [Hydrodiuril] 50 mg PO DAILY 07/09/15 07/06/16 History Allopurinol [Zyloprim] 300 mg PO DAILY 11/11/15 07/06/16 History Furosemide [Lasix] 40 mg PO DAILY 11/11/15 07/06/16 History buPROPion HCL [Wellbutrin XL] 300 mg PO DAILY 11/11/15 07/06/16 History clonazePAM [KlonoPIN] 0.5 mg PO QAM 12/09/15 07/06/16 History clonazePAM [KlonoPIN] 2 mg PO HS 12/09/15 07/06/16 History Ergocalciferol (Vitamin D2) 50,000 unit PO Q30D 01/12/16 06/19/16 History [Drisdol] Butalbit/Acetamin/Caff/Codeine 1 cap PO Q6H PRN 03/24/16 06/19/16 History [Fioricet-Cod [id number] Cap] Hydrocortisone Cream 1 applic TOPICAL QID 06/12/16 07/06/16 History [Hydrocortisone 2.5% Cream] Triamcinolone 0.1% Cream [Kenalog] 1 applicatio TOPICAL BID 06/12/16 07/06/16 History metroNIDAZOLE 0.75% CREAM 1 applic TOPICAL BID 06/12/16 07/06/16 History traZODone HCL 300 mg PO HS 06/12/16 07/06/16 History Allergies Allergy/AdvReac Type Severity Reaction Status Date / Time No Known Allergies Allergy Verified 07/06/16 13:10 Physical Exam Vitals: Vital Signs Temp Pulse Pulse Resp BP BP Pulse Ox 07/07/16 11:29 86 07/07/16 11:17 80 07/07/16 07:25 82 07/07/16 07:10 76 95 07/07/16 07:00 98.1 F 77 18 132/60 95 07/06/16 23:00 97.2 F L 82 16 114/62 98 07/06/16 20:10 108 H 07/06/16 19:51 108 H 94 L 07/06/16 18:46 98.6 F 108 H 20 113/77 96 Intake and Output 07/06/16 07/07/16 07/07/16 22:59 06:59 14:59 Intake Total 590 800 800 Output Total 675 1500 Balance -85 -700 800 Intake: IV 800 Sodium Chloride 0.9% 1, 700 000 ml @ 100 mls/hr IV . Q10H STA Rx#:[id number] ceFAZolin 2 gm In Sodium 100 Chloride 0.9% 100 ml @ 100 mls/hr IVPB Q8HR DARRIUS Rx#:[id number] Intake, IV Titration 800 Amount Sodium Chloride 0.9% 1, 700 000 ml @ 100 mls/hr IV . Q10H STA Rx#:[id number] ceFAZolin 2 gm In Sodium 100 Chloride 0.9% 100 ml @ 100 mls/hr IVPB Q8HR DARRIUS Rx#:[id number] Oral 590 Output: Urine 675 1500 Other: Voiding Method Urinal # Voids 4 Weight 152.861 kg GENERAL EXAM: Alert, active, comfortable in no apparent distress. HEAD: Normocephalic. EYES: Normal reaction of pupils, equal size. NOSE: Clear with pink turbinates. THROAT: No erythema or exudates. NECK: No masses, no JVD. CHEST: No chest wall deformity. LUNGS: Bilateral poor air entry, bases diminished, some scattered rhonchi noted CVS: S1 and S2 normal with no audible mumurs, regular rhythm. ABDOMEN: No hepatosplenomegaly, normal bowel sounds, no guarding or rigidity. EXTREMITIES: Chronic edema noted, pedal pulses palpable. Bilateral legs wrapped , dry and intact. SKIN: Bilateral lower leg cellulitis CENTRAL NERVOUS SYSTEM: No focal deficits, tone is normal in all 4 extremities. Results - Laboratory Findings CBC and BMP: 07/06/16 10:14 07/06/16 10:14 PT/INR, D-dimer PT 10.2 sec (9.0-12.0) 07/06/16 10:14 INR 1.0 (<1.1) 07/06/16 10:14 Abnormal lab findings: Abnormal Labs 07/06/16 07/07/16 23:12 11:45 POC Glucose (mg/dL) 126 H 131 H - Diagnostic Findings Chest x-ray: report reviewed, image reviewed CT scan - chest: report reviewed, image reviewed Assessment and Plan Plan: Assessment Left-sided pneumonia Severe emphysema Extensive bullous lung disease Acute exacerbation of COPD Cellulitis of bilateral legs Pulmonary nodule in the right upper lobe Medications have been reviewed and will be continued as ordered. We will check an alpha 1 antitrypsin level. Continue with antibiotics and IV steroids. Continue with pulmonary hygiene, incentive spirometer and nebulizer treatments. We will continue to monitor labs and results, and adjust treatment as necessary. I performed an examination of the patient and discussed their management with the nurse practitioner. I have reviewed the nurse practitioner's note and agree with the documented findings and plan of care.
[2016-07-07] MEDS ORDERED: AZITHROMYCIN 500 MG in SODIUM CHLORIDE 0.9% 250 ML IVPB SCH (14:00)
[2016-07-07] MEDS ORDERED: LEVOFLOXACIN 750 MG TAB PO SCH (16:00)
[2016-07-07] MEDS: SODIUM CHLORIDE 0.9% 1,000 ML IV STA (16:12)
[2016-07-07 16:46] LABS: Glucose,Whole Blood 174 mg/dL (75-99)
[2016-07-07 20:15] LABS: Glucose,Whole Blood 139 mg/dL (75-99)
--- NOTE | 2016-07-07 20:51 | CONS ---
DATE OF CONSULTATION: 07/07/2016. REASON FOR CONSULTATION: Bilateral lower extremity cellulitis. HISTORY OF PRESENT ILLNESS: The patient is a 61 -year-old male service well known to my service from previous admission admitted for lower extremity cellulitis and as well as C. Dif colitis. Possible was brought into the ER by the EMS after the patient called in because of significant shortness of breath. The patient said he was starting to do some chores inside the house when he felt almost passed out, hard to breathe so he called EMS in. The patient was subsequently brought into the ER by the EMS. The patient did have a chest x-ray which was read with chronic parenchymal changes and small left pleural effusion with 1 cm nodule in the right upper lobe. The patient was noticed to have lower extremity swelling and redness. He was started on Levaquin. I was asked to see the patient for further recommendation regarding antibiotic therapy. Patient has chronic venous stasis and cellulitis of his right lower extremity. Patient today has been applying some kind of cream to it. He is not sure about the name and has been wrapped up. The patient did have some dull pain to the leg 2 to 3 out of 10 but no radiation, no skin breakdown and no drainage. The patient denies having any abdominal pain. He has some shortness of breath with exertion and did have cough bringing up sputum but no hemoptysis. Denies any urinary symptoms and no fever or chills. REVIEW OF SYSTEMS: CONSTITUTIONAL: Positive for weakness, but no fever or chills. EYES: No complaint. ENT: No complaint. RESPIRATORY: As per HPI. CARDIOVASCULAR: No complaint. GENITOURINARY: no complaint. GASTROINTESTINAL No complaint. INTEGUMENTARY: As per HPI. PSYCHOLOGICAL: No complaint. ENDOCRINAL: No complaint. MUSCULOSKELETAL: No complaint. PAST MEDICAL HISTORY: COPD, asthma, history of angina, hypertension, osteoarthritis, lower extremity cellulitis, C. dif colitis and pneumonia. PAST SURGICAL HISTORY: Right ankle fracture repair and appendectomy. SOCIAL HISTORY: The patient quit smoking back in 2010, used to smoke significantly prior to that. No drinking or drug use. FAMILY HISTORY: Father with history of diabetes, complication of diabetes and one of cancer, unknown type of cancer. ALLERGIES: No drug allergies. Medications currently include the patient is on: 1. [place]. 2. Ventolin. 3. DuoNeb. 4. Zyloprim. 5. Xanax. 6. Abilify. 7. Pulmicort. 8. Wellbutrin. 9. Questran. 10. Klonopin. 11. Lumbar. 12. Lomotil. 13. Cardura. 14. Vitamin D2. 15. Lasix. 16. Heparin. 17. Hydrochlorothiazide. 18. Humalog. 19. Zestril. 20. Solu-Medrol. 21. Levaquin. 22. Seroquel. 23. Restoril. 24. Desyrel. 25. Effexor. 26. Kenalog. On examination, blood pressure is 91/58 with a pulse of 90, temperature 97.8. He is 96% on 6 L nasal cannula. General description is a middle-aged male up in the bed in no distress. No tachypnea or accessory muscle of respiration use. HEENT examination showed no pallor or scleral icterus. Oral mucous membrane is dry. NECK: Trachea is central. No thyromegaly. LUNGS: Unlabored breathing. The patient has wheeze. HEART: S1, S2. Regular rate and rhythm. ABDOMEN: Soft. EXTREMITIES: Bilateral lower extremities with erythema, mostly of the right leg, slightly warm to touch. No skin breakdown. No drainage. NEUROLOGICAL: The patient awake, alert and oriented. Mood and affect normal. LABS: Hemoglobin is 14. White count 12.4 with INR 1.0, BUN of 15, creatinine 0.88, liver enzymes normal. Chest x-ray as mentioned earlier. He did have a CT of the chest, which was showing emphysematous bullous nodules but no consolidation. DIAGNOSTIC IMPRESSION AND PLAN: 1. Patient with bilateral lower extremity cellulitis in a patient who did have venous stasis but no ulcer was noticed more likely diffuse swelling and likely streptococcal disease. 2. The patient with shortness of breath more likely underlying chronic obstructive pulmonary disease in a patient with tracheobronchitis and with no evidence of pneumonia seen on the CT of the chest. PLAN: 1. Cefazolin 2 gm every eight hours for his underlying cellulitis. As for local care, will recommend Armaan wrap only from just above the toe to below the knee. 2. Clinical suspicion low for pneumonia, hence we will discontinue Rocephin and Azithromycin. Take a short course of Levaquin in addition to the bronchodilator and steroid for underlying chronic obstructive pulmonary disease. 3. Will follow up with clinical condition and cultures to further adjust the medication if needed. Thank you for this consultation. We will follow this patient along with you. ARMIDA
[2016-07-07] MEDS: clonazePAM 1 MG TAB PO SCH (21:19)
[2016-07-07] MEDS: THEOPHYLLINE 24 HOUR 400 MG CAP.ER.24H PO SCH (21:19)
[2016-07-07] MEDS: QUEtiapine 100 MG TAB PO SCH (21:20)
[2016-07-07] MEDS: HEPARIN SODIUM,PORCINE 5,000 UNIT/ML 1 ML VIAL SQ SCH (21:20)
[2016-07-07] MEDS: traZODone HCL 100 MG TAB PO SCH (21:21)
[2016-07-07] MEDS: FORMOTEROL FUMARATE 20 MCG/2 ML NEBU INHALATION SCH (21:43)
[2016-07-07] MEDS: BUDESONIDE 1 MG/2 ML NEBU INHALATION SCH (21:43)
[2016-07-07 22:49] LABS: Appearance,Urine Clear (Clear); Bilirubin,Urine Negative (Negative); Glucose,Urine (UA) Negative (Negative); Ketones,Urine Negative (Negative); Leukocyte Esterase,Urine Negative (Negative); Nitrite,Urine Negative (Negative); PH, Urine 6.5 (5.0-8.0); Particle Count 161; Protein,Urine Negative (Negative); RBC,Urine 1 /hpf (0-5); Specific Gravity,Urine 1.002 (1.001-1.035); UA Billing (MACRO vs. MICRO) MICRO; Urobilinogen,Urine <2.0 mg/dL (<2.0); WBC,Urine <1 /hpf (0-5)
[2016-07-08] MEDS: HYDROcodone/APAP 7.5-325MG 1 EACH TAB PO PRN ×2 (04:34→10:22)
--- NOTE | 2016-07-08 05:37 | HP ---
DATE OF ADMISSION: DATE OF SERVICE: 07/07/2016 Chief complaints are cough and shortness of breath and sputum. HISTORY OF PRESENT ILLNESS: This 61-year-old gentleman with a past medical history of multiple medical problems including asthma, COPD, , history of DJD, hypertension, history of chronic hypoxic respiratory failure, on home O2 five liters, anxiety and depression being followed by Dr. Webb in the outpatient setting, was admitted to the emergency room with the complaints of significant shortness of breath, which increased to more last night, cough with sputum. The patient felt as if was going to pass out. There is no history of headache, loss of consciousness or seizures. After admission, CAT scan and chest x-ray was done, right-sided pneumonia was suspected. The CAT scan also showed severe emphysema and as well as severe multiple bullous emphysematous lesions also. There is no history of any fever, rigors, chills. No history of headache, loss of consciousness or seizures. PAST MEDICAL HISTORY: Asthma, COPD, history of chest pain, angina, hypertension, DJD, history of chronic hypoxic respiratory failure on home oxygen 5 L. Anxiety, depression. Medications prior to admission include home medications are: 1. Trazodone 300 mg q.h.s. 2. Metronidazole 0.75 cream topically b.i.d. 3. Klonopin 0.5 mg q.a.m. and 2 mg q.h.s. 4. Wellbutrin XL 300 mg p.o. daily. 5. Effexor XR 150 mg p.o. daily. 6. Kenalog one application b.i.d. 7. Mark-24, 400 mg q.h.s. 8. Seroquel 100 mg q.h.s. 9. Zestril 20 mg p.o. daily. 10. Hydrocortisone 2.5 q.i.d. 11. HydroDIURIL 50 mg daily. 12. [place] 1 tablet q.6 p.r.n. 13. Lasix 40 mg daily. 14. Cardura 1 mg p.o. daily. 15. Questran 4 grams t.i.d. between meals. 16. Zyloprim 300 mg p.o. daily. 17. Ventolin 2.5 q.i.d. 18. Ventolin HFA 2 puffs q.i.d. 19. Abilify 2 mg daily. 20. Vitamin D2, 50,000 q.30 days. 21. Lomotil 1 tablet q.i.d. p.r.n. 22. Fioricet capsule p.o. q.6 p.r.n. ALLERGIES: None. FAMILY HISTORY: History of diabetes in the family. SOCIAL HISTORY: Previous history of smoking. No history of alcohol intake. No history of current smoker. REVIEW OF SYSTEMS: ENT: No diminished hearing or diminished vision. CARDIOVASCULAR: No angina or palpitations. RESPIRATORY: As mentioned earlier. GI: No nausea. : No dysuria. NERVOUS SYSTEM: No numbness or weakness. ALLERGY/IMMUNOLOGY: noted MUSCULOSKELETAL: As mentioned earlier. HEMATOLOGY/ONCOLOGY: No history of anemia. ENDOCRINE: No history of diabetes mellitus or hypothyroidism. CONSTITUTIONAL: As mentioned earlier. DERMATOLOGY: Negative. RHEUMATOLOGY: Negative. PSYCHIATRY: As mentioned earlier. PHYSICAL EXAMINATION: The patient is alert and oriented x3. Pulse 82, blood pressure is 132/60, respirations 18, temperature 98.1, pulse ox 95% on 6 L. HEENT: Conjunctivae normal. Oral mucosa moist. NECK: No jugular venous distention. No carotid bruit. No lymph node enlargement. Accessory muscle of respirations acting. Bilateral scattered rhonchi and expiratory wheezing and crackles heard. ABDOMEN: Soft, obese, nontender. No mass palpable. LEGS: Minimal edema bilaterally. Cellulitis also present and some dry skin also present. NERVOUS SYSTEM: Higher function as mentioned earlier. Moves all 4 limbs. No focal motor deficits. LYMPHATICS: No lymphadenopathy of neck, axillae or groin. SKIN: As mentioned earlier JOINTS: No active deforming arthropathy. LABS: WBC 12.4, hemoglobin 14.3. CO2 is 34. Creatine kinase 31. ASSESSMENT: 1. Chronic obstructive pulmonary disease acute exacerbation with acute right-sided bronchopneumonia with . 2. Bilateral cellulitis and leg erythema. 3. Increased WBC. 4. History of asthma, chronic obstructive pulmonary disease. 5. History of chest, angina. 6. Hypertension. 7. History of degenerative joint disease. 8. History of chronic hypoxia hypercarbia respiratory failure on oxygen 5 L nasal cannula at home. 9. History of migraines. 10. Obesity with body mass index of 44.5. 11. Claustrophobia. 12. Anxiety, depression, not otherwise specified. 13. Remote history of EtOH. 14. FULL CODE. RECOMMENDATIONS AND DISCUSSION: This 61-year-old gentleman presented with multiple complex medical issues, we will monitor the patient closely. Continue the current medications and continue symptomatic treatment. Will initiate intensive bronchodilator regimen and as well as empiric antibiotics. Monitor blood sugars closely. Steroids. Resume the home medications. Guarded prognosis because of multiple complex medical issues and will consult Pulmonary and Infectious Disease also. Further recommendations to follow. A copy of dictation forwarded to Dr. Webb. [facility] CENTERKiana
[2016-07-08] MEDS: methylPREDNISolone SOD SUCCI 125 MG/2 ML VIAL IV SCH ×2 (05:45→11:58)
[2016-07-08 07:37] LABS: Glucose,Whole Blood 102 mg/dL (75-99)
[2016-07-08] MEDS: INSULIN LISPRO (humaLOG) 300 UNIT/3 ML VIAL SQ SCH ×2 (08:05→12:12)
[2016-07-08] MEDS: DOXAZOSIN 1 MG TAB PO SCH (08:09)
[2016-07-08] MEDS: buPROPion XL 300 MG TAB.ER.24H PO SCH (08:09)
[2016-07-08] MEDS: ALLOPURINOL 300 MG TAB PO SCH (08:09)
[2016-07-08] MEDS: ceFAZolin 2 GM in SODIUM CHLORIDE 0.9% 100 ML IVPB SCH (08:09)
[2016-07-08] MEDS: ARIPiprazole 2 MG TAB PO SCH (08:09)
[2016-07-08] MEDS: HYDROCHLOROTHIAZIDE 50 MG TAB PO SCH (08:10)
[2016-07-08] MEDS: HEPARIN SODIUM,PORCINE 5,000 UNIT/ML 1 ML VIAL SQ SCH (08:10)
[2016-07-08] MEDS: FUROSEMIDE 10 MG/ML 4 ML VIAL IV SCH (08:10)
[2016-07-08] MEDS: LISINOPRIL 20 MG TAB PO SCH (08:11)
[2016-07-08] MEDS: VENLAFAXINE HCL ER 150 MG CAP PO SCH (08:11)
[2016-07-08] MEDS: clonazePAM 0.5 MG TAB PO SCH (08:22)
[2016-07-08] MEDS: HYDROCORTISONE 1% CREAM 30 GM TUBE TOPICAL SCH (08:23)
[2016-07-08] MEDS: TRIAMCINOLONE 0.1% CREAM 80 GM TUBE TOPICAL SCH (08:24)
[2016-07-08 08:27] VITALS: BP 114/68; TEMP 97.7
[2016-07-08] MEDS: BUDESONIDE 1 MG/2 ML NEBU INHALATION SCH (08:40)
[2016-07-08] MEDS: ALBUTEROL NEBULIZED 2.5 MG/3 ML INHALATION SCH ×2 (08:40→11:49)
[2016-07-08] MEDS: FORMOTEROL FUMARATE 20 MCG/2 ML NEBU INHALATION SCH (08:41)
[2016-07-08 08:48] LABS: CHCM 31.9; HCT 43.4 % (39.0-53.0); HDW 2.42; HGB 13.6 gm/dL (13.0-17.5); MCH 29.7 pg (25.0-35.0); MCHC 31.4 g/dL (31.0-37.0); MCV 94.4 fL (80.0-100.0); Mean Platelet Volume 7.1; RDW 14.6 % (11.5-15.5); WBC 18.6 k/uL (3.8-10.6); WBC (Perox) 18.96
[2016-07-08 08:52] LABS: Anion Gap 10 mmol/L; Blood Urea Nitrogen 23 mg/dL (9-20); Calcium 8.8 mg/dL (8.4-10.2); Carbon Dioxide 31 mmol/L (22-30); Chloride 97 mmol/L (98-107); Glucose 74 mg/dL (74-99); Non-African American GFR(MDRD) >60 (>60 ml/min/1.73 sqM); Potassium 4.2 mmol/L (3.5-5.1); Sodium 138 mmol/L (137-145)
[2016-07-08] MEDS: CHOLESTYRAMINE (WITH SUGAR) 4 GM PACKET PO SCH (09:59)
[2016-07-08 10:55] LABS: Add Differential Manual Differential
[2016-07-08 10:59] LABS: Band Neutrophils % 0.5 %; Metamyelocytes % 0.5 %; Myelocytes % 0.5 %; Nucleated Red Blood Cells 0 /100 WBC (0-0); Total Cells Counted 200
[2016-07-08 11:23] LABS: Glucose,Whole Blood 96 mg/dL (75-99)
[2016-07-08 11:50] VITALS: PULSE 84
--- NOTE | 2016-07-08 12:09 | PN ---
Uday Adorno was seen on 07/08/2016. He has been hemodynamically stable. He continues to have some shortness of breath and swelling and erythema of his lower extremities. On physical examination, his blood pressure is 114/68, respiratory rate 18, pulse rate 85, temperature 97.7. O2 sat on 5 L by nasal cannula is 96%. HEENT is unremarkable. Chest reveals decreased breath sounds in the bases. Cardiovascular system reveals an S1, S2. Abdomen is soft. There is 2+ pedal edema with erythema. Urinalysis is showing moderate blood. Influenza A and B are negative. IMPRESSION: 1. Lower extremity cellulitis. 2. Obesity with possible obesity hypoventilation syndrome and obstructive sleep apnea for which he would benefit from outpatient workup. 3. Tracheobronchitis. Continue antibiotics. Increase activity level. Continue Pulmicort and bronchodilators. Optimize his fluid status. Continue IV steroids at this point. If he is otherwise stable, may switch to oral steroids later today or tomorrow.
--- NOTE | 2016-07-08 17:25 | PN ---
DATE OF SERVICE: 07/08/2016 Reason for follow-up is bilateral lower extremity cellulitis. INTERVAL HISTORY: The patient is afebrile. He is breathing more comfortably. Denies significant chest pain. Occasional cough. No abdominal pain, nausea. Did mention the legs are getting better. No abdominal pain or any diarrhea. He is insisting on going home. On examination, blood pressure is 114/68 with a pulse of 85, temperature 97.7. He is 96% on 5-L nasal cannula. General description is a middle-age male up in the bed in no distress. RESPIRATORY SYSTEM: Unlabored breathing with decreased breath sounds. HEART: S1, S2 regular rate and rhythm. ABDOMEN: Soft. No tenderness. LOWER EXTREMITIES: Currently no drainage on the dressing. LABS: Hemoglobin is 13.6, white count 18.6, BUN of 23, creatinine 0.15. DIAGNOSTIC IMPRESSION AND PLAN: Patient with bilateral lower extremity cellulitis in the patient did have diffuse swelling and likely streptococal disease. Plan will be to finish therapy with p.o. Keflex 500 mg daily for about a week along with Armaan wraps to the legs to keep the swelling down. MTDD
--- NOTE | 2016-07-09 11:36 | DS ---
DATE OF ADMISSION: 07/06/2016 DATE OF DISCHARGE: 07/08/2016 FINAL DIAGNOSES: 1. Chronic obstructive pulmonary disease, acute exacerbation, with acute right sided bronchopneumonia with severe acute respiratory syndrome. 2. Bilateral leg cellulitis and leg erythema. 3. Increased WBC. 4. History of asthma, chronic obstructive pulmonary disease. 5. History of chest pain, angina. 6. Hypertension, essential. 7. History of degenerative joint disease. 8. History of chronic hypoxic hypercarbic respiratory failure on oxygen 5 liters nasal cannula at home. 9. History of migraines. 10. Obesity with body mass index of 44.5. 11. Claustrophobia. 12. Anxiety, depression, not otherwise specified. 13. Remote history of ETOH. 14. FULL CODE. DISCHARGE DISPOSITION: The patient will be discharged in a stable condition with guarded prognosis. Discharge cleared by pulmonary and the patient is extremely keen on going home. HISTORY OF PRESENT ILLNESS: This 61-year-old gentleman with a past medical history of multiple medical problems being followed by Dr. Webb in the outpatient setting was admitted with COPD acute exacerbation as well as possible bronchopneumonia and bilateral leg cellulitis. Patient treated with bronchodilators, steroids and antibiotics. The patient improved significantly. Infectious disease and pulmonary saw the patient. On exam, vitals are stable. CARDIOVASCULAR: S1, S2 muffled. ABDOMEN: Soft. CENTRAL NERVOUS SYSTEM: No focal deficits. Legs: Bilateral cellulitis. Chest bilateral scattered rhonchi and crackles. DISCHARGE ADVICE AND MEDICATIONS: 1. Diet is cardiac. 2. Activity limited until follow-up. 3. Follow-up with Dr. Webb in 2 to 3 days. 4. Follow-up with Dr. Crooks as recommended. 5. Wound care to be continued. 6. Abilify 2 mg p.o. daily. 7. Ventolin HFA 2 puffs q.i.d. and p.r.n. 8. Albuterol nebulizer 2.5 q.i.d. and p.r.n. 9. Zyloprim 300 mg daily. 10. Butalbital p.r.n. as before. 11. Keflex 500 mg q.8 for 10 days. 12. Cholestyramine 4 grams t.i.d. before meals. 13. Imodium 1 p.o. q.i.d. p.r.n. 14. Cardura 1 mg p.o. daily. 15. Vitamin D2 50,000 daily. 16. Lasix 40 mg p.o. daily. 17. Hydrocortisone 7.5 mg q.6h p.r.n. 18. HydroDIURIL 50 mg p.o. daily. 19. Hydrocortisone cream one application topically. 20. Levaquin 750 p.o. daily for 5 days. 21. Zestril 20 mg p.o. daily. 22. Prilosec 20 mg with breakfast. 23. Seroquel 100 mg q.h.s. 24. Mark-24 400 mg p.o. q.h.s. 25. Kenalog one application topically p.r.n. 26. Effexor XR 150 mg p.o. daily. 27. Wellbutrin XL 300 mg p.o. daily. 28. Klonopin 2 mg p.o. q.h.s. and 1.5 mg in the morning. 29. Metronidazole 0.75 cream one application topically. 30. Prednisone taper so that will be 40 mg daily for 3 days, 30 for 3 days, 20 for 3 days, 10 for 3 days and then discontinue. 31. Trazodone 300 mg p.o. at bedtime. Once again, the patient will be discharged in a stable condition with guarded prognosis.
== END 2016-07-08 12:45 | disposition home health service (06) | DRG 190 ==
LOC: EC 09:56 → 5MS5E 18:12
PROVIDERS: ADMIT Internal Medicine; ATTEND Internal Medicine
DX: J44.0 Chronic obstructive pulmonary disease with (acute) lower respiratory infection (principal); J12.81 Pneumonia due to SARS-associated coronavirus; J96.11 Chronic respiratory failure with hypoxia; L03.115 Cellulitis of right lower limb; L03.116 Cellulitis of left lower limb; Z68.41 Body mass index [BMI] 40.0-44.9, adult; J96.12 Chronic respiratory failure with hypercapnia; E66.9 Obesity, unspecified; F32.9 Major depressive disorder, single episode, unspecified; F40.240 Claustrophobia; I10 Essential (primary) hypertension; I87.8 Other specified disorders of veins; J44.1 Chronic obstructive pulmonary disease with (acute) exacerbation; J45.909 Unspecified asthma, uncomplicated; Z79.899 Other long term (current) drug therapy; Z83.3 Family history of diabetes mellitus; Z87.891 Personal history of nicotine dependence; Z99.81 Dependence on supplemental oxygen; F10.21 Alcohol dependence, in remission; M19.90 Unspecified osteoarthritis, unspecified site; Z87.01 Personal history of pneumonia (recurrent); R91.1 Solitary pulmonary nodule; G43.909 Migraine, unspecified, not intractable, without status migrainosus
CPT/HCPCS: 36415; 71020; 71260; 80048; 80053; 81001; 82103; 82550; 82553; 83735; 83880; 84484; 85025; 85610; 85730; 87040; 87502; 93005; 94640; 94644; 94760; 96361; 96374; 96375; 99285

== ENCOUNTER 2016-07-18 20:17 | Emergency (ER) | payer MEDICARE, OTHER ==
[2016-07-18] MEDS ORDERED: IPRATROPIUM-ALBUTEROL 3 ML NEB INHALATION STA (20:30)
[2016-07-18] MEDS ORDERED: ALBUTEROL NEBULIZED 2.5 MG/3 ML INHALATION STA (20:30)
[2016-07-18] MEDS ORDERED: predniSONE 20 MG TAB PO STA (20:31)
--- NOTE | 2016-07-18 20:33 | ED ---
SOB HPI - General Stated Complaint: Weakness Time Seen by Provider: 07/18/16 20:22 - History of Present Illness Initial Comments: This patient is 61-year-old man who presents with complaint of being short of breath. Patient states it is been getting worse over the past day. He states feels same as previous COPD exacerbations. He noted that he was having some wheezing. In addition he has had occasional nonproductive cough. Patient denies chest pain. He is not having any change in his leg swelling. He states there is some redness bilaterally to the legs but this is been present for a while. Complaint: shortness of breath Onset/Timin -: days(s) Severity: moderate Consistency: constant Improves With: bronchodilators, upright position Worsens With: lying flat Known History Of: COPD Associated Symptoms: denies other symptoms Treatments Prior to Arrival: oxygen - Related Data Home Medications Medication Instructions Recorded Confirmed ARIPiprazole [Abilify] 2 mg PO DAILY 12/08/13 07/18/16 Albuterol Inhaler [Ventolin Hfa 2 puff INHALATION RT-QID 12/08/13 07/18/16 Inhaler] Lisinopril [Zestril] 20 mg PO DAILY 12/08/13 07/18/16 Theophylline 24 Hour [Mark-24] 400 mg PO HS 12/08/13 07/18/16 Venlafaxine HCl ER [Effexor XR] 150 mg PO DAILY 12/08/13 07/18/16 Hydrochlorothiazide [Hydrodiuril] 50 mg PO DAILY 07/09/15 07/18/16 Allopurinol [Zyloprim] 300 mg PO DAILY 11/11/15 07/18/16 Furosemide [Lasix] 40 mg PO DAILY 11/11/15 07/18/16 buPROPion HCL [Wellbutrin XL] 300 mg PO DAILY 11/11/15 07/18/16 clonazePAM [KlonoPIN] 0.5 mg PO QAM 12/09/15 07/18/16 clonazePAM [KlonoPIN] 2 mg PO HS 12/09/15 07/18/16 Ergocalciferol (Vitamin D2) 50,000 unit PO Q30D 01/12/16 07/18/16 [Drisdol] Butalbit/Acetamin/Caff/Codeine 1 cap PO Q6H PRN 03/24/16 07/18/16 [Fioricet-Cod 67-199-83-30 Cap] Hydrocortisone Cream 1 applic TOPICAL QID 06/12/16 07/18/16 [Hydrocortisone 2.5% Cream] Triamcinolone 0.1% Cream [Kenalog] 1 applicatio TOPICAL BID 06/12/16 07/18/16 metroNIDAZOLE 0.75% CREAM 1 applic TOPICAL BID 06/12/16 07/18/16 traZODone HCL 300 mg PO HS 06/12/16 07/18/16 predniSONE See Taper PO DAILY 07/18/16 07/18/16 Previous Rx's Medication Instructions Recorded HYDROcodone/APAP 7.5-325MG [[place] 1 tab PO Q6HR PRN #30 tab 07/12/15 7.5-325] QUEtiapine [SEROquel] 100 mg PO HS tab 08/24/15 Doxazosin [Cardura] 1 mg PO DAILY tab 12/11/15 Cholestyramine (with Sugar) 4 gm PO TID BETWEEN MEALS #90 06/23/16 [Questran Packet] packet Diphenox-Atrop 2.5-0.025 mg 1 tab PO QID PRN #30 tablet 06/23/16 [Lomotil] Albuterol Nebulized [Ventolin 2.5 mg INHALATION RT-QID #0 nebu 07/08/16 Nebulized] Omeprazole [PriLOSEC] 20 mg PO AC-BRKFST #15 cap 07/08/16 Doxycycline Hyclate 100 mg PO BID #14 tab 07/18/16 predniSONE 20 mg PO BID #8 tab 07/18/16 Allergies Allergy/AdvReac Type Severity Reaction Status Date / Time No Known Allergies Allergy Verified 07/18/16 21:17 Review of Systems ROS Statement: Those systems with pertinent positive or pertinent negative responses have been documented in the HPI. ROS Other: All systems not noted in ROS Statement are negative. Constitutional: Denies: fever, chills, weakness Respiratory: Reports: cough, dyspnea, wheezes Cardiovascular: Reports: dyspnea on exertion, orthopnea, edema (Chronic). Denies: chest pain, palpitations, syncope Gastrointestinal: Denies: abdominal pain, vomiting, melena, hematochezia Genitourinary: Denies: dysuria Musculoskeletal: Denies: back pain Skin: Denies: rash, lesions, change in color Neurological: Denies: headache, weakness Past Medical History Past Medical History: Asthma, Chest Pain / Angina, COPD, Hypertension, Osteoarthritis (OA), Respiratory Disorder Additional Past Medical History / Comment(s): O2 AT HOME 5 LITERS N/C CONT, MIGRAINES, obesity, KODI LOWER LEG CELLULITIS. History of Any Multi-Drug Resistant Organisms: None Reported Past Surgical History: Appendectomy, Orthopedic Surgery Additional Past Surgical History / Comment(s): RT EYE SX, RT ANKLE BROKEN 1977 HAD ORIF PLATE/PINS Past Anesthesia/Blood Transfusion Reactions: No Reported Reaction Additional Past Anesthesia/Blood Transfusion Reaction / Comment(s): CLAUSTERPHOBIA Past Psychological History: Anxiety, Depression Additional Psychological History / Comment(s): PT CURRENTLY LIVING AT [facility]. USES WALKER/POWER CHAIR BUT STATED ONLY ABLE TO AMBULATE VERY SHORT DISTANCES AND GETS SOB WITH EXERTION. PT IS RETIRED FROM [employer]. Smoking Status: Former smoker Past Alcohol Use History: None Reported Additional Past Alcohol Use History / Comment(s): STARTED SMOKING AT AGE 11 SMOKED 2 PPD QUIT 2010, HASN'T CONSUMED ETOH SINCE AGE 28(STATED WAS AN ALCOHOLIC FROM AGE [age]) Past Drug Use History: None Reported - Past Family History Father Family Medical History: Diabetes Mellitus Additional Family Medical History / Comment(s): IN 2004 COMPLICATIONS FROM DIABETES Mother Family Medical History: Unable to Obtain Additional Family Medical History / Comment(s): AGE 56 OF FEMALE [place] General Exam General appearance: alert, obese Head exam: Present: atraumatic, normocephalic ENT exam: Present: normal oropharynx Neck exam: Present: normal inspection, full ROM Respiratory exam: Present: wheezes, decreased breath sounds, prolonged expiratory. Absent: rales, rhonchi, stridor, accessory muscle use Cardiovascular Exam: Present: regular rate, normal rhythm, normal heart sounds. Absent: systolic murmur, diastolic murmur, rubs, gallop GI/Abdominal exam: Present: soft. Absent: distended, tenderness, guarding, rebound, mass Extremities exam: Present: pedal edema, other (Chronic venous stasis change bilaterally.). Absent: calf tenderness Back exam: Present: normal inspection. Absent: CVA tenderness (R), CVA tenderness (L) Neurological exam: Present: alert Skin exam: Present: warm, dry, intact, other (Chronic stasis changes) Course Vital Signs 07/18/16 07/18/16 07/18/16 20:44 20:55 21:08 Pulse Rate 100 97 96 Respiratory 20 Rate Blood Pressure 121/74 O2 Sat by Pulse 98 Oximetry Medical Decision Making - Lab Data Result diagrams: 07/18/16 20:40 07/18/16 20:40 Lab Results 07/18/16 07/18/16 07/18/16 Range/Units 20:40 20:40 20:40 WBC 20.1 H (3.8-10.6) k/uL RBC 4.33 (4.30-5.90) m/uL Hgb 12.9 L (13.0-17.5) gm/dL Hct 41.2 (39.0-53.0) % MCV 95.1 (80.0-100.0) fL MCH 29.8 (25.0-35.0) pg MCHC 31.3 (31.0-37.0) g/dL RDW 15.0 (11.5-15.5) % Plt Count 318 (150-450) k/uL Neutrophils % 85 % Lymphocytes % 4 % Monocytes % 6 % Eosinophils % 3 % Basophils % 1 % Neutrophils # 16.9 H (1.3-7.7) k/uL Lymphocytes # 0.7 L (1.0-4.8) k/uL Monocytes # 1.2 H (0-1.0) k/uL Eosinophils # 0.5 (0-0.7) k/uL Basophils # 0.1 (0-0.2) k/uL PT (9.0-12.0) sec INR (<1.1) APTT (22.0-30.0) sec D-Dimer (<0.60) mg/L FEU Sodium 131 L (137-145) mmol/L Potassium 5.1 (3.5-5.1) mmol/L Chloride 89 L (98-107) mmol/L Carbon Dioxide 33 H (22-30) mmol/L Anion Gap 9 mmol/L BUN 30 H (9-20) mg/dL Creatinine 1.02 (0.66-1.25) mg/dL Est GFR (MDRD) Af Amer >60 (>60 ml/min/1.73 sqM) Est GFR (MDRD) Non-Af >60 (>60 ml/min/1.73 sqM) Glucose 85 (74-99) mg/dL Calcium 9.2 (8.4-10.2) mg/dL Total Bilirubin 0.5 (0.2-1.3) mg/dL AST 26 (17-59) U/L ALT 30 (21-72) U/L Alkaline Phosphatase 103 (38-126) U/L Total Creatine Kinase 229 H (55-170) U/L CK-MB (CK-2) 7.7 H* (0.0-2.4) ng/mL CK-MB (CK-2) Rel Index 3.4 Troponin I <0.012 (0.000-0.034) ng/mL NT-Pro-B Natriuret Pep pg/mL Total Protein 6.6 (6.3-8.2) g/dL Albumin 3.6 (3.5-5.0) g/dL 07/18/16 07/18/16 Range/Units 20:40 20:40 WBC (3.8-10.6) k/uL RBC (4.30-5.90) m/uL Hgb (13.0-17.5) gm/dL Hct (39.0-53.0) % MCV (80.0-100.0) fL MCH (25.0-35.0) pg MCHC (31.0-37.0) g/dL RDW (11.5-15.5) % Plt Count (150-450) k/uL Neutrophils % % Lymphocytes % % Monocytes % % Eosinophils % % Basophils % % Neutrophils # (1.3-7.7) k/uL Lymphocytes # (1.0-4.8) k/uL Monocytes # (0-1.0) k/uL Eosinophils # (0-0.7) k/uL Basophils # (0-0.2) k/uL PT 9.9 (9.0-12.0) sec INR 1.0 (<1.1) APTT 26.0 (22.0-30.0) sec D-Dimer 0.75 H (<0.60) mg/L FEU Sodium (137-145) mmol/L Potassium (3.5-5.1) mmol/L Chloride (98-107) mmol/L Carbon Dioxide (22-30) mmol/L Anion Gap mmol/L BUN (9-20) mg/dL Creatinine (0.66-1.25) mg/dL Est GFR (MDRD) Af Amer (>60 ml/min/1.73 sqM) Est GFR (MDRD) Non-Af (>60 ml/min/1.73 sqM) Glucose (74-99) mg/dL Calcium (8.4-10.2) mg/dL Total Bilirubin (0.2-1.3) mg/dL AST (17-59) U/L ALT (21-72) U/L Alkaline Phosphatase (38-126) U/L Total Creatine Kinase (55-170) U/L CK-MB (CK-2) (0.0-2.4) ng/mL CK-MB (CK-2) Rel Index Troponin I (0.000-0.034) ng/mL NT-Pro-B Natriuret Pep 157 pg/mL Total Protein (6.3-8.2) g/dL Albumin (3.5-5.0) g/dL - EKG Data -: EKG Interpreted by Sc EKG shows normal: sinus rhythm, axis (Normal), intervals (Normal), QRS complexes (Low voltage QRS complexes) Rate: normal (Rate 97 bpm) Interpretation: other (Possible old anterior infarct) Disposition Clinical Impression: COPD (chronic obstructive pulmonary disease) Disposition: HOME SELF-CARE Condition: Fair Instructions: Chronic Bronchitis (ED) Prescriptions: Doxycycline Hyclate 100 mg PO BID #14 tab predniSONE 20 mg PO BID #8 tab Referrals: Emilie Webb DO [Primary Care Provider] - 1-2 days
[2016-07-18 20:53] VITALS: RESP 20
[2016-07-18 21:09] LABS: Basophils # (A) 0.1 k/uL (0-0.2); Basophils % (A) 1 %; CH 30.4; CHCM 32.1; Eosinophils # (A) 0.5 k/uL (0-0.7); Eosinophils % (A) 3 %; HCT 41.2 % (39.0-53.0); HDW 2.33; HGB 12.9 gm/dL (13.0-17.5); Luc # (Auto) 0.52; Luc % (Auto) 3; Lymphocytes # (A) 0.7 k/uL (1.0-4.8); Lymphocytes % (A) 4 %; MCH 29.8 pg (25.0-35.0); MCHC 31.3 g/dL (31.0-37.0); MCV 95.1 fL (80.0-100.0); Mean Platelet Volume 8.1; Monocytes # (A) 1.2 k/uL (0-1.0); Monocytes % (A) 6 %; Neutrophils # (A) 16.9 k/uL (1.3-7.7); Neutrophils % (A) 85 %; RBC 4.33 m/uL (4.30-5.90); WBC 20.1 k/uL (3.8-10.6); WBC (Perox) 19.49
[2016-07-18 21:16] LABS: ALT 30 U/L (21-72); AST 26 U/L (17-59); Alkaline Phosphatase 103 U/L (38-126); Anion Gap 9 mmol/L; Blood Urea Nitrogen 30 mg/dL (9-20); Calcium 9.2 mg/dL (8.4-10.2); Carbon Dioxide 33 mmol/L (22-30); Chloride 89 mmol/L (98-107); Glucose 85 mg/dL (74-99); Non-African American GFR(MDRD) >60 (>60 ml/min/1.73 sqM); Potassium 5.1 mmol/L (3.5-5.1); Sodium 131 mmol/L (137-145); Total Bilirubin 0.5 mg/dL (0.2-1.3); Total Protein 6.6 g/dL (6.3-8.2)
[2016-07-18 21:21] LABS: Creatine Kinase 229 U/L (55-170)
[2016-07-18 21:22] LABS: Prothrombin Time 9.9 sec (9.0-12.0)
[2016-07-18 21:33] LABS: Troponin I <0.012 ng/mL (0.000-0.034)
--- NOTE | 2016-07-18 21:39 | XR ---
EXAMINATION TYPE: XR chest 2V DATE OF EXAM: 07/18/2016 9:26 PM COMPARISON: 07/06/2016 HISTORY: Weakness TECHNIQUE: Frontal and lateral views of the chest are obtained. FINDINGS: There is coarsening of interstitial markings. There is some blunting of left costophrenic angle and pleural thickening on the left lateral chest wall. There are no hilar masses. Heart size is normal. There is no heart failure. There are chest leads. There is a faint 1.5 cm nodular density ov er the right midlung. IMPRESSION: There is bilateral pleural and pulmonary scarring. No heart failure. Possible right pulm onary nodule without change compared to last exam.
[2016-07-18 21:44] LABS: Creatine Kinase MB 7.7 ng/mL (0.0-2.4)
[2016-07-18 22:56] VITALS: BP 132/75; PULSE 109
== END 2016-07-18 23:39 | disposition home or self-care (01) ==
LOC: EC 20:17
DX: J44.9 Chronic obstructive pulmonary disease, unspecified (principal); J45.909 Unspecified asthma, uncomplicated; I10 Essential (primary) hypertension; Z99.81 Dependence on supplemental oxygen; F32.9 Major depressive disorder, single episode, unspecified; F41.9 Anxiety disorder, unspecified; M19.90 Unspecified osteoarthritis, unspecified site; E66.9 Obesity, unspecified; Z87.891 Personal history of nicotine dependence; Z79.899 Other long term (current) drug therapy; Z79.52 Long term (current) use of systemic steroids
CPT/HCPCS: 36415; 94640; 93005; 85379; 83880; 80053; 82550; 82553; 84484; 85025; 85610; 85730; 71020; 99285; J7512

== ENCOUNTER 2016-07-31 18:25 | Emergency (ER) | payer MEDICARE, OTHER ==
[2016-07-31 18:38] VITALS: TEMP 99
[2016-07-31] MEDS ORDERED: ALBUTEROL NEBULIZED 2.5 MG/3 ML INHALATION STA (19:38)
[2016-07-31 20:17] LABS: Basophils # (A) 0.1 k/uL (0-0.2); Basophils % (A) 1 %; CHCM 32.5; Eosinophils # (A) 0.7 k/uL (0-0.7); Eosinophils % (A) 4 %; HCT 42.4 % (39.0-53.0); HDW 2.41; HGB 13.7 gm/dL (13.0-17.5); Luc # (Auto) 0.51; Luc % (Auto) 3; Lymphocytes # (A) 0.9 k/uL (1.0-4.8); Lymphocytes % (A) 5 %; MCHC 32.4 g/dL (31.0-37.0); MCV 92.6 fL (80.0-100.0); Mean Platelet Volume 7.8; Monocytes # (A) 1.1 k/uL (0-1.0); Monocytes % (A) 6 %; Neutrophils % (A) 81 %; RBC 4.58 m/uL (4.30-5.90); RDW 14.4 % (11.5-15.5); WBC 17.3 k/uL (3.8-10.6); WBC (Perox) 17.39
[2016-07-31 20:26] LABS: Anion Gap 5 mmol/L; Blood Urea Nitrogen 21 mg/dL (9-20); Calcium 8.9 mg/dL (8.4-10.2); Carbon Dioxide 32 mmol/L (22-30); Chloride 94 mmol/L (98-107); Glucose 92 mg/dL (74-99); Non-African American GFR(MDRD) >60 (>60 ml/min/1.73 sqM); Potassium 4.4 mmol/L (3.5-5.1); Sodium 131 mmol/L (137-145)
[2016-07-31 20:30] LABS: Appearance,Urine Clear (Clear); Bilirubin,Urine Negative (Negative); Glucose,Urine (UA) Negative (Negative); Ketones,Urine Negative (Negative); Leukocyte Esterase,Urine Negative (Negative); Nitrite,Urine Negative (Negative); Protein,Urine Negative (Negative); Specific Gravity,Urine 1.016 (1.001-1.035); UA Billing (MACRO vs. MICRO) CHEM; Urobilinogen,Urine <2.0 mg/dL (<2.0)
[2016-07-31] MEDS ORDERED: HYDROcodone/APAP 5-325MG 1 EACH TAB PO STA (20:47)
--- NOTE | 2016-07-31 22:29 | ED ---
Psych HPI - General Chief Complaint: Psychiatric Symptoms Stated Complaint: Mental Health Time Seen by Provider: 07/31/16 19:03 Source: patient, EMS Mode of arrival: EMS Limitations: no limitations - History of Present Illness Initial Comments: This patient is a 61-year-old man who comes in to be evaluated for psychiatric purposes. There is a petition that accompanies the patient stating that he threatened the social research assistant at the facility that he is living in. When I discussed things with the patient, he states that the social research assistant made him angry and that he has quite a temperature. He admits to swearing at the social research assistant. He states that he does not wish any harm nor is she planning to attempt to hurt the person. He does admit that he has angry outbursts, but states that this is yelling. MD Complaint: other -: hour(s) Associated Psychiatric Symptoms: none History of same: Yes Quality: intermittent Improves With: none Worsens With: none - Related Data Home Medications Medication Instructions Recorded Confirmed ARIPiprazole [Abilify] 2 mg PO DAILY 12/08/13 07/31/16 Albuterol Inhaler [Ventolin Hfa 2 puff INHALATION RT-QID 12/08/13 07/31/16 Inhaler] Lisinopril [Zestril] 20 mg PO DAILY 12/08/13 07/31/16 Theophylline 24 Hour [Mark-24] 400 mg PO HS 12/08/13 07/31/16 Venlafaxine HCl ER [Effexor XR] 150 mg PO DAILY 12/08/13 07/31/16 Hydrochlorothiazide [Hydrodiuril] 50 mg PO DAILY 07/09/15 07/31/16 Allopurinol [Zyloprim] 300 mg PO DAILY 11/11/15 07/31/16 Furosemide [Lasix] 40 mg PO DAILY 11/11/15 07/31/16 buPROPion HCL [Wellbutrin XL] 300 mg PO DAILY 11/11/15 07/31/16 clonazePAM [KlonoPIN] 0.5 mg PO QAM 12/09/15 07/31/16 clonazePAM [KlonoPIN] 2 mg PO HS 12/09/15 07/31/16 Ergocalciferol (Vitamin D2) 50,000 unit PO Q30D 01/12/16 07/31/16 [Drisdol] Butalbit/Acetamin/Caff/Codeine 1 cap PO Q6H PRN 03/24/16 07/31/16 [Fioricet-Cod 88-255-20-30 Cap] Hydrocortisone Cream 1 applic TOPICAL QID 06/12/16 07/31/16 [Hydrocortisone 2.5% Cream] Triamcinolone 0.1% Cream [Kenalog] 1 applicatio TOPICAL BID 06/12/16 07/31/16 metroNIDAZOLE 0.75% CREAM 1 applic TOPICAL BID 06/12/16 07/31/16 traZODone HCL 300 mg PO HS 06/12/16 07/31/16 Previous Rx's Medication Instructions Recorded HYDROcodone/APAP 7.5-325MG [[place] 1 tab PO Q6HR PRN #30 tab 07/12/15 7.5-325] QUEtiapine [SEROquel] 100 mg PO HS tab 08/24/15 Doxazosin [Cardura] 1 mg PO DAILY tab 12/11/15 Cholestyramine (with Sugar) 4 gm PO TID BETWEEN MEALS #90 06/23/16 [Questran Packet] packet Diphenox-Atrop 2.5-0.025 mg 1 tab PO QID PRN #30 tablet 06/23/16 [Lomotil] Albuterol Nebulized [Ventolin 2.5 mg INHALATION RT-QID #0 nebu 07/08/16 Nebulized] Omeprazole [PriLOSEC] 20 mg PO AC-BRKFST #15 cap 07/08/16 Allergies Allergy/AdvReac Type Severity Reaction Status Date / Time No Known Allergies Allergy Verified 07/31/16 19:00 Review of Systems ROS Statement: Those systems with pertinent positive or pertinent negative responses have been documented in the HPI. ROS Other: All systems not noted in ROS Statement are negative. Respiratory: Reports: wheezes. Denies: cough, dyspnea Cardiovascular: Denies: chest pain, palpitations, syncope Gastrointestinal: Denies: abdominal pain, vomiting Skin: Denies: rash Neurological: Denies: headache, weakness, numbness Psychiatric: Reports: as per HPI, other (Anger "issues"). Denies: auditory hallucinations, visual hallucinations, homicidal thoughts, suicidal thoughts Past Medical History Past Medical History: Asthma, Chest Pain / Angina, COPD, Hypertension, Osteoarthritis (OA), Respiratory Disorder Additional Past Medical History / Comment(s): O2 AT HOME 5 LITERS N/C CONT, MIGRAINES, obesity, KODI LOWER LEG CELLULITIS. History of Any Multi-Drug Resistant Organisms: None Reported Past Surgical History: Appendectomy, Orthopedic Surgery Additional Past Surgical History / Comment(s): RT EYE SX, RT ANKLE BROKEN 1977 HAD ORIF PLATE/PINS Past Anesthesia/Blood Transfusion Reactions: No Reported Reaction Additional Past Anesthesia/Blood Transfusion Reaction / Comment(s): CLAUSTERPHOBIA Past Psychological History: Anxiety, Depression Additional Psychological History / Comment(s): PT CURRENTLY LIVING AT [facility]. USES WALKER/POWER CHAIR BUT STATED ONLY ABLE TO AMBULATE VERY SHORT DISTANCES AND GETS SOB WITH EXERTION. PT IS RETIRED FROM [employer]. Smoking Status: Former smoker Past Alcohol Use History: None Reported Additional Past Alcohol Use History / Comment(s): STARTED SMOKING AT AGE 11 SMOKED 2 PPD QUIT 2010, HASN'T CONSUMED ETOH SINCE AGE 28(STATED WAS AN ALCOHOLIC FROM AGE [age]) Past Drug Use History: None Reported - Past Family History Father Family Medical History: Diabetes Mellitus Additional Family Medical History / Comment(s): IN 2004 COMPLICATIONS FROM DIABETES Mother Family Medical History: Unable to Obtain Additional Family Medical History / Comment(s): AGE 56 OF FEMALE [place] General Exam Limitations: no limitations General appearance: alert, in no apparent distress, obese Head exam: Present: atraumatic, normocephalic Eye exam: Present: normal appearance. Absent: scleral icterus, conjunctival injection Respiratory exam: Present: wheezes. Absent: respiratory distress, rales, rhonchi, stridor Cardiovascular Exam: Present: regular rate, normal rhythm, normal heart sounds. Absent: systolic murmur, diastolic murmur, rubs, gallop GI/Abdominal exam: Present: soft. Absent: distended, tenderness, guarding, rebound, mass Extremities exam: Present: normal inspection, normal capillary refill. Absent: pedal edema, calf tenderness Back exam: Present: normal inspection. Absent: CVA tenderness (R), CVA tenderness (L) Neurological exam: Present: alert Psychiatric exam: Present: normal affect, normal mood. Absent: depressed, agitated, anxious, flat affect, manic, homicidal ideation, suicidal ideation Skin exam: Present: warm, dry, intact, normal color. Absent: rash Course Vital Signs 07/31/16 07/31/16 07/31/16 18:31 20:09 20:20 Temperature 99 F Pulse Rate 93 88 86 Respiratory 24 Rate Blood Pressure 136/68 O2 Sat by Pulse 97 Oximetry Medical Decision Making - Lab Data Result diagrams: 07/31/16 20:05 07/31/16 20:05 Lab Results 07/31/16 07/31/16 07/31/16 Range/Units 20:05 20:05 20:05 WBC 17.3 H (3.8-10.6) k/uL RBC 4.58 (4.30-5.90) m/uL Hgb 13.7 (13.0-17.5) gm/dL Hct 42.4 (39.0-53.0) % MCV 92.6 (80.0-100.0) fL MCH 30.0 (25.0-35.0) pg MCHC 32.4 (31.0-37.0) g/dL RDW 14.4 (11.5-15.5) % Plt Count 252 (150-450) k/uL Neutrophils % 81 % Lymphocytes % 5 % Monocytes % 6 % Eosinophils % 4 % Basophils % 1 % Neutrophils # 14.0 H (1.3-7.7) k/uL Lymphocytes # 0.9 L (1.0-4.8) k/uL Monocytes # 1.1 H (0-1.0) k/uL Eosinophils # 0.7 (0-0.7) k/uL Basophils # 0.1 (0-0.2) k/uL Sodium 131 L (137-145) mmol/L Potassium 4.4 (3.5-5.1) mmol/L Chloride 94 L (98-107) mmol/L Carbon Dioxide 32 H (22-30) mmol/L Anion Gap 5 mmol/L BUN 21 H (9-20) mg/dL Creatinine 0.99 (0.66-1.25) mg/dL Est GFR (MDRD) Af Amer >60 (>60 ml/min/1.73 sqM) Est GFR (MDRD) Non-Af >60 (>60 ml/min/1.73 sqM) Glucose 92 (74-99) mg/dL Calcium 8.9 (8.4-10.2) mg/dL Urine Color Yellow Urine Appearance Clear (Clear) Urine pH 6.0 (5.0-8.0) Ur Specific [place] 1.016 (1.001-1.035) Urine Protein Negative (Negative) Urine Glucose (UA) Negative (Negative) Urine Ketones Negative (Negative) Urine Blood Negative (Negative) Urine Nitrite Negative (Negative) Urine Bilirubin Negative (Negative) Urine Urobilinogen <2.0 (<2.0) mg/dL Ur Leukocyte Esterase Negative (Negative) Disposition Clinical Impression: Adjustment reaction Disposition: HOME SELF-CARE Condition: Fair
[2016-07-31 23:21] VITALS: BP 130/78; PULSE 90; RESP 20
== END 2016-07-31 23:51 | disposition home or self-care (01) ==
LOC: EC 18:25
DX: F43.20 Adjustment disorder, unspecified (principal); R45.4 Irritability and anger; J45.909 Unspecified asthma, uncomplicated; I10 Essential (primary) hypertension; M19.90 Unspecified osteoarthritis, unspecified site; F32.9 Major depressive disorder, single episode, unspecified; F41.9 Anxiety disorder, unspecified; Z79.899 Other long term (current) drug therapy
CPT/HCPCS: 36415; 80048; 81003; 82075; 85025; 94640; 99284

== ENCOUNTER 2016-08-13 03:06 | Inpatient (IN) | payer MEDICARE, OTHER ==
[2016-08-13] MEDS ORDERED: SODIUM CHLORIDE 0.9% 1,000 ML IV STA (03:26)
[2016-08-13] MEDS ORDERED: ALBUTEROL NEBULIZED 2.5 MG/3 ML INHALATION STA (03:26)
[2016-08-13] MEDS ORDERED: IPRATROPIUM 0.5 MG/2.5 ML NEBU INHALATION STA (03:26)
--- NOTE | 2016-08-13 03:26 | ED ---
General Adult HPI - General Chief complaint: Shortness of Breath Stated complaint: SOB Time Seen by Provider: 08/13/16 03:17 Source: EMS, RN notes reviewed, old records reviewed Mode of arrival: EMS - History of Present Illness Initial comments: This is a 61-year-old male here for evaluation of shortness of breath, severe shortness of cough and congestion, increased sputum production. Patient has severe COPD, end-stage COPD. Patient denies specific fevers or chest pain at this time. - Related Data Home Medications Medication Instructions Recorded Confirmed ARIPiprazole [Abilify] 2 mg PO DAILY 12/08/13 07/31/16 Albuterol Inhaler [Ventolin Hfa 2 puff INHALATION RT-QID 12/08/13 07/31/16 Inhaler] Lisinopril [Zestril] 20 mg PO DAILY 12/08/13 07/31/16 Theophylline 24 Hour [Mark-24] 400 mg PO HS 12/08/13 07/31/16 Venlafaxine HCl ER [Effexor XR] 150 mg PO DAILY 12/08/13 07/31/16 Hydrochlorothiazide [Hydrodiuril] 50 mg PO DAILY 07/09/15 07/31/16 Allopurinol [Zyloprim] 300 mg PO DAILY 11/11/15 07/31/16 Furosemide [Lasix] 40 mg PO DAILY 11/11/15 07/31/16 buPROPion HCL [Wellbutrin XL] 300 mg PO DAILY 11/11/15 07/31/16 clonazePAM [KlonoPIN] 0.5 mg PO QAM 12/09/15 07/31/16 clonazePAM [KlonoPIN] 2 mg PO HS 12/09/15 07/31/16 Ergocalciferol (Vitamin D2) 50,000 unit PO Q30D 01/12/16 07/31/16 [Drisdol] Butalbit/Acetamin/Caff/Codeine 1 cap PO Q6H PRN 03/24/16 07/31/16 [Fioricet-Cod 07-894-17-30 Cap] Hydrocortisone Cream 1 applic TOPICAL QID 06/12/16 07/31/16 [Hydrocortisone 2.5% Cream] Triamcinolone 0.1% Cream [Kenalog] 1 applicatio TOPICAL BID 06/12/16 07/31/16 metroNIDAZOLE 0.75% CREAM 1 applic TOPICAL BID 06/12/16 07/31/16 traZODone HCL 300 mg PO HS 06/12/16 07/31/16 Previous Rx's Medication Instructions Recorded HYDROcodone/APAP 7.5-325MG [[place] 1 tab PO Q6HR PRN #30 tab 07/12/15 7.5-325] QUEtiapine [SEROquel] 100 mg PO HS tab 08/24/15 Doxazosin [Cardura] 1 mg PO DAILY tab 12/11/15 Cholestyramine (with Sugar) 4 gm PO TID BETWEEN MEALS #90 06/23/16 [Questran Packet] packet Diphenox-Atrop 2.5-0.025 mg 1 tab PO QID PRN #30 tablet 06/23/16 [Lomotil] Albuterol Nebulized [Ventolin 2.5 mg INHALATION RT-QID #0 nebu 07/08/16 Nebulized] Omeprazole [PriLOSEC] 20 mg PO AC-BRKFST #15 cap 07/08/16 Allergies Allergy/AdvReac Type Severity Reaction Status Date / Time No Known Allergies Allergy Verified 07/31/16 19:00 Review of Systems ROS Statement: Those systems with pertinent positive or pertinent negative responses have been documented in the HPI. ROS Other: All systems not noted in ROS Statement are negative. Past Medical History Past Medical History: Asthma, Chest Pain / Angina, COPD, Hypertension, Osteoarthritis (OA), Respiratory Disorder Additional Past Medical History / Comment(s): O2 AT HOME 5 LITERS N/C CONT, MIGRAINES, obesity, KODI LOWER LEG CELLULITIS. History of Any Multi-Drug Resistant Organisms: None Reported Past Surgical History: Appendectomy, Orthopedic Surgery Additional Past Surgical History / Comment(s): RT EYE SX, RT ANKLE BROKEN 1977 HAD ORIF PLATE/PINS Past Anesthesia/Blood Transfusion Reactions: No Reported Reaction Additional Past Anesthesia/Blood Transfusion Reaction / Comment(s): CLAUSTERPHOBIA Past Psychological History: Anxiety, Depression Additional Psychological History / Comment(s): PT CURRENTLY LIVING AT [facility] [place]. USES WALKER/POWER CHAIR BUT STATED ONLY ABLE TO AMBULATE VERY SHORT DISTANCES AND GETS SOB WITH EXERTION. PT IS RETIRED FROM [employer]. Smoking Status: Former smoker Past Alcohol Use History: None Reported Additional Past Alcohol Use History / Comment(s): STARTED SMOKING AT AGE 11 SMOKED 2 PPD QUIT 2010, HASN'T CONSUMED ETOH SINCE AGE 28(STATED WAS AN ALCOHOLIC FROM AGE [age]) Past Drug Use History: None Reported - Past Family History Father Family Medical History: Diabetes Mellitus Additional Family Medical History / Comment(s): IN 2004 COMPLICATIONS FROM DIABETES Mother Family Medical History: Unable to Obtain Additional Family Medical History / Comment(s): AGE 56 OF FEMALE [place] General Exam General appearance: alert, in no apparent distress, anxious Head exam: Present: atraumatic, normocephalic, normal inspection Eye exam: Present: normal appearance, PERRL, EOMI. Absent: scleral icterus, conjunctival injection, periorbital swelling ENT exam: Present: normal exam, mucous membranes dry, mucous membranes moist Neck exam: Present: normal inspection. Absent: tenderness, meningismus, lymphadenopathy Respiratory exam: Present: normal lung sounds bilaterally, wheezes, chest wall tenderness, accessory muscle use, decreased breath sounds, prolonged expiratory. Absent: respiratory distress, rales, rhonchi, stridor Cardiovascular Exam: Present: normal rhythm, tachycardia, normal heart sounds. Absent: systolic murmur, diastolic murmur, rubs, gallop, clicks GI/Abdominal exam: Present: soft, normal bowel sounds. Absent: distended, tenderness, guarding, rebound, rigid Extremities exam: Present: normal inspection, full ROM, normal capillary refill. Absent: tenderness, pedal edema, joint swelling, calf tenderness Back exam: Present: normal inspection Neurological exam: Present: alert, oriented X3, CN II-XII intact Psychiatric exam: Present: normal affect, normal mood Skin exam: Present: warm, dry, intact, normal color. Absent: rash Course Vital Signs 08/13/16 08/13/16 08/13/16 03:08 03:35 03:43 Temperature 98.1 F Pulse Rate 105 H 104 H Respiratory 18 Rate Blood Pressure 143/65 O2 Sat by Pulse 97 Oximetry EKG Findings - EKG Comments: EKG Findings:: EKG shows sinus tachycardia rate of 105, PA 164, QRS 80, QTC 457 Medical Decision Making - Medical Decision Making 61 male here for evaluation. Patient presents for evaluation of severe shortness of breath - Lab Data Result diagrams: 08/13/16 03:31 08/13/16 03:31 Lab Results 08/13/16 08/13/16 08/13/16 Range/Units 03:31 03:31 03:31 WBC 13.9 H (3.8-10.6) k/uL RBC 4.42 (4.30-5.90) m/uL Hgb 13.3 (13.0-17.5) gm/dL Hct 41.7 (39.0-53.0) % MCV 94.4 (80.0-100.0) fL MCH 30.1 (25.0-35.0) pg MCHC 31.8 (31.0-37.0) g/dL RDW 15.0 (11.5-15.5) % Plt Count 349 (150-450) k/uL Neutrophils % 74 % Lymphocytes % 9 % Monocytes % 7 % Eosinophils % 5 % Basophils % 1 % Neutrophils # 10.3 H (1.3-7.7) k/uL Lymphocytes # 1.2 (1.0-4.8) k/uL Monocytes # 1.0 (0-1.0) k/uL Eosinophils # 0.7 (0-0.7) k/uL Basophils # 0.1 (0-0.2) k/uL PT 9.8 (9.0-12.0) sec INR 1.0 (<1.1) APTT 23.5 (22.0-30.0) sec Sodium 138 (137-145) mmol/L Potassium 4.0 (3.5-5.1) mmol/L Chloride 101 (98-107) mmol/L Carbon Dioxide 31 H (22-30) mmol/L Anion Gap 6 mmol/L BUN 12 (9-20) mg/dL Creatinine 0.90 (0.66-1.25) mg/dL Est GFR (MDRD) Af Amer >60 (>60 ml/min/1.73 sqM) Est GFR (MDRD) Non-Af >60 (>60 ml/min/1.73 sqM) Glucose 109 H (74-99) mg/dL Calcium 8.7 (8.4-10.2) mg/dL Magnesium 2.1 (1.6-2.3) mg/dL Total Bilirubin 0.2 (0.2-1.3) mg/dL AST 24 (17-59) U/L ALT 42 (21-72) U/L Alkaline Phosphatase 105 (38-126) U/L Total Protein 6.0 L (6.3-8.2) g/dL Albumin 3.4 L (3.5-5.0) g/dL Disposition Clinical Impression: COPD (chronic obstructive pulmonary disease), Leukocytosis Disposition: ADMITTED IP TO THIS HOSP Condition: Fair Referrals: Emilie Webb DO [Primary Care Provider] - 1-2 days
[2016-08-13 03:44] LABS: Basophils # (A) 0.1 k/uL (0-0.2); Basophils % (A) 1 %; CH 30.4; CHCM 32.3; Eosinophils # (A) 0.7 k/uL (0-0.7); Eosinophils % (A) 5 %; HCT 41.7 % (39.0-53.0); HDW 2.49; HGB 13.3 gm/dL (13.0-17.5); Luc # (Auto) 0.56; Luc % (Auto) 4; Lymphocytes # (A) 1.2 k/uL (1.0-4.8); Lymphocytes % (A) 9 %; MCH 30.1 pg (25.0-35.0); MCHC 31.8 g/dL (31.0-37.0); MCV 94.4 fL (80.0-100.0); Mean Platelet Volume 7.5; Monocytes % (A) 7 %; Neutrophils # (A) 10.3 k/uL (1.3-7.7); Neutrophils % (A) 74 %; RBC 4.42 m/uL (4.30-5.90); WBC 13.9 k/uL (3.8-10.6); WBC (Perox) 13.95
[2016-08-13 03:53] LABS: ALT 42 U/L (21-72); AST 24 U/L (17-59); Alkaline Phosphatase 105 U/L (38-126); Anion Gap 6 mmol/L; Blood Urea Nitrogen 12 mg/dL (9-20); Calcium 8.7 mg/dL (8.4-10.2); Carbon Dioxide 31 mmol/L (22-30); Chloride 101 mmol/L (98-107); Glucose 109 mg/dL (74-99); Magnesium 2.1 mg/dL (1.6-2.3); Non-African American GFR(MDRD) >60 (>60 ml/min/1.73 sqM); Sodium 138 mmol/L (137-145); Total Bilirubin 0.2 mg/dL (0.2-1.3)
[2016-08-13 03:55] LABS: Partial Thromboplastin Time 23.5 sec (22.0-30.0); Prothrombin Time 9.8 sec (9.0-12.0)
[2016-08-13] MEDS ORDERED: methylPREDNISolone SOD SUCCI 125 MG/2 ML VIAL IV STA (04:06)
[2016-08-13 04:07] LABS: Creatine Kinase 53 U/L (55-170)
--- NOTE | 2016-08-13 04:09 | XR ---
EXAM: XR Chest, 1 View CLINICAL HISTORY: Reason: sob TECHNIQUE: Frontal view of the chest. COMPARISON: Chest CT dated 06/12/16 and Chest x-ray dated 07/18/16 FINDINGS: Lungs: Bibasilar atelectasis. Extensive emphysematous changes once again seen. Pleural space: Unremarkable. No pneumothorax. Heart: Unremarkable. No cardiomegaly. Mediastinum: Unremarkable. Bones/joints: Unremarkable. IMPRESSION: Bibasilar atelectasis. Extensive emphysematous changes once again seen.
[2016-08-13 04:20] LABS: Creatine Kinase MB 1.7 ng/mL (0.0-2.4); Troponin I <0.012 ng/mL (0.000-0.034)
[2016-08-13] MEDS: ASPIRIN-ACET-CAFF 250-250-65MG 1 EACH TAB PO PRN (07:05)
[2016-08-13] MEDS: IPRATROPIUM-ALBUTEROL 3 ML NEB INHALATION SCH ×4 (07:21→19:59)
[2016-08-13 07:32] VITALS: BMI 34.9
[2016-08-13] MEDS: buPROPion XL 300 MG TAB.ER.24H PO SCH (09:29)
[2016-08-13] MEDS: ALLOPURINOL 300 MG TAB PO SCH (09:29)
[2016-08-13] MEDS: VENLAFAXINE HCL ER 150 MG CAP PO SCH (09:30)
[2016-08-13] MEDS: LISINOPRIL 20 MG TAB PO SCH (09:30)
[2016-08-13] MEDS: NICOTINE 21MG/24HR PATCH TRANSDERM SCH (09:30)
[2016-08-13] MEDS: HYDROCHLOROTHIAZIDE 50 MG TAB PO SCH (09:30)
[2016-08-13] MEDS: ENOXAPARIN 40 MG/0.4 ML SYRINGE SQ SCH (09:30)
[2016-08-13] MEDS: FUROSEMIDE 40 MG TAB PO SCH (09:30)
[2016-08-13] MEDS: HYDROcodone/APAP 7.5-325MG 1 EACH TAB PO PRN ×2 (09:39→17:23)
[2016-08-13] MEDS: clonazePAM 0.5 MG TAB PO SCH (09:39)
[2016-08-13] MEDS: methylPREDNISolone SOD SUCCI 125 MG/2 ML VIAL IV SCH ×3 (12:12→20:44)
[2016-08-13] MEDS ORDERED: HYOSCYAMINE SULFATE 0.125 MG TAB PO PRN (14:14)
[2016-08-13 14:47] LABS: Appearance,Urine Clear (Clear); Bacteria,Urine Rare /hpf; Bilirubin,Urine Negative (Negative); Glucose,Urine (UA) Negative (Negative); Ketones,Urine Negative (Negative); Leukocyte Esterase,Urine Negative (Negative); Mucus,Urine Rare /hpf; Nitrite,Urine Negative (Negative); Particle Count 927; Protein,Urine Negative (Negative); RBC,Urine >182 /hpf (0-5); Specific Gravity,Urine 1.007 (1.001-1.035); UA Billing (MACRO vs. MICRO) MICRO; Urobilinogen,Urine <2.0 mg/dL (<2.0); WBC,Urine 1 /hpf (0-5)
[2016-08-13 17:23] LABS: Glucose,Whole Blood 99 mg/dL (75-99)
--- NOTE | 2016-08-13 17:23 | CONS ---
DATE OF CONSULTATION: This is a 61-year-old gentleman who presented to the emergency room on August 13. He came in for shortness of breath and difficulty breathing. He had chest congestion. He was coughing and producing phlegm. He also was sweating profusely. No chest pain or chest discomfort. The patient has not seen me in the office for some time. He does have a history of quite severe end-stage stage IV COPD. He apparently resides at the [facility]. He is not feeling much better today. He has a very short temper. He was very agitated when we went into the room today. He is giving the nurses a bit of a hard time. Anyway, he is not feeling much better since he has been here. His home medications include: 1. Abilify. 2. Ventolin inhaler. 3. Zestril. 4. Theophylline. 5. Effexor. 6. Hydrochlorothiazide. 7. Zyloprim. 8. Lasix. 9. Wellbutrin. 10. Klonopin. 11. Vitamin D2. 12. Fioricet with codeine. 13. Hydrocortisone cream. 14. Triamcinolone cream. 15. Metronidazole cream. 16. Trazodone hydrochloride. At one point or another he has also been on Prilosec, albuterol updrafts, Lomotil, Questran, Cardura, Seroquel and [place]. ALLERGIES: DENIED. Medical history includes: 1. COPD, oxygen-dependent. 2. Hypertension. 3. DJD. 4. Medical noncompliance as well. 5. Migraine cephalgia. In addition, he has complaints of bilateral lower extremity cellulitis. Surgical history includes: 1. Appendectomy. 2. Orthopedic procedures. 3. ORIF of the right ankle. 4. Right eye surgery. SOCIAL HISTORY: Positive for previous heavy tobacco use. He states he does not smoke currently. No alcohol use. No illicit drug use. Family history is positive for diabetes. REVIEW OF SYSTEMS: CONSTITUTIONAL: Negative. NEUROLOGICAL: Negative. HEENT: Negative. CARDIOVASCULAR: Negative. PULMONARY: Shortness of breath, chest congestion, cough, difficulty breathing, chest tightness. GI/: Negative. RHEUMATOLOGICAL/IMMUNOLOGIC: Negative. ENDOCRINOLOGIC: Negative. DERMATOLOGIC: Negative. Current vital signs include temperature 97.9, heart rate 100, respiratory rate 18, blood pressure 115/73, mean 86, 5-liter saturation 97%. Appears in no acute distress. Looks about the same. HEENT examination is grossly unremarkable. Mucous membranes are moist. No oral lesions. NECK: Supple. Full range of motion. No adenopathy or thyromegaly. Neck veins are flat. Cardiovascular examination reveals tachycardia. It is regular. Heart rate about 105. S1, S2 normal. No murmur. Lungs reveal some bibasilar crackles. There are some expiratory wheezes and rhonchi. Breath sounds are diminished. Slight prolongation. Adventitious lung sounds are more prominent on forced maneuver. ABDOMEN: Obese. Bowel sounds are heard. EXTREMITIES: Intact. There is some evidence of diffuse erythema and hyperemia. There is evidence of cellulitis. There are some chronic venostasis changes. He also has 1+ to 2+ pitting edema of the lower extremities. Skin is without rash except for the cellulitis noted in the lower extremities. Chest x-ray shows some emphysematous changes, basilar atelectasis and possibly some underlying fluid overload. Lab data is reviewed. White count 13.9, hemoglobin 13.3, hematocrit 41.7, platelet count 349,000. PT, INR, PTT normal. Sodium, potassium, chloride normal. CO2 31. BUN and creatinine were 12 and 0.9. Anion gap is normal. CK 53. Albumin 3.4. ASSESSMENT: 1. Chronic obstructive pulmonary disease exacerbation complicated by purulent tracheobronchitis. 2. Possible mild fluid overload. 3. History of multiple other medical problems and comorbidities. 4. Lower extremity cellulitis and edema. 5. Hypoxemia, chronic, requiring 24-hour/7-day oxygen therapy. 6. Cor pulmonale. 7. Obesity. PLAN: I will review the patient's medications. He should be on a short-acting beta agonist, a short-acting muscarinic antagonist, an inhaled corticosteroid and a long-acting beta agonist. He should also benefit from systemic corticosteroids and some antibiotics. Will continue to follow. Additional recommendations and suggestions are forthcoming. Will ensure that the patient is on systemic corticosteroids as well. No additional recommendations are made. Prognosis is guarded.
[2016-08-13] MEDS: INSULIN LISPRO (humaLOG) 300 UNIT/3 ML VIAL SQ SCH ×2 (17:39→22:02)
--- NOTE | 2016-08-13 17:42 | HP ---
DATE OF ADMISSION: CHIEF COMPLAINT: Shortness of breath. HISTORY OF PRESENT ILLNESS: This 61-year-old gentleman with a past history of multiple medical problems including chronic obstructive pulmonary disease, history of asthma, history of hypertension, history of chronic hypoxic respiratory failure on 5-L home nasal cannula being followed by Dr. Webb in the outpatient setting was complaining of shortness of breath, which was increasing over the past several days. The patient apparently was in hospice previously and was living at [facility]. The patient came to [facility] and was found to have tachycardia, which is sinus and features of acute respiratory failure. Patient admitted for further evaluation and treatment. There is no history of fever, rigors. No history of headache, loss of consciousness, seizures at this time. PAST MEDICAL HISTORY: History of asthma, COPD, history of degenerative joint disease, history of chronic respiratory failure, claustrophobia, history of anxiety, depression. Medications prior to admission include home medications: 1. Trazodone 300 mg p.o. q.h.s. 2. Klonopin 0.5 mg q.a.m.. 3. Klonopin 2 mg q.h.s. 4. Wellbutrin XL 300 mg p.o. daily. 5. Effexor-XR 150 mg p.o. daily. 6. Mark-24 400 mg q.h.s. 7. Seroquel 100 mg p.o. q.h.s. 8. Roxanol 5 mL p.o. b.i.d. q.2 p.r.n. 9. DuoNeb q.i.d. and p.r.n. 10. Levsin 0.125 to 0.25 q.4 p.r.n. 11. Hydrocortisone cream local applications. 12. HydroDIURIL 50 mg p.o. daily. 13. Haldol 50 mg p.o. monthly. 14. [place] 1 tablet p.o. q.6 p.r.n. 15. Lasix 40 mg p.o. daily. 16. Advair 250/50, 1 puff b.i.d. 17. Drisdol 50,000 p.o. q.30 days. 18. Cardura 1 mg p.o. q.h.s. 19. Colace 200 mg p.o. daily. 20. Excedrin 2 tablets q.6 p.r.n. 21. Lac-Hydrin one application topically p.r.n. 22. Zyloprim 300 mg p.o. daily. 23. Ventolin 2.5 inhaler q.i.d. ALLERGIES: None. FAMILY HISTORY: History of diabetes mellitus in the family. SOCIAL HISTORY: Previous history of smoking. No history of current smoking or alcohol intake. REVIEW OF SYSTEMS: ENT: Diminished hearing, diminished vision. CARDIOVASCULAR: No angina. RESPIRATORY: As mentioned earlier. GI: No nausea. : No dysuria. NERVOUS SYSTEM: As mentioned earlier. ALLERGY/IMMUNOLOGY: Asthma. MUSCULOSKELETAL: As mentioned earlier. HEMATOLOGY: No history of anemia. ENDOCRINE: As mentioned earlier. CONSTITUTIONAL: As mentioned earlier. DERMATOLOGY: Negative. RHEUMATOLOGY: Negative. PSYCHIATRY: As mentioned earlier. PHYSICAL EXAMINATION: Alert and oriented x3. Pulse is 105, blood pressure 143/65, respirations 18, temperature 98.1, pulse ox 97% on 5 liters. Patient is extremely short of breath at rest. HEENT: Conjunctivae normal. Oral mucosa moist. NECK: No jugular venous distention. No carotid bruit. No lymph node enlargement. Accessory muscles or respiration are acting. CARDIOVASCULAR: S1 and S2 normal. No murmur. No S3, no S4. RESPIRATORY: Breath sounds diminished at the bases. Breathing efforts are markedly increased. Bilateral scattered rhonchi and expiratory wheezing and crackles also. ABDOMEN: Soft, nontender. No mass palpable. LEGS: No edema, no swelling. Erythema present. NERVOUS SYSTEM: Higher function as mentioned. Moves all four limbs. No focal motor or sensory deficits. LYMPHATIC: No lymphadenopathy in the neck, axillae or groin. SKIN: No ulcer, rash or bleeding. LABS: WBC 13.9, hemoglobin 13.3, sodium 138, potassium 4, glucose 109, total creatine kinase 53. Albumin is 3.4. ASSESSMENT: 1. Chronic obstructive pulmonary disease, acute exacerbation with acute purulent tracheobronchitis with acute hypoxic respiratory failure. 2. Chronic hypoxic respiratory failure on 5-L nasal cannula oxygen. 3. Bibasilar atelectasis. 4. History of bilateral venostasis and erythema. 5. History of asthma, chronic obstructive pulmonary disease. 6. History of essential hypertension. 7. History of degenerative joint disease. 8. History of migraine. 9. History of obesity. 10. History of claustrophobia. 11. Anxiety and depression, not otherwise specified. 12. Remote history of EtOH. 13. History of degenerative joint disease. 14. History of appendectomy. 15. Obesity with body mass index of 35. 16. Increased WBC. 17. Hypoalbuminemia, mild. 18. NO CODE, NO CARDIOPULMONARY RESUSCITATION, NO VENT. RECOMMENDATIONS AND DISCUSSION: In this 61-year-old gentleman present with multiple complex medical issues, we will monitor the patient closely. Continue to optimize the bronchodilators and empiric antibiotics, steroids. Resume the home medications. Guarded prognosis because of multiple complex medical issues. Further recommendations to follow. Copy of dictation forwarded to Dr. Webb, who is the primary physician.
[2016-08-13] MEDS: clonazePAM 1 MG TAB PO SCH (19:16)
[2016-08-13] MEDS: FORMOTEROL FUMARATE 20 MCG/2 ML NEBU INHALATION SCH (19:59)
[2016-08-13] MEDS: BUDESONIDE 1 MG/2 ML NEBU INHALATION SCH (19:59)
[2016-08-13] MEDS ORDERED: NON-FORMULARY DRUG (Fluticasone/Salmeterol [Advair 500-50 Diskus] 1 PUFF) INHALATION SCH (20:00)
[2016-08-13 20:26] LABS: Glucose,Whole Blood 112 mg/dL (75-99)
[2016-08-13] MEDS: QUEtiapine 100 MG TAB PO SCH (20:40)
[2016-08-13] MEDS: DOXAZOSIN 1 MG TAB PO SCH (20:40)
[2016-08-13] MEDS: SULFAMETHOX-TMP 800-160MG 1 EACH TAB PO SCH (20:42)
[2016-08-13] MEDS: THEOPHYLLINE 24 HOUR 400 MG CAP.ER.24H PO SCH (20:43)
[2016-08-13] MEDS: AMMONIUM LACTATE 12% CREAM 140 GM TUBE TOPICAL SCH (20:44)
[2016-08-13] MEDS ORDERED: traZODone HCL 100 MG TAB PO SCH ×2 (21:00)
[2016-08-14] MEDS: HYDROcodone/APAP 7.5-325MG 1 EACH TAB PO PRN ×3 (01:57→14:32)
[2016-08-14] MEDS: methylPREDNISolone SOD SUCCI 125 MG/2 ML VIAL IV SCH ×4 (05:27→23:49)
[2016-08-14] MEDS: MORPHINE ORAL SOLN 20 MG/1 ML ORAL SYRINGE PO PRN ×3 (06:11→18:19)
[2016-08-14 07:09] LABS: Glucose,Whole Blood 122 mg/dL (75-99)
[2016-08-14] MEDS: FORMOTEROL FUMARATE 20 MCG/2 ML NEBU INHALATION SCH ×2 (07:30→21:04)
[2016-08-14] MEDS: BUDESONIDE 1 MG/2 ML NEBU INHALATION SCH ×2 (07:30→21:04)
[2016-08-14] MEDS: IPRATROPIUM-ALBUTEROL 3 ML NEB INHALATION SCH ×4 (07:30→21:04)
[2016-08-14] MEDS: HYDROCHLOROTHIAZIDE 50 MG TAB PO SCH (08:07)
[2016-08-14] MEDS: SULFAMETHOX-TMP 800-160MG 1 EACH TAB PO SCH ×2 (08:07→21:45)
[2016-08-14] MEDS: ENOXAPARIN 40 MG/0.4 ML SYRINGE SQ SCH (08:07)
[2016-08-14] MEDS: NICOTINE 21MG/24HR PATCH TRANSDERM SCH ×2 (08:07→12:40)
[2016-08-14] MEDS: buPROPion XL 300 MG TAB.ER.24H PO SCH (08:08)
[2016-08-14] MEDS: VENLAFAXINE HCL ER 150 MG CAP PO SCH (08:08)
[2016-08-14] MEDS: LISINOPRIL 20 MG TAB PO SCH (08:08)
[2016-08-14] MEDS: ALLOPURINOL 300 MG TAB PO SCH (08:08)
[2016-08-14] MEDS: clonazePAM 0.5 MG TAB PO SCH (08:08)
[2016-08-14] MEDS: FUROSEMIDE 40 MG TAB PO SCH (08:08)
[2016-08-14] MEDS: DOCUSATE 100 MG CAP PO SCH (08:08)
[2016-08-14] MEDS: INSULIN LISPRO (humaLOG) 300 UNIT/3 ML VIAL SQ SCH ×4 (08:18→21:47)
[2016-08-14] MEDS: CALCIUM CARBONATE 500 MG CHEWABLE PO PRN ×3 (08:27→12:32)
[2016-08-14 11:34] LABS: Glucose,Whole Blood 126 mg/dL (75-99)
[2016-08-14] MEDS: ASPIRIN-ACET-CAFF 250-250-65MG 1 EACH TAB PO PRN (12:30)
[2016-08-14] MEDS: AMMONIUM LACTATE 12% CREAM 140 GM TUBE TOPICAL SCH ×2 (12:34→21:48)
--- NOTE | 2016-08-14 15:25 | PN ---
This is a 61-year-old patient with a history of COPD. He came in with severe shortness of breath, difficulty breathing, chest congestion, coughing and phlegm production. He apparently was also sweating profusely. Feeling much better today. Very agitated yesterday. He resides at the [facility]. His hospice nurse was in the room with him today. He apparently is a NO CODE. Is feeling much improved today. CURRENT VITAL SIGNS: Temperature 97.5, heart rate 97, respiratory rate 22, blood pressure 118/61, mean 80, 5 liters saturation 94%. Appears in no acute distress. HEENT examination is grossly unremarkable. Mucous membranes are moist. There are no oral lesions. Neck is supple. Full range of motion. No adenopathy or thyromegaly. Neck veins are flat. Cardiovascular examination reveals regular rhythm rate, S1, S2 normal. No S3, S4. Heart sounds are distant. No distinct murmur. Lungs reveal diffuse inspiratory and expiratory rhonchi. A few scattered high-pitched wheezes. No crackles. Abdomen is obese. Bowel sounds are heard. Extremities are intact. There is 1 to 2+ pitting edema. There is some diffuse erythema and cellulitis of the lower extremities. There is pitting edema as well. Skin is without rash. Neurologic examination is brief but nonfocal. Labs are reviewed. No new labs from today. Chest x-ray from yesterday shows evidence of bibasilar atelectasis. There are also significant emphysematous changes. Medications were adjusted yesterday. ASSESSMENT: 1. Severe chronic obstructive pulmonary disease exacerbation complicated by purulent tracheobronchitis. 2. Possible mild fluid overload. 3. History of multiple other medical problems and comorbidities. 4. Lower extremity cellulitis and edema. 5. Chronic hypoxemia requiring 24/7 oxygen therapy. 6. Cor pulmonale. 7. Obesity. PLAN: I talked spoke to his hospice nurse today. He is a NO CODE. The patient apparently is working with [facility] in [place]. Will continue to follow closely. Medications are reviewed. Microbiology including urine and blood are negative. Medications were adjusted yesterday and include all the usual including albuterol, Atrovent, Pulmicort, Perforomist, corticosteroids, and antibiotics. Prognosis is guarded. Will continue to follow.
[2016-08-14] MEDS: PANTOPRAZOLE 40 MG/10 ML VIAL IVP SCH (16:04)
[2016-08-14 17:10] LABS: Glucose,Whole Blood 124 mg/dL (75-99)
[2016-08-14] MEDS: TRIAMCINOLONE 0.1% CREAM 80 GM TUBE TOPICAL SCH ×2 (17:30→21:47)
[2016-08-14] MEDS ORDERED: LORazepam 0.5 MG TAB PO PRN (17:52)
--- NOTE | 2016-08-14 20:12 | PN ---
DATE OF SERVICE: 08/14/2016 This 61-year-old gentleman who was admitted with COPD, acute exacerbation, acute purulent tracheobronchitis, also had chronic hypoxic respiratory failure. The patient significant shortness of breath PT/OT is evaluating the patient for possible rehab at this time. The patient also has bilateral leg cellulitis which is being treated with local treatment. Dr. Jewell is following the patient closely. Past medical history reviewed. REVIEW OF SYSTEMS: CARDIOVASCULAR SYSTEM: No angina, palpitations. RESPIRATORY SYSTEM: As mentioned earlier. GI: As mentioned earlier. : No dysuria, retention.. NERVOUS SYSTEM: No numbness or weakness. Current medications are reviewed and include: 1. Acetaminophen. 2. Aspirin. 3. Caffeine Excedrin 2 tablets q.6 p.r.n. 4. Conde 7.5 q.6 p.r.n. 5. DuoNeb q.i.d. and p.r.n. 6. Zyloprim 300 mg daily. 7. Pulmicort 1 mg b.i.d. 8. Wellbutrin XL 300 mg p.o. daily. 9. Tums. 10. Klonopin 0.5 mg each morning and 2 mg at bedtime. 11. Colace 200 mg p.o. daily. 12. Cardura 1 mg p.o. at bedtime. 13. Lovenox 40 mg subcutaneously daily. 14. Vitamin D2 50,000 q.30 days. 15. Perforomist 20 mcg b.i.d. 16. Lasix 40 mg p.o. daily. 17. HydroDIURIL 50 mg p.o. daily. 18. Levsin 0.125 mg q.4 p.r.n. 19. Ammonium lactate. 20. Zestril 20 mg p.o. daily. 21. Solu-Medrol 60 IV q.6. 22. Morphine sulfate 5 mg p.o. q.2 hours. 23. Habitrol 21 daily. 24. Protonix 40 mg IV daily. 25. Seroquel 100 mg p.o. at bedtime. 26. Silvadene 1 application daily. 27. Mark-24 400 mg p.o. at bedtime. 28. Kenalog 1 application daily. 29. Bactrim DS one p.o. b.i.d. 30. Effexor XR 150 mg p.o. daily. PHYSICAL EXAMINATION: Patient is alert and oriented x3. Pulse is 106, blood pressure 123/64, respiratory rate 22, temperature 98 degrees, pulse ox 93% on 5 L. HEENT: Conjunctivae normal. Oral mucosa moist. NECK: No jugular venous distention. No carotid bruit. No lymph node enlargement. CARDIOVASCULAR SYSTEM: S1, S2 muffled. RESPIRATORY SYSTEM: Breath sounds diminished at the bases. Bilateral scattered expiratory rhonchi and crackles. Expiratory wheezing also present. Chest emphysematous. ABDOMEN: Soft, obese, nontender. LEGS: Bilateral swelling as well as erythema and cellulitis present. NERVOUS SYSTEM: No focal deficit. LABS: WBC 13.9. Glucose 112. Albumin is 3.4. UA noted. ASSESSMENT: 1. Chronic obstructive pulmonary disease, acute exacerbation, with acute purulent tracheobronchitis with acute hypoxic respiratory failure, present on admission. 2. Chronic hypoxic respiratory failure, on 5 liters nasal cannula oxygen. 3. Bibasilar atelectasis. 4. History of bilateral venostasis and erythema. 5. History of asthma, chronic obstructive pulmonary disease. 6. History of essential hypertension. 7. History of degenerative joint disease. 8. History of migraines. 9. History of obesity. 10. History of claustrophobia. 11. History of anxiety, depression not otherwise specified. 12. Remote history of ethanol. 13. History of appendectomy. 14. Obesity with a body mass index of 35. 15. Increased white count. 16. Hypoalbuminemia, mild. 17. NO CODE, NO CPR, NO VENT. Recommendations and discussion: I recommend to continue current medications, continue to monitor, symptomatic treatment. Continue with the bronchodilators. Continue with diuretics. Continue with IV steroids. Continue with empiric antibiotics. Guarded prognosis because of multiple complex medical issues. Further recommendations to follow. PT/OT evaluation. Possible ECF rehab. [facility] is an option. See orders for further details. MTDD
[2016-08-14 21:17] LABS: Glucose,Whole Blood 118 mg/dL (75-99)
[2016-08-14] MEDS: THEOPHYLLINE 24 HOUR 400 MG CAP.ER.24H PO SCH (21:44)
[2016-08-14] MEDS: DOXAZOSIN 1 MG TAB PO SCH (21:44)
[2016-08-14] MEDS: clonazePAM 1 MG TAB PO SCH (21:44)
[2016-08-14] MEDS: QUEtiapine 100 MG TAB PO SCH (21:46)
[2016-08-14] MEDS ORDERED: traZODone HCL 50 MG TAB PO SCH (22:00)
[2016-08-15] MEDS: methylPREDNISolone SOD SUCCI 125 MG/2 ML VIAL IV SCH (05:32)
[2016-08-15 07:37] LABS: Glucose,Whole Blood 100 mg/dL (75-99)
[2016-08-15 07:54] VITALS: RESP 18; TEMP 98.2
[2016-08-15] MEDS: INSULIN LISPRO (humaLOG) 300 UNIT/3 ML VIAL SQ SCH ×2 (09:03→12:06)
[2016-08-15] MEDS: buPROPion XL 300 MG TAB.ER.24H PO SCH (09:04)
[2016-08-15] MEDS: DOCUSATE 100 MG CAP PO SCH (09:04)
[2016-08-15] MEDS: ENOXAPARIN 40 MG/0.4 ML SYRINGE SQ SCH (09:05)
[2016-08-15] MEDS: HYDROCHLOROTHIAZIDE 50 MG TAB PO SCH (09:05)
[2016-08-15] MEDS: VENLAFAXINE HCL ER 150 MG CAP PO SCH (09:05)
[2016-08-15] MEDS: FUROSEMIDE 40 MG TAB PO SCH (09:05)
[2016-08-15] MEDS: PANTOPRAZOLE 40 MG/10 ML VIAL IVP SCH (09:05)
[2016-08-15] MEDS: ALLOPURINOL 300 MG TAB PO SCH (09:05)
[2016-08-15] MEDS: LISINOPRIL 20 MG TAB PO SCH (09:05)
[2016-08-15] MEDS: NICOTINE 21MG/24HR PATCH TRANSDERM SCH (09:05)
[2016-08-15] MEDS: clonazePAM 0.5 MG TAB PO SCH (09:06)
[2016-08-15] MEDS: TRIAMCINOLONE 0.1% CREAM 80 GM TUBE TOPICAL SCH ×2 (09:33→12:19)
[2016-08-15] MEDS: AMMONIUM LACTATE 12% CREAM 140 GM TUBE TOPICAL SCH (09:33)
[2016-08-15] MEDS: SULFAMETHOX-TMP 800-160MG 1 EACH TAB PO SCH (09:35)
[2016-08-15 12:02] LABS: Glucose,Whole Blood 92 mg/dL (75-99)
[2016-08-15] MEDS: HYDROcodone/APAP 7.5-325MG 1 EACH TAB PO PRN (12:10)
[2016-08-15] MEDS: methylPREDNISolone SOD SUCCI 40 MG/ML 1 ML VIAL IV SCH ×3 (12:14→15:23)
[2016-08-15] MEDS: BUDESONIDE 1 MG/2 ML NEBU INHALATION SCH (12:16)
[2016-08-15] MEDS: FORMOTEROL FUMARATE 20 MCG/2 ML NEBU INHALATION SCH (12:16)
[2016-08-15] MEDS: IPRATROPIUM-ALBUTEROL 3 ML NEB INHALATION SCH ×3 (12:16→16:08)
--- NOTE | 2016-08-15 13:19 | DS ---
DATE OF ADMISSION: 08/13/2016 DATE OF DISCHARGE: FINAL DIAGNOSES: 1. Chronic obstructive pulmonary disease acute exacerbation with acute purulent tracheobronchitis with acute hypoxic respiratory failure, present on admission. 2. Chronic hypoxic respiratory failure on 5 L nasal cannula oxygen. 3. Bibasilar atelectasis. 4. History of bilateral venostasis and erythema. 5. History of asthma, chronic obstructive pulmonary disease. 6. History of essential hypertension. 7. History of degenerative joint disease. 8. History of migraines. 9. History of obesity. 10. History of claustrophobia. 11. History of anxiety, depression, not otherwise specified. 12. Remote history of EtOH. 13. History of appendectomy. 14. History of obesity, body mass index of 35. 15. Increased WBC. 16. Hypoalbuminemia, mild. 17. NO CODE, NO CPR, NO VENT. DISCHARGE DISPOSITION: The patient will discharged in a stable condition with guarded prognosis to [facility]. Total time taken 35 minutes. HISTORY OF PRESENT ILLNESS: This 61-year-old gentleman with a past medical history of multiple medical problems as mentioned earlier including COPD and multiple other medical problems admitted with COPD acute exacerbation, treated symptomatically. Patient improved significantly with bronchodilators. [facility] rehab and transfer is being planned at this time. On exam, vitals are stable. CARDIOVASCULAR SYSTEM: S1 and S2 muffled. RESPIRATORY: A few scattered rhonchi. ABDOMEN: Soft. NERVOUS SYSTEM: No focal deficits. The patient would also like to be transitioned to hospice also. Discharge advice and medications currently are: 1. Diet is cardiac as tolerated. 2. Activity as tolerated. 3. Follow up with Dr. Oropeza in 2 to 3 days. Medications are: 1. Zyloprim 300 mg p.o. daily. 2. Lac-Hydrin one application topically. 3. Excedrin q.6 p.r.n. 4. Calcium carbonate Tums 500 mg p.o. q.i.d. 5. Colace 200 mg p.o. daily. 6. Cardura 1 mg p.o. q.h.s. 7. Vitamin D2, 50,000 p.o. 30 days. 8. Advair 1 puff b.i.d. 9. Lasix 40 mg p.o. daily. 10. Rincon 7.5 q.6 p.r.n. 11. Haldol 50 mg IM q. monthly. 12. HydroDIURIL 50 mg p.o. daily. 13. Levsin 0.125 mg to 0.25 mg q.4 p.r.n. 14. Albuterol Atrovent updrafts q.i.d. and p.r.n. 15. Ativan 0.5 mg p.o. t.i.d. 16. Zestril 20 mg p.o. daily. 17. Morphine solution 5 mg p.o. p.r.n. 18. Habitrol 21 daily. 19. Seroquel 100 mg q.h.s. 20. Silver sulfadiazine local application to both legs and dressing with Kerlix and Armaan wrap. 21. Bactrim DS one p.o. b.i.d. for 5 days. 22. Mark-24, 400 mg q.h.s. 23. Kenalog one application topically daily. 24. Effexor XR 150 mg p.o. daily. 25. Wellbutrin XL 300 mg p.o. daily. 26. Klonopin 2 mg p.o. q.h.s. and Klonopin 0.5 mg q.a.m. 27. Desyrel 150 mg p.o. q.h.s. MTDD
--- NOTE | 2016-08-15 13:56 | PN ---
This is a 61-year-old male with a history of underlying COPD. He was admitted with a diagnosis of COPD exacerbation, characterized by difficulty breathing, chest congestion, shortness breath, and phlegm production. He was also sweating profusely. He was residing at the [facility]. He was apparently discussing his case with his hospice nurse yesterday. There may be some talk of discharge today to the [facility]. The patient is a ( ) nancy. His moods go from being very calm to be very agitated in seconds sometimes. Anyway, he seems like he is doing okay. He states that he will eventually pay off the bills he owes me. Anyway, from the breathing standpoint, I think he is doing better. Currently, temperature is 98.2, heart rate 100, respiratory rate 18, blood pressure 124/76, mean 92, 5 L saturation is 100%. Appears in no acute distress. HEENT examination is grossly unremarkable. Mucous membranes are moist. Neck is supple. Full range of motion. No adenopathy, thyromegaly or neck vein distention. Cardiovascular examination reveals regular rhythm and rate. S1, S2 normal. No murmur. Lungs reveal relatively clear breath sounds. A few scattered rhonchi. No wheezes or crackles. Abdomen is obese. Extremities are intact. He does have lower extremity cellulitis with diffuse erythema and hyperemia of the skin of the lower extremities. The legs are wrapped. There is edema. That is improved. Neurologic examination is nonfocal. Skin is otherwise negative. Labs are reviewed. Nothing new to report. No new x-rays to report. Medications are reviewed. ASSESSMENT: 1. Chronic obstructive pulmonary disease exacerbation complicated by purulent tracheobronchitis in a patient with severe chronic obstructive pulmonary disease. 2. Possible mild fluid overload, resolved. 3. History of multiple other medical problems and comorbidities. 4. History of lower extremity cellulitis and edema. 5. Chronic hypoxemia requiring 24/7 oxygen therapy. 6. Cor pulmonale. 7. Obesity. PLAN: The patient is apparently being discharged to the [facility]. He did discuss this with hospice nurse from [facility]. Will continue to follow. Prognosis is very guarded.
--- NOTE | 2016-08-15 14:28 | XR ---
EXAMINATION TYPE: XR shoulder complete RT DATE OF EXAM: 08/15/2016 2:24 PM CLINICAL HISTORY: pain TECHNIQUE: Three views of the right shoulder are obtained. COMPARISON: None FINDINGS: There is no acute fracture/dislocation evident. The acromioclavicular and glenohumeral erasmo int spaces appear mildly narrowed.. The visualized ribs are intact and unremarkable. IMPRESSION: 1. There is no acute fracture or dislocation. ICD 10 NO FRACTURE, INITIAL EVALUATION
[2016-08-15] MEDS: ASPIRIN-ACET-CAFF 250-250-65MG 1 EACH TAB PO PRN (14:38)
[2016-08-15 16:11] VITALS: BP 130/76
[2016-08-15 17:26] VITALS: PULSE 78
[2016-08-16] MEDS ORDERED: PANTOPRAZOLE 40 MG TABLET PO SCH (07:30)
[2016-08-20] MEDS ORDERED: ERGOCALCIFEROL 50,000 UNIT CAP PO SCH (09:00)
== END 2016-08-15 17:58 | disposition hospice, home (50) | DRG 190 ==
LOC: EC 03:06 → 5MS5E 04:06 → OBSVTOIN 09:03 → 5MS5E 09:59
PROVIDERS: ADMIT Hospitalist; ATTEND Hospitalist
DX: J44.0 Chronic obstructive pulmonary disease with (acute) lower respiratory infection (principal); J96.21 Acute and chronic respiratory failure with hypoxia; L03.115 Cellulitis of right lower limb; L03.116 Cellulitis of left lower limb; J98.11 Atelectasis; I27.81 Cor pulmonale (chronic); E88.09 Other disorders of plasma-protein metabolism, not elsewhere classified; I10 Essential (primary) hypertension; E66.9 Obesity, unspecified; J20.9 Acute bronchitis, unspecified; J44.1 Chronic obstructive pulmonary disease with (acute) exacerbation; F32.9 Major depressive disorder, single episode, unspecified; F40.240 Claustrophobia; G43.909 Migraine, unspecified, not intractable, without status migrainosus; M19.90 Unspecified osteoarthritis, unspecified site; J45.909 Unspecified asthma, uncomplicated; F41.9 Anxiety disorder, unspecified; R45.1 Restlessness and agitation; Z99.81 Dependence on supplemental oxygen; Z68.35 Body mass index [BMI] 35.0-35.9, adult; Z79.899 Other long term (current) drug therapy; Z87.891 Personal history of nicotine dependence; Z91.19 Patient's noncompliance with other medical treatment and regimen; Z66 Do not resuscitate
CPT/HCPCS: 36415; 71010; 80053; 81001; 82550; 82553; 83036; 83735; 83880; 84484; 85025; 85610; 85730; 87040; 87086; 93005; 94640; 94644; 96361; 96374; 99285